=== PATIENT | male | born 1955 | race Caucasian/White ===

== ENCOUNTER 2017-05-10 09:43 | Inpatient (IN) | payer BC, OTHER ==
[2017-05-10 10:22] LABS: #Basophils 0.1 thou/uL (0.0-0.2); #Eosinphils 0.3 thou/uL (0.0-0.7); #Lymphocytes 1.6 thou/uL (1.20-3.40); #Monocytes 0.6 thou/uL (0.11-0.59); #Neutrophils 3.5 thou/uL (1.40-6.50); %Basophils 0.9 % (0.0-1.0); %Eosinophils 4.9 % (0.0-10.0); %Lymphocytes 26.5 % (21.0-51.0); %Monocytes 10.1 % (0.0-10.0); %Neutrophils 57.7 % (42.0-75.0); Hemoglobin 13.8 g/dL (14.0-18.0); Mean Corpuscular HGB CONC 33.2 g/dL (32.0-36.0); Mean Corpuscular Hemoglobin 29.4 pg (27.0-31.0); Mean Corpuscular Volume 88.7 fl (80.0-94.0); Mean Platelet Volume 6.5 fL (7.4-10.4); Platelet Count 301 thou/uL (130-400); RBC Distribution Width 12.8 % (11.5-14.5); White Blood Cell (WBC) Count 6.1 thou/uL (4.8-10.8)
[2017-05-10] MEDS ORDERED: methylPREDNISolone Sod Succ/PF 125 MG/2 ML VIAL ONE (10:34)
[2017-05-10] MEDS ORDERED: Sterile Water 10 ML ONE (10:35)
[2017-05-10 10:44] LABS: ALT (SGPT) 24 U/L (8-55); AST (SGOT) 20 U/L (5-34); Albumin 3.8 g/dL (3.5-5.0); Alkaline Phosphatase 109 U/L (40-150); Anion Gap 13 mmol/L (10-20); BUN (Urea Nitrogen) 9 mg/dL (8.4-25.7); Bilirubin, Total 0.9 mg/dL (0.2-1.2); CK (CPK) 163 U/L (30-200); Calc. Creatinine Clearance 0 mL/min (70-130); Carbon Dioxide 22 mmol/L (22-29); Chloride 105 mmol/L (98-107); Estimated GFR-MDRD Greater than 90; Globulin 2.9 g/dL (2.4-3.5); Glucose 137 mg/dL (70-105); Potassium 3.9 mmol/L (3.5-5.1); Protein, Total 6.7 g/dL (6.0-8.3); Sodium 136 mmol/L (136-145)
[2017-05-10 10:49] LABS: CKMB 2.8 ng/mL (0-6.6); Troponin I Less than 0.010 ng/mL (< 0.028)
--- NOTE | 2017-05-10 10:52 | RAD ---
PORTABLE CHEST ONE VIEW: 05/10/2017 10:00 a.m. HISTORY: Dyspnea. Chest pain. COMPARISON: 12/03/2016 FINDINGS: The heart size is borderline. No lobar consolidations, pneumothoraces, or large effusions are seen. There is blunting of the left costophrenic angle, which may be due to scarring or small effusion. POS: [facility]
[2017-05-10] MEDS ORDERED: Albuterol Sulfate 2.5 mg/3 ml Neb NEB PRN (11:27)
[2017-05-10] MEDS ORDERED: Ondansetron ODT 4 MG TAB PO PRN (11:30)
[2017-05-10] MEDS ORDERED: HYDROcodone/Acetaminophen 5/325 mg Tablet PO PRN (11:30)
[2017-05-10] MEDS ORDERED: Acetaminophen 325 MG TAB PO PRN (11:30)
[2017-05-10] MEDS ORDERED: cefTRIAXone\\ROCEPHIN 1 GM in Sodium Chloride 0.9% 100 ML IVPB SCH (11:30)
[2017-05-10] MEDS ORDERED: Dextrose 5% in Water 1,000 ML IV PRN (11:56)
[2017-05-10] MEDS ORDERED: Dextrose 50% Abboject 50 ML SYRINGE SLOW IVP PRN (11:56)
[2017-05-10] MEDS ORDERED: Diabetic Tussin 200 MG/10 ML UDCUP PO PRN (12:11)
[2017-05-10] MEDS ORDERED: cefTRIAXone\\ROCEPHIN 1 GM, Syringe 0.4 ML in Sterile Water 9.6 ML SLOW IVP SCH (13:00)
[2017-05-10] MEDS ORDERED: Heparin 5,000 UNITS/ML VIAL SC SCH (15:00)
[2017-05-10 16:25] VITALS: BMI 37.3
[2017-05-10 16:38] LABS: Troponin I 0.015 ng/mL (< 0.028)
[2017-05-10] MEDS ORDERED: Sodium Chloride 3% (15 ML) NEB NEB PRN (17:03)
[2017-05-10] MEDS ORDERED: MEPOLIZUMAB 100 MG SQ SCH (17:15)
--- NOTE | 2017-05-10 18:43 | HP ---
PRIMARY CARE PHYSICIAN: None. PRESENTING COMPLAINT: Shortness of breath. HISTORY OF PRESENT ILLNESS: Mr. Leonel Barrera is a 61-year-old male with a past medical history of chronic respiratory failure on home oxygen, COPD, REMINGTON, anxiety disorder who presented to the emergency room with shortness of breath which he reported started this morning. It occurred at rest and is associated with pleuritic chest pain. He denies fevers, chills, PND, orthopnea, palpitations or lower extremity edema. He uses home nebulizers and inhalers without success and called the EMS. On arrival, they immediately gave him nebulizer treatment with some improvement, but due to continued reduced oxygen saturation, he was started on CPAP. PAST MEDICAL HISTORY: As stated in the HPI (COPD, type 2 diabetes mellitus, anxiety disorder, chronic respiratory failure). PAST SURGICAL HISTORY: None. FAMILY HISTORY: Reviewed and noncontributory. SOCIAL HISTORY: Former smoker. Occasionally drinks alcohol, but denies use of illicit drugs. ALLERGIES: No known drug allergies. PHYSICAL EXAMINATION: VITAL SIGNS: Stable. GENERAL: Not in acute distress, on CPAP and saturating well. HEENT: Negative. RESPIRATORY: Per HPI. CARDIOVASCULAR: Per HPI. ABDOMEN: Soft, nontender, nondistended. Bowel sounds positive. No organomegaly. GENITOURINARY: Deferred. MUSCULOSKELETAL: Moves all extremities spontaneously. SKIN: Warm and well-perfused. No rashes or lesions. NEUROLOGIC: Alert and well oriented to time, place and person. No focal deficits. PSYCHIATRIC: Normal mood and affect. Denies SI/HI or depressed mood. LABORATORY DATA: CBC largely unremarkable as well as CMP. Initial troponin less than 0.010. BNP 11. IMAGING: Chest x-ray showed no acute process, apart from blunting of the left costophrenic angle which may be due to scarring or small effusion. EKG showed no signs of acute ischemia. ASSESSMENT AND PLAN: 1. Acute on chronic respiratory failure with hypoxia, which is likely from chronic obstructive pulmonary disease exacerbation which could have been aggravated by an upper respiratory tract infection/bronchitis/pneumonia. He has been started on BiPAP and nebulizer treatment with improvement. We will continue this treatment, add IV levofloxacin and IV Solu-Medrol. We will monitor oxygen status and monitor this patient in the IMCU. 2. Chronic obstructive pulmonary disease exacerbation as above. 3. Type 2 diabetes mellitus. He is currently at goal. We will obtain hemoglobin A1c, place on a diabetic diet. I will monitor his blood sugars before meals and at bedtime. We will also get and restart his home medications. 4. Anxiety disorder, stable. We will resume home medications. LIZZETH
[2017-05-10] MEDS: metFORMIN 500 MG TAB PO SCH (20:13)
[2017-05-10] MEDS: Meclizine HCl 25 MG TAB PO SCH (20:13)
[2017-05-10] MEDS: Montelukast Sodium 10 mg Tablet PO SCH (20:13)
[2017-05-10] MEDS: HumaLOG 300 UNITS/3 ML VIAL SC PRN (20:19)
[2017-05-11 05:35] LABS: #Lymphocytes 0.7 thou/uL (1.20-3.40); #Monocytes 0.3 thou/uL (0.11-0.59); %Basophils 0.1 % (0.0-1.0); %Eosinophils 0.2 % (0.0-10.0); %Lymphocytes 7.5 % (21.0-51.0); %Monocytes 2.9 % (0.0-10.0); %Neutrophils 89.3 % (42.0-75.0); Hemoglobin 13.4 g/dL (14.0-18.0); Mean Corpuscular HGB CONC 34.1 g/dL (32.0-36.0); Mean Corpuscular Hemoglobin 30.3 pg (27.0-31.0); Mean Corpuscular Volume 88.9 fl (80.0-94.0); Mean Platelet Volume 6.9 fL (7.4-10.4); Platelet Count 300 thou/uL (130-400); RBC Distribution Width 12.9 % (11.5-14.5); Red Blood Cell (RBC) Count 4.44 mill/uL (4.70-6.10); White Blood Cell (WBC) Count 8.9 thou/uL (4.8-10.8)
[2017-05-11 05:58] LABS: Hemoglobin A1c 7.6 % (4.0-6.0)
[2017-05-11] MEDS: HumaLOG 300 UNITS/3 ML VIAL SC PRN ×3 (06:02→21:09)
[2017-05-11 06:14] LABS: Anion Gap 10 mmol/L (10-20); BUN (Urea Nitrogen) 13 mg/dL (8.4-25.7); Calc. Creatinine Clearance 151 mL/min (70-130); Calcium 9.3 mg/dL (7.8-10.44); Carbon Dioxide 24 mmol/L (22-29); Chloride 104 mmol/L (98-107); Estimated GFR-MDRD Greater than 90; Glucose 183 mg/dL (70-105); Potassium 4.3 mmol/L (3.5-5.1); Sodium 134 mmol/L (136-145)
[2017-05-11] MEDS: metFORMIN 500 MG TAB PO SCH ×2 (08:41→20:30)
[2017-05-11] MEDS: Meclizine HCl 25 MG TAB PO SCH ×3 (08:41→20:30)
[2017-05-11] MEDS: Enoxaparin Sodium 40 MG/0.4 ML SYRINGE SC SCH (08:42)
[2017-05-11] MEDS ORDERED: NALTREXONE HCL PO SCH (09:00)
[2017-05-11] MEDS ORDERED: BUPROPION HCL PO SCH (09:00)
--- NOTE | 2017-05-11 09:23 | CON ---
DATE OF CONSULTATION: 05/11/2017 HISTORY OF PRESENT ILLNESS: A 61-year-old gentleman who normally seeks care at the [facility], who came in here because of insurance issues. He presented yesterday with coughing and wheezing, developed some right-sided chest pain. He thought he had a collapsed lung. He had a previous left-sided spontaneous pneumothorax requiring thoracotomy and closure of his leak, he says at [facility] some time ago. He is being in and out of the hospital numerous times. He has diagnosis of COPD, sleep apnea. He is a former smoker. He denies any chills or sweats. Denies any obviouschest pain or sputum. PAST MEDICAL HISTORY: COPD, sleep apnea, obesity, spontaneous pneumothorax, diabetes, hypertension, GI problem. MEDICATIONS: Prednisone 20, metformin 500 twice a day, Spiriva once a day, Zoloft 100, Contrave once a day, Singulair 10, Nucala 100, meclizine 25, DuoNeb , Dexilant 60, Symbicort nasal spray. He has now since admission started on steroids, neb treatments, broad-spectrum antibiotics. ALLERGIES: No medications. SOCIAL HISTORY: Worked for the [employer]. FAMILY HISTORY: Unremarkable for any breathing issues. REVIEW OF SYSTEMS: Ten-point negative. PHYSICAL EXAMINATION: VITAL SIGNS: Sats are 94 on 3 liters, pulse 80, respirations 18, temperature 98. CHEST: Diffuse wheezing and rhonchi. CARDIAC: Normal S1, S2. No gallops. ABDOMEN: Soft, no masses. LABORATORY: White count 8000, H&H 13 and 39, platelet count 300. Electrolytes are normal. X-ray shows no acute infiltrates. Clearly, it did not show any pneumothorax which the patient was worried about. IMPRESSION: 1. Chronic obstructive pulmonary disease exacerbation, bronchitis. 2. Right chest pain, no evidence of any pneumothorax. 3. Diabetes. 4. Hypertension. 5. Sleep apnea. PLAN: The patient is on adequate medication, neb treatments, steroids. Switch over to oral medication in the next 24-48 hours, discharged home if she is stable in the next 24-48 hours. We will follow this consultation note, 70 minutes of which 50% of the time spent in direct patient care. LIZZETH
--- NOTE | 2017-05-11 12:23 | PDOC.PN ---
- Subjective Encounter Start Date: 05/11/17 Encounter Start Time: 12:25 Subjective: No new complaints. -: No acute events overnight. Transitioned from bilevel to NC O2 - Objective Resuscitation Status: Resuscitation Status FULL:Full Resuscitation MAR Reviewed: Yes Vital Signs & Weight: Vital Signs (12 hours) Temp Pulse Resp BP Pulse Ox 05/11/17 11:52 99.0 F 120 H 24 H 115/61 95 05/11/17 10:11 118 H 20 94 L 05/11/17 08:00 98 F 88 18 93 L 05/11/17 07:52 92 18 94 L 05/11/17 07:16 98.0 F 88 18 124/65 93 L 05/11/17 03:40 98 19 101/57 L 96 05/11/17 02:10 96 20 96 Weight Weight 251 lb 9 oz I&O: 05/10/17 05/11/17 05/12/17 06:59 06:59 06:59 Intake Total 1441 Balance 1441 Result Diagrams: 05/11/17 04:44 05/11/17 04:44 Additional Labs: Accuchecks 05/11/17 05/11/17 05/10/17 11:06 06:02 20:16 POC Glucose 296 H 195 H 233 H 05/10/17 16:59 POC Glucose 189 H Phys Exam - Physical Examination Constitutional: NAD HEENT: PERRLA, moist MMs, sclera anicteric Neck: supple, full ROM Respiratory: no rales, no rhonchi, wheezing present, clear to auscultation bilateral Cardiovascular: RRR, no significant murmur, no rub Gastrointestinal: soft, non-tender, no distention, positive bowel sounds Musculoskeletal: no edema, pulses present Neurological: non-focal, moves all 4 limbs Psychiatric: normal affect, A&O x 3 Skin: no rash, normal turgor Dx/Plan (1) Acute and chronic respiratory failure with hypoxia Code(s): J96.21 - ACUTE AND CHRONIC RESPIRATORY FAILURE WITH HYPOXIA Status: Acute Comment: Improving with therapy. (2) DM2 (diabetes mellitus, type 2) Status: Acute Qualifiers: Diabetes mellitus complication status: without complication Diabetes mellitus termination clerk insulin use: without care home use Qualified Code(s): E11.9 - Type 2 diabetes mellitus without complications Comment: Controlled. (3) Acute exacerbation of chronic obstructive pulmonary disease Code(s): J44.1 - CHRONIC OBSTRUCTIVE PULMONARY DISEASE W (ACUTE) EXACERBATION Status: Acute Plan: See problem #1 (4) Anxiety Code(s): F41.9 - ANXIETY DISORDER, UNSPECIFIED Status: Acute Comment: Continue home meds. (5) REMINGTON (obstructive sleep apnea) Code(s): G47.33 - OBSTRUCTIVE SLEEP APNEA (ADULT) (PEDIATRIC) Status: Chronic Comment: on home BiPAP. Will continue. - Plan cont current plan of care, continue antibiotics, respiratory therapy, DVT proph w/lovenox Continue abx, O2 supplementation, IV steroids and nebs -: Likely discharge tomorrow. * .
[2017-05-11] MEDS: Mometasone/Formoterol 120 PUFF INHALER INH SCH (19:43)
[2017-05-11] MEDS: Montelukast Sodium 10 mg Tablet PO SCH (20:30)
[2017-05-12] MEDS: HumaLOG 300 UNITS/3 ML VIAL SC PRN ×2 (05:23→12:16)
[2017-05-12 06:03] LABS: #Lymphocytes 0.7 thou/uL (1.20-3.40); #Neutrophils 14.7 thou/uL (1.40-6.50); %Eosinophils 0.2 % (0.0-10.0); %Monocytes 6.1 % (0.0-10.0); %Neutrophils 89.7 % (42.0-75.0); Hemoglobin 13.4 g/dL (14.0-18.0); Mean Corpuscular HGB CONC 33.7 g/dL (32.0-36.0); Mean Corpuscular Hemoglobin 30.2 pg (27.0-31.0); Mean Corpuscular Volume 89.6 fl (80.0-94.0); Mean Platelet Volume 7.2 fL (7.4-10.4); Platelet Count 334 thou/uL (130-400); RBC Distribution Width 12.9 % (11.5-14.5); Red Blood Cell (RBC) Count 4.43 mill/uL (4.70-6.10); White Blood Cell (WBC) Count 16.4 thou/uL (4.8-10.8)
[2017-05-12 06:19] LABS: Anion Gap 16 mmol/L (10-20); BUN (Urea Nitrogen) 29 mg/dL (8.4-25.7); Calc. Creatinine Clearance 135 mL/min (70-130); Calcium 9.3 mg/dL (7.8-10.44); Carbon Dioxide 25 mmol/L (22-29); Chloride 103 mmol/L (98-107); Estimated GFR-MDRD 82; Glucose 265 mg/dL (70-105); Potassium 4.9 mmol/L (3.5-5.1); Sodium 139 mmol/L (136-145)
--- NOTE | 2017-05-12 06:19 | PRG ---
DATE OF SERVICE: 05/12/2017 This morning he is awake, alert, responsive. He is better. PHYSICAL EXAMINATION: VITAL SIGNS: His sats are 92 on 3 liters, pulse 118, blood pressure 130/80, respiration rate 18, he is on BiPAP. CHEST: Chest reveals minimal wheezing. CARDIAC: Normal S1-S2. ABDOMEN: Soft, no masses. IMPRESSION: 1. Chronic obstructive pulmonary disease exacerbation. 2. Bronchitis. 3. Former smoker. PLAN: He is much improved. I deescalated his medications. Switch to oral prednisone, oral antibiot ics, neb treatments, PT. Hopefully he can be discharged home in the next 24-48 hours.
[2017-05-12] MEDS: Mometasone/Formoterol 120 PUFF INHALER INH SCH (06:49)
[2017-05-12] MEDS: metFORMIN 500 MG TAB PO SCH (08:46)
[2017-05-12] MEDS: Meclizine HCl 25 MG TAB PO SCH ×2 (08:50→15:13)
[2017-05-12] MEDS: Enoxaparin Sodium 40 MG/0.4 ML SYRINGE SC SCH (09:05)
[2017-05-12 15:13] VITALS: BP 133/76; TEMP 97.5
--- NOTE | 2017-05-12 21:51 | DIS ---
DATE OF ADMISSION: 05/10/2017 DATE OF DISCHARGE: 05/12/2017 DISCHARGE DIAGNOSES: Acute on chronic hypoxic respiratory failure, chronic obstructive pulmonary disease exacerbation, type 2 diabetes mellitus, obstructive sleep apnea, obesity. HISTORY OF PRESENT ILLNESS/HOSPITAL COURSE: Mr. Holly Mata is a 61- year-old male with a past medical history of chronic respiratory failure on 3 liters home oxygen, COPD, REMINGTON, anxiety disorder, who presented to the emergency room with shortness of breath at rest associated with pleuritic chest pain. He had no fevers, chills, PND, orthopnea, palpitations, lower extremity edema. He used his home nebulizer and inhalers unsuccessfully and decided to call EMS. On arrival, he was given nebulizer treatment with some improvement; however, due to his continued reduced oxygen saturations, he was started on CPAP and transported to the emergency room. In the emergency room, his labs were relatively unremarkable. Chest x-ray showed no acute pathology. EKG has no signs of active ischemia. He was started on BiPAP, IV steroids, nebulizer treatments scheduled and p.r.n., as well as levofloxacin for possible pneumonia/ bronchitis. While on admission, he improved tremendously with treatment, and by the day of discharge, he reports that he felt well and stable for discharge. He was back to his home oxygen requirement and was saturating well. DISCHARGE MEDICATIONS: Levofloxacin 750 mg daily, prednisone 40 mg every morning with breakfast, ipratropium/albuterol sulfate 1 puff inhaled as needed for shortness of breath or wheezing, albuterol sulfate 2.5 mg nebulizers every 2 hours as needed for wheezing, budesonide/formoterol 2 puffs inhaled twice daily, sertraline 100 mg daily, Tiotropium inhaler 18 mcg inhaled daily, sodium chloride 3%, 5 mg 3 times a day as needed for shortness of breath, beclomethasone dipropionate 2 sprays in each naris daily, montelukast sodium 10 mg daily, meclizine 25 mg orally 3 times a day, naltrexone hydrochloride/ bupropion 1 tablet orally every morning, dexlansoprazole 60 mg daily, metformin 500 mg b.i.d., Mucinex 1 tab twice a day, and prednisone 20 mg every morning with breakfast. PHYSICAL EXAMINATION: He was examined on the day of discharge. VITAL SIGNS: Heart rate was 95, temperature 97.8 degrees Fahrenheit, oxygen saturation 95% on 3 liters nasal cannula, respiration rate 16, blood pressure 133/76. GENERAL: Not in acute distress, sitting comfortably in bed. HEENT: PERRLA. Moist mucous membranes. Sclerae are anicteric. NECK: Supple. Full range of movement. RESPIRATORY: No rales, no rhonchi, minimal wheezing bilateral lung galaviz, clear to auscultation otherwise bilaterally. CARDIOVASCULAR: Regular rate and rhythm. No murmurs, rubs or gallops. GASTROINTESTINAL: Soft, nontender, nondistended, positive bowel sounds. No organomegaly. MUSCULOSKELETAL: No edema. Pulses present. NEUROLOGICAL: Nonfocal. Moves all limbs spontaneously. PSYCHIATRIC: Normal mood and affect. Alert and well oriented to time, place, and person. SKIN: No rash or lesions. Warm, dry, and well-perfused. LABORATORY DATA: Sodium 139, potassium 4.9, chloride 103, carbon dioxide 25, anion gap 16, BUN 29, creatinine 0.94, glucose 265, calcium 9.3. WBC 16.4, hemoglobin 13.4, and platelets 334. IMAGING: Chest x-ray (05/10/2017). Heart size is borderline. No lobar consolidation, pneumothorax or large effusions are seen. Blunting of left costophrenic angle, which may be due to scarring or small effusion. CONSULTS: None. CONDITION AT DISCHARGE: Stable and improved. PROCEDURES: None. DIET: Heart healthy, diabetic. CARE GOALS: To follow up with his primary care physician within 1 week of discharge. ACTIVITY: Resume as tolerated. Discharge time 65 minutes including chart review and documentation. [facility]ITALSharif
--- NOTE | 2017-05-15 19:43 | EKG ---
Test Reason : Blood Pressure : / mmHG Vent. Rate : 091 BPM Atrial Rate : 091 BPM P-R Int : 178 ms QRS Dur : 086 ms QT Int : 344 ms P-R-T Axes : 041 062 028 degrees QTc Int : 423 ms Normal sinus rhythm Normal ECG Confirmed by JANNET JIMENEZ, BRITNEY Aldridge ([id number]), make up editor ALVINO APONTE ([id number]) on 05/15/2017 7:43:15 PM Referred By: MEHNAZ Confirmed By:BRITNEY POWER MD
== END 2017-05-12 15:50 | disposition home or self-care (01) | DRG 189 ==
LOC: ERS 09:43 → IMCU/EMU 11:30 → T4-B 05-11 16:59
PROVIDERS: ADMIT Internal Medicine; ATTEND Internal Medicine
PROC: 5A09357 Assistance with Respiratory Ventilation, Less than 24 Consecutive Hours, Continuous Positive Airway Pressure (ICD-10-PCS; principal; 2017-05-11)
DX: J96.21 Acute and chronic respiratory failure with hypoxia (principal); J44.1 Chronic obstructive pulmonary disease with (acute) exacerbation; Z99.81 Dependence on supplemental oxygen; E11.9 Type 2 diabetes mellitus without complications; F41.9 Anxiety disorder, unspecified; G47.33 Obstructive sleep apnea (adult) (pediatric); I10 Essential (primary) hypertension; E66.9 Obesity, unspecified; Z68.37 Body mass index [BMI] 37.0-37.9, adult; Z87.891 Personal history of nicotine dependence; Z79.84 Long term (current) use of oral hypoglycemic drugs; Z79.899 Other long term (current) drug therapy
CPT/HCPCS: 36415; 36416; 71045; 80048; 80053; 82550; 82553; 83036; 83880; 84484; 85025; 93005; 94640; 94660; 94664; 96374; 96375; A4216; J0696; J1650; J1956; J2920; J2930; J7620

== ENCOUNTER 2017-07-02 22:15 | Inpatient (IN) | payer OTHER ==
[2017-07-02] MEDS ORDERED: methylPREDNISolone Sod Succ/PF 125 MG/2 ML VIAL ONE (22:48)
[2017-07-02 22:53] LABS: #Basophils 0.1 thou/uL (0.0-0.2); #Eosinphils 0.6 thou/uL (0.0-0.7); #Lymphocytes 1.9 thou/uL (1.20-3.40); #Monocytes 0.6 thou/uL (0.11-0.59); #Neutrophils 4.6 thou/uL (1.40-6.50); %Eosinophils 7.7 % (0.0-10.0); %Lymphocytes 24.8 % (21.0-51.0); %Monocytes 7.4 % (0.0-10.0); %Neutrophils 59.1 % (42.0-75.0); Hemoglobin 14.4 g/dL (14.0-18.0); Mean Corpuscular HGB CONC 35.3 g/dL (32.0-36.0); Mean Corpuscular Hemoglobin 30.7 pg (27.0-31.0); Mean Corpuscular Volume 86.9 fl (80.0-94.0); Mean Platelet Volume 7.1 fL (7.4-10.4); Platelet Count 256 thou/uL (130-400); RBC Distribution Width 14.4 % (11.5-14.5); White Blood Cell (WBC) Count 7.7 thou/uL (4.8-10.8)
--- NOTE | 2017-07-02 22:59 | RAD ---
SINGLE VIEW OF THE CHEST: 07/02/17 COMPARISON: 05/10/17 HISTORY: Wheezing and dyspnea. FINDINGS: Single view of the chest shows a normal sized cardiomediastinal silhouette. There is no evidence of c onsolidation, mass, or pleural effusion. The bones are unremarkable. IMPRESSION: No evidence of acute cardiopulmonary disease. POS: [facility]
[2017-07-02] MEDS ORDERED: Albuterol Sulfate 2.5 mg/3 ml Neb ONE (23:01)
[2017-07-02 23:04] LABS: ALT (SGPT) 23 U/L (8-55); AST (SGOT) 19 U/L (5-34); Alkaline Phosphatase 119 U/L (40-150); Anion Gap 17 mmol/L (10-20); BUN (Urea Nitrogen) 16 mg/dL (8.4-25.7); Bilirubin, Total 0.4 mg/dL (0.2-1.2); CK (CPK) 80 U/L (30-200); Calc. Creatinine Clearance 0 mL/min (70-130); Calcium 9.2 mg/dL (7.8-10.44); Carbon Dioxide 20 mmol/L (22-29); Chloride 108 mmol/L (98-107); Estimated GFR-MDRD 74; Globulin 3.3 g/dL (2.4-3.5); Glucose 175 mg/dL (70-105); Potassium 4.1 mmol/L (3.5-5.1); Protein, Total 7.3 g/dL (6.0-8.3); Sodium 141 mmol/L (136-145)
[2017-07-02 23:07] LABS: CKMB 2.2 ng/mL (0-6.6); Troponin I Less than 0.010 ng/mL (< 0.028)
[2017-07-03] MEDS ORDERED: Acetaminophen 325 MG TAB PO PRN ×2 (01:02→01:05)
[2017-07-03] MEDS ORDERED: Ondansetron HCl/PF 4 MG/2 ML Vial IVP PRN ×2 (01:02→01:05)
[2017-07-03] MEDS ORDERED: Ondansetron ODT 4 MG TAB SL PRN (01:02)
[2017-07-03] MEDS ORDERED: Dextrose 5% in Water 1,000 ML IV PRN (01:05)
[2017-07-03] MEDS ORDERED: Ondansetron ODT 4 MG TAB PO PRN (01:05)
[2017-07-03] MEDS ORDERED: Dextrose 50% Abboject 50 ML SYRINGE SLOW IVP PRN (01:05)
[2017-07-03] MEDS ORDERED: Lorazepam 1 MG TAB PO PRN (01:05)
[2017-07-03] MEDS ORDERED: Mag-Al 1200 mg/1200 mg/30 ML UDCUP PO PRN (01:05)
[2017-07-03] MEDS ORDERED: hydrALAZINE 20 MG/ML VIAL SLOW IVP PRN (01:05)
[2017-07-03] MEDS ORDERED: Milk Of Magnesia 30 ML UDCUP PO PRN (01:05)
[2017-07-03 01:12] VITALS: BMI 37.1
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
[2017-07-03] MEDS: Sodium Chloride 0.9% 1,000 ML IV SCH (01:55)
[2017-07-03] MEDS ORDERED: Magnesium 2 GM/NS 0.9% 100 ML 2 GM in Premix Bag 1 BAG IVPB SCH (02:15)
[2017-07-03] MEDS ORDERED: Magnesium 2 GM/NS 0.9% 50 ML 2 GM in Premix Bag 1 BAG IVPB SCH (02:15)
[2017-07-03] MEDS ORDERED: Albuterol Sulfate 2.5 mg/3 ml Neb NEB SCH (02:30)
[2017-07-03 02:53] LABS: Base Excess (BEa) -3.3 mEq/L (0 (+/-) 2.5); CO2 Tension 40.8 mmHg (35.0-45.0); Hematocrit-ABG 42.6 % (42.0-52.0); O2 Tension (PaO2) 129.3 mmHg (80.0-100.0); pH, Arterial 7.35 (7.35-7.45)
[2017-07-03 02:54] LABS: Calcium, Ionized 1.2 mmol/L (1.12-1.30); Hemoglobin (Hb) -3.3 g/dL (14.0-18.0); Puncture Site RRAD
[2017-07-03 04:37] LABS: #Eosinphils 0.1 thou/uL (0.0-0.7); #Lymphocytes 0.4 thou/uL (1.20-3.40); #Monocytes 0.2 thou/uL (0.11-0.59); #Neutrophils 6.3 thou/uL (1.40-6.50); %Basophils 0.2 % (0.0-1.0); %Eosinophils 0.8 % (0.0-10.0); %Lymphocytes 5.5 % (21.0-51.0); %Monocytes 2.3 % (0.0-10.0); %Neutrophils 91.2 % (42.0-75.0); Hemoglobin 13.7 g/dL (14.0-18.0); Mean Corpuscular HGB CONC 34.2 g/dL (32.0-36.0); Mean Corpuscular Volume 87.8 fl (80.0-94.0); Mean Platelet Volume 7.2 fL (7.4-10.4); Platelet Count 225 thou/uL (130-400); RBC Distribution Width 14.3 % (11.5-14.5); Red Blood Cell (RBC) Count 4.56 mill/uL (4.70-6.10); White Blood Cell (WBC) Count 6.9 thou/uL (4.8-10.8)
[2017-07-03 04:58] LABS: Anion Gap 16 mmol/L (10-20); BUN (Urea Nitrogen) 13 mg/dL (8.4-25.7); Calc. Creatinine Clearance 125 mL/min (70-130); Calcium 9.1 mg/dL (7.8-10.44); Carbon Dioxide 19 mmol/L (22-29); Chloride 105 mmol/L (98-107); Estimated GFR-MDRD 75; Glucose 277 mg/dL (70-105); Potassium 4.3 mmol/L (3.5-5.1); Sodium 136 mmol/L (136-145)
[2017-07-03] MEDS: HumaLOG 300 UNITS/3 ML VIAL SC PRN ×3 (06:17→20:23)
[2017-07-03] MEDS ORDERED: Ipratropium Bromide 2.5 ml Neb NEB SCH (07:00)
[2017-07-03] MEDS ORDERED: Spiriva 18 MCG CAP (Box of 5 Caps) INH SCH (07:00)
[2017-07-03] MEDS: Enoxaparin Sodium 40 MG/0.4 ML SYRINGE SC SCH (07:59)
[2017-07-03] MEDS: Montelukast Sodium 10 mg Tablet PO SCH ×2 (07:59)
[2017-07-03] MEDS: Famotidine 20 MG TAB PO SCH ×2 (07:59→20:20)
[2017-07-03] MEDS: metFORMIN 500 MG TAB PO SCH ×2 (07:59→18:07)
[2017-07-03] MEDS: guaiFENesin ER 600 MG TAB PO SCH ×2 (07:59→20:20)
[2017-07-03] MEDS: Mometasone/Formoterol 120 PUFF INHALER INH SCH ×2 (09:06→18:52)
--- NOTE | 2017-07-03 11:24 | PDOC.PN ---
- Subjective Encounter Start Date: 07/03/17 Encounter Start Time: 09:45 Subjective: breathing better now, is off bipap from 6am -: no chest pain -: normally uses bipap at home for REMINGTON per patient - Objective Resuscitation Status: Resuscitation Status FULL:Full Resuscitation MAR Reviewed: Yes Vital Signs & Weight: Vital Signs (12 hours) Temp Pulse Resp BP BP Pulse Ox 07/03/17 08:43 85 20 94 L 07/03/17 08:00 98.5 F 84 22 H 94 L 07/03/17 07:05 98.5 F 84 22 H 162/87 H 92 L 07/03/17 04:17 97.4 F L 75 22 H 156/90 H 97 07/03/17 04:09 94 L 07/03/17 04:04 90 23 H 96 07/03/17 02:05 82 07/03/17 02:03 80 20 96 07/03/17 02:01 82 24 H 147/81 H 97 07/03/17 00:46 98.4 F 86 25 H 166/82 H 95 Weight Weight 251 lb 8 oz I&O: 07/02/17 07/03/17 07/04/17 06:59 06:59 06:59 Intake Total 762 600 Output Total 700 Balance 62 600 Result Diagrams: 07/03/17 04:00 07/03/17 04:00 Additional Labs: Accuchecks 07/03/17 07/03/17 10:51 05:51 POC Glucose 203 H 241 H Phys Exam - Physical Examination HEENT: PERRLA, moist MMs Neck: no JVD, supple Respiratory: no rales, wheezing present Cardiovascular: RRR, no significant murmur Gastrointestinal: soft, non-tender, positive bowel sounds Musculoskeletal: no edema, pulses present Neurological: non-focal, moves all 4 limbs Psychiatric: normal affect, A&O x 3 Dx/Plan (1) Acute and chronic respiratory failure with hypoxia Code(s): J96.21 - ACUTE AND CHRONIC RESPIRATORY FAILURE WITH HYPOXIA Status: Acute (2) Acute exacerbation of chronic obstructive pulmonary disease Code(s): J44.1 - CHRONIC OBSTRUCTIVE PULMONARY DISEASE W (ACUTE) EXACERBATION Status: Acute (3) Anxiety Code(s): F41.9 - ANXIETY DISORDER, UNSPECIFIED Status: Chronic Comment: Continue home meds. 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 (5) REMINGTON (obstructive sleep apnea) Code(s): G47.33 - OBSTRUCTIVE SLEEP APNEA (ADULT) (PEDIATRIC) Status: Chronic Comment: on home BiPAP. Will continue. (6) Obesity Code(s): E66.9 - OBESITY, UNSPECIFIED Status: Chronic Qualifiers: Body mass index: BMI 37.0-37.9 - Plan on solumedrol, nebs -: empiric levaquin -: is feeling better from this am, has taken his bipap off at 6am and is comfo -: -rtable on room air now -: july tx to [facility] floor once cleared by pulm service * . Review of Systems - Medications/Allergies Allergies/Adverse Reactions: Allergies Allergy/AdvReac Type Severity Reaction Status Date / Time venom-honey bee Allergy Severe Anaphylaxis Verified 06/16/14 03:22 [bee venom (honey bee)] No Known Drug Allergies Allergy Verified 09/25/14 10:39 Medications: Current Medications Acetaminophen (Tylenol) 650 mg PO Q4H PRN PRN Reason: Headache/Fever or Pain Al Hydroxide/Mg Hydroxide (Maalox) 30 ml PO Q6H PRN PRN Reason: Heartburn or Indigestion Albuterol/Ipratropium (Duoneb) 3 ml NEB Q4H PRN PRN Reason: SOB &/or Wheezing Last Admin: 07/03/17 04:04 Dose: 3 ml Albuterol/Ipratropium (Duoneb) 3 ml NEB [id number] [facility] Last Admin: 07/03/17 08:43 Dose: 3 ml Benzonatate (Tessalon) 100 mg PO Q4H PRN PRN Reason: Cough Dextrose/Water (Dextrose 50%) 25 gm SLOW IVP PRN PRN PRN Reason: Hypoglycemia Enoxaparin Sodium (Lovenox) 40 mg SC 0900 [facility] Last Admin: 07/03/17 07:59 Dose: 40 mg Famotidine (Pepcid) 20 mg PO BID [facility] Last Admin: 07/03/17 07:59 Dose: 20 mg Glucagon (Glucagon) 1 mg IM PRN PRN PRN Reason: Hypoglycemia Guaifenesin (Mucinex) 600 mg PO Q12HR [facility] Last Admin: 07/03/17 07:59 Dose: 600 mg Hydralazine HCl (Apresoline) 10 mg SLOW IVP Q4H PRN PRN Reason: Systolic BP > 180 Dextrose/Water (D5w) 1,000 mls @ 0 mls/hr IV .Q0M PRN; As Directed PRN Reason: Hypoglycemia Levofloxacin 750 mg/ Device 150 mls @ 100 mls/hr IVPB Q24HR [facility] Last Admin: 07/03/17 01:55 Dose: 150 mls Sodium Chloride (Normal Saline 0.9%) 1,000 mls @ 50 mls/hr IV .Q20H [facility] Last Admin: 07/03/17 01:55 Dose: 1,000 mls Insulin Human Lispro (Humalog) 0 units SC .MODERATE SLIDING SC PRN PRN Reason: Moderate Correctional Scale Last Admin: 07/03/17 11:09 Dose: 4 unit Insulin Human Lispro (Humalog) 0 units SC .BEDTIME SLIDING SC PRN PRN Reason: Bedtime Correctional Scale Lorazepam (Ativan) 0.5 mg PO Q4H PRN PRN Reason: Anxiety/Agitation Magnesium Hydroxide (Milk Of Magnesium) 30 ml PO DAILYPRN PRN PRN Reason: Constipation Metformin HCl (Glucophage) 500 mg PO BID-WM [facility] Last Admin: 07/03/17 07:59 Dose: 500 mg Methylprednisolone Sodium Succinate (Solu-Medrol) 40 mg IVP Q6HR [facility] Last Admin: 07/03/17 11:10 Dose: 40 mg Mometasone Furoate/Formoterol Fumar (Dulera 200 Mcg/5 Mcg Inhaler) 2 puff INH BID-RT [facility] Last Admin: 07/03/17 09:06 Dose: 2 puff Montelukast Sodium (Singulair) 10 mg PO DAILY [facility] Last Admin: 07/03/17 07:59 Dose: 10 mg Ondansetron HCl (Zofran Odt) 4 mg PO Q6H PRN PRN Reason: Nausea/Vomiting Ondansetron HCl (Zofran) 4 mg IVP Q6H PRN PRN Reason: Nausea/Vomiting Sertraline HCl (Zoloft) 100 mg PO DAILY [facility] Last Admin: 07/03/17 07:59 Dose: 100 mg Sodium Chloride (Flush - Normal Saline) 10 ml IVF PRN PRN PRN Reason: Saline Flush Stop: 07/03/17 12:00
[2017-07-03] MEDS: ALPRAZolam 0.25 MG TAB PO SCH ×2 (14:34→20:20)
[2017-07-04] MEDS: Sodium Chloride 0.9% 1,000 ML IV SCH ×2 (00:34→17:09)
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
[2017-07-04] MEDS: HumaLOG 300 UNITS/3 ML VIAL SC PRN ×3 (06:32→20:13)
[2017-07-04] MEDS: ALPRAZolam 0.25 MG TAB PO SCH ×3 (08:22→20:12)
[2017-07-04] MEDS: metFORMIN 500 MG TAB PO SCH ×2 (08:22→17:09)
[2017-07-04] MEDS: guaiFENesin ER 600 MG TAB PO SCH ×2 (08:22→20:11)
[2017-07-04] MEDS: Famotidine 20 MG TAB PO SCH ×2 (08:22→20:11)
[2017-07-04] MEDS: Enoxaparin Sodium 40 MG/0.4 ML SYRINGE SC SCH (08:23)
[2017-07-04] MEDS: Montelukast Sodium 10 mg Tablet PO SCH ×2 (08:23)
[2017-07-04] MEDS: Mometasone/Formoterol 120 PUFF INHALER INH SCH ×2 (10:32→18:38)
--- NOTE | 2017-07-04 12:33 | PDOC.PN ---
- Subjective Encounter Start Date: 07/04/17 Encounter Start Time: 10:25 Subjective: sob is better -: is using bipap at night - Objective Resuscitation Status: Resuscitation Status FULL:Full Resuscitation MAR Reviewed: Yes Vital Signs & Weight: Vital Signs (12 hours) Temp Pulse Resp BP Pulse Ox 07/04/17 11:45 98.1 F 97 18 137/86 95 07/04/17 10:31 100 18 94 L 07/04/17 08:00 98.5 F 100 18 139/77 95 07/04/17 06:14 75 07/04/17 06:12 92 18 98 07/04/17 04:20 98.5 F 96 21 H 125/83 97 07/04/17 03:39 107 H 34 H 95 07/04/17 00:33 98.1 F 94 24 H 125/83 94 L Weight Weight 251 lb 8 oz I&O: 07/03/17 07/04/17 07/05/17 06:59 06:59 06:59 Intake Total 762 2880 Output Total 700 3600 Balance 62 -720 Result Diagrams: 07/03/17 04:00 07/03/17 04:00 Additional Labs: Accuchecks 07/04/17 07/04/17 07/03/17 11:38 06:33 20:25 POC Glucose 173 H 228 H 221 H Phys Exam - Physical Examination HEENT: PERRLA, moist MMs Neck: no JVD, supple Respiratory: no rales, wheezing present Cardiovascular: RRR, no significant murmur, no rub Gastrointestinal: soft, non-tender, positive bowel sounds Musculoskeletal: no edema, pulses present Neurological: non-focal, moves all 4 limbs Psychiatric: A&O x 3 Dx/Plan (1) Acute and chronic respiratory failure with hypoxia Code(s): J96.21 - ACUTE AND CHRONIC RESPIRATORY FAILURE WITH HYPOXIA Status: Resolved (2) Acute exacerbation of chronic obstructive pulmonary disease Code(s): J44.1 - CHRONIC OBSTRUCTIVE PULMONARY DISEASE W (ACUTE) EXACERBATION Status: Acute (3) Anxiety Code(s): F41.9 - ANXIETY DISORDER, UNSPECIFIED Status: Chronic Comment: Continue home meds. (4) DM2 (diabetes mellitus, type 2) Status: Chronic Qualifiers: Diabetes mellitus meterman insulin use: without meterman use Diabetes mellitus complication status: with unspecified complications Qualified Code(s) : E11.8 - Type 2 diabetes mellitus with unspecified complications Comment: Controlled. (5) REMINGTON (obstructive sleep apnea) Code(s): G47.33 - OBSTRUCTIVE SLEEP APNEA (ADULT) (PEDIATRIC) Status: Chronic Comment: on home BiPAP. Will continue. (6) Obesity Code(s): E66.9 - OBESITY, UNSPECIFIED Status: Chronic Qualifiers: Body mass index: BMI 37.0-37.9 - Plan hemostable -: is on solumedrol 40mg q6h, nebs, empiric levaquin -: may tx to med floor if they can handle bipap at night -: pt cant get his personal bipap machine from home * . Review of Systems - Medications/Allergies Allergies/Adverse Reactions: Allergies Allergy/AdvReac Type Severity Reaction Status Date / Time venom-honey bee Allergy Severe Anaphylaxis Verified 06/16/14 03:22 [bee venom (honey bee)] No Known Drug Allergies Allergy Verified 09/25/14 10:39 Medications: Current Medications Acetaminophen (Tylenol) 650 mg PO Q4H PRN PRN Reason: Headache/Fever or Pain Last Admin: 07/03/17 20:20 Dose: 650 mg Al Hydroxide/Mg Hydroxide (Maalox) 30 ml PO Q6H PRN PRN Reason: Heartburn or Indigestion Albuterol/Ipratropium (Duoneb) 3 ml NEB Q4H PRN PRN Reason: SOB &/or Wheezing Last Admin: 07/04/17 03:39 Dose: 3 ml Albuterol/Ipratropium (Duoneb) 3 ml NEB [id number] [facility] Last Admin: 07/04/17 10:31 Dose: 3 ml Alprazolam (Xanax) 0.25 mg PO TID [facility] Last Admin: 07/04/17 08:22 Dose: 0.25 mg Benzonatate (Tessalon) 100 mg PO Q4H PRN PRN Reason: Cough Dextrose/Water (Dextrose 50%) 25 gm SLOW IVP PRN PRN PRN Reason: Hypoglycemia Enoxaparin Sodium (Lovenox) 40 mg SC 0900 [facility] Last Admin: 07/04/17 08:23 Dose: 40 mg Famotidine (Pepcid) 20 mg PO BID [facility] Last Admin: 07/04/17 08:22 Dose: 20 mg Glucagon (Glucagon) 1 mg IM PRN PRN PRN Reason: Hypoglycemia Guaifenesin (Mucinex) 1,200 mg PO Q12HR [facility] Hydralazine HCl (Apresoline) 10 mg SLOW IVP Q4H PRN PRN Reason: Systolic BP > 180 Dextrose/Water (D5w) 1,000 mls @ 0 mls/hr IV .Q0M PRN; As Directed PRN Reason: Hypoglycemia Sodium Chloride (Normal Saline 0.9%) 1,000 mls @ 50 mls/hr IV .Q20H [facility] Last Admin: 07/04/17 00:34 Dose: 1,000 mls Insulin Human Lispro (Humalog) 0 units SC .MODERATE SLIDING SC PRN PRN Reason: Moderate Correctional Scale Last Admin: 07/04/17 12:01 Dose: 2 unit Insulin Human Lispro (Humalog) 0 units SC .BEDTIME SLIDING SC PRN PRN Reason: Bedtime Correctional Scale Last Admin: 07/03/17 20:23 Dose: 2 unit Levofloxacin (Levaquin) 500 mg PO 0600 [facility] Last Admin: 07/04/17 06:30 Dose: 500 mg Lorazepam (Ativan) 0.5 mg PO Q4H PRN PRN Reason: Anxiety/Agitation Magnesium Hydroxide (Milk Of Magnesium) 30 ml PO DAILYPRN PRN PRN Reason: Constipation Metformin HCl (Glucophage) 500 mg PO BID-WM [facility] Last Admin: 07/04/17 08:22 Dose: 500 mg Methylprednisolone Sodium Succinate (Solu-Medrol) 20 mg IVP Q6HR [facility] Last Admin: 07/04/17 12:02 Dose: 20 mg Mometasone Furoate/Formoterol Fumar (Dulera 200 Mcg/5 Mcg Inhaler) 2 puff INH BID-RT [facility] Last Admin: 07/04/17 10:32 Dose: 2 puff Montelukast Sodium (Singulair) 10 mg PO DAILY [facility] Last Admin: 07/04/17 08:23 Dose: 10 mg Ondansetron HCl (Zofran Odt) 4 mg PO Q6H PRN PRN Reason: Nausea/Vomiting Ondansetron HCl (Zofran) 4 mg IVP Q6H PRN PRN Reason: Nausea/Vomiting Sertraline HCl (Zoloft) 100 mg PO DAILY [facility] Last Admin: 07/04/17 08:23 Dose: 100 mg
--- NOTE | 2017-07-04 15:04 | PRG ---
DATE OF SERVICE: 07/04/2017 SUBJECTIVE: Mr. Barrera had 2 episodes, one last night and one this morning where he suddenly go t short of breath. He said he could not get air in. I asked about panic attacks, but he quickly den ies. He said he has ever had a panic attack. He actually looks great between these episodes. Suppo se he could be plugging up with mucus, so we have increased his Mucinex and increased frequency of hi s nebulizer treatments. His lungs are clear when I evaluated him today. OBJECTIVE: VITAL SIGNS: Have been stable. He does not have a significant resting tachycardia. His heart rates were 97 and 100. Respiratory rate is in the teens. Oximetry is 94% on room air. LUNGS: Clear. HEART: Regular rhythm. ABDOMEN: Soft. IMPRESSION AND PLAN: Chronic obstructive pulmonary disease exacerbation, slowly improving with these intermittent episodes that frightened him. He should stay in the Intermediate Care Unit for now.
[2017-07-05] MEDS: HumaLOG 300 UNITS/3 ML VIAL SC PRN ×2 (05:54→11:17)
[2017-07-05] MEDS: Mometasone/Formoterol 120 PUFF INHALER INH SCH ×2 (08:25→20:17)
--- NOTE | 2017-07-05 08:48 | PRG ---
DATE OF SERVICE: 07/05/2017 This morning he is doing well, less short of breath, less cough. 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 He is no longer coughing or wheezing anymore. PHYSICAL EXAMINATION: VITAL SIGNS: His vital signs are much improved. Blood pressure is 116/67, sats 90% on room air, res piration rate 18, pulse 80. CHEST: No wheezing. CARDIAC: Normal S1, S2. ABDOMEN: Soft, no masses. IMPRESSION: Chronic obstructive pulmonary disease exacerbation. PLAN: Switch to oral prednisone, hopefully when stable, he can be discharged home in the next 24-[address] Pedroza will follow while in the hospital.
[2017-07-05] MEDS: metFORMIN 500 MG TAB PO SCH ×2 (08:50→17:06)
[2017-07-05] MEDS: Montelukast Sodium 10 mg Tablet PO SCH ×2 (08:51)
[2017-07-05] MEDS: guaiFENesin ER 600 MG TAB PO SCH ×2 (08:51→20:45)
[2017-07-05] MEDS: Famotidine 20 MG TAB PO SCH ×2 (08:51→20:46)
[2017-07-05] MEDS: ALPRAZolam 0.25 MG TAB PO SCH ×3 (08:52→20:45)
[2017-07-05] MEDS: Enoxaparin Sodium 40 MG/0.4 ML SYRINGE SC SCH (08:52)
--- NOTE | 2017-07-05 14:22 | PDOC.PN ---
- Subjective Encounter Start Date: 07/05/17 Encounter Start Time: 12:00 Subjective: breathing better, no palp - Objective Resuscitation Status: Resuscitation Status FULL:Full Resuscitation MAR Reviewed: Yes Vital Signs & Weight: Vital Signs (12 hours) Temp Pulse Resp BP BP Pulse Ox 07/05/17 13:56 88 16 94 L 07/05/17 11:19 92 18 93 L 07/05/17 11:04 98.2 F 83 12 139/85 93 L 07/05/17 08:24 105 H 18 94 L 07/05/17 08:00 97.5 F L 105 H 18 94 L 07/05/17 07:29 97.5 F L 96 14 145/96 H 95 07/05/17 04:00 88 20 116/67 98 Weight Weight 252 lb 8 oz I&O: 07/04/17 07/05/17 07/06/17 06:59 06:59 06:59 Intake Total 2880 3000 Output Total 3600 1675 550 Balance -720 1325 -550 Result Diagrams: 07/03/17 04:00 07/03/17 04:00 Additional Labs: Accuchecks 07/05/17 07/05/17 07/04/17 10:28 05:55 20:15 POC Glucose 186 H 199 H 250 H Phys Exam - Physical Examination HEENT: PERRLA, moist MMs Neck: no JVD, supple Respiratory: no rales, wheezing present Cardiovascular: RRR, no significant murmur Gastrointestinal: soft, non-tender, positive bowel sounds Musculoskeletal: no edema, pulses present Neurological: non-focal, moves all 4 limbs Psychiatric: normal affect, A&O x 3 Dx/Plan (1) Acute and chronic respiratory failure with hypoxia Code(s): J96.21 - ACUTE AND CHRONIC RESPIRATORY FAILURE WITH HYPOXIA Status: Resolved (2) Acute exacerbation of chronic obstructive pulmonary disease Code(s): J44.1 - CHRONIC OBSTRUCTIVE PULMONARY DISEASE W (ACUTE) EXACERBATION Status: Acute (3) Anxiety Code(s): F41.9 - ANXIETY DISORDER, UNSPECIFIED Status: Chronic Comment: Continue home meds. (4) DM2 (diabetes mellitus, type 2) Status: Chronic Qualifiers: Diabetes mellitus continuous churn buttermaker insulin use: without custodial use Diabetes mellitus complication status: with unspecified complications Qualified Code(s) : E11.8 - Type 2 diabetes mellitus with unspecified complications Comment: Controlled. (5) REMINGTON (obstructive sleep apnea) Code(s): G47.33 - OBSTRUCTIVE SLEEP APNEA (ADULT) (PEDIATRIC) Status: Chronic Comment: on home BiPAP. Will continue. (6) Obesity Code(s): E66.9 - OBESITY, UNSPECIFIED Status: Chronic Qualifiers: Body mass index: BMI 37.0-37.9 - Plan is on solumedrol, levaquin and duonebs -: to amb as tolerated -: dc iv fluids -: bipap home settings at night * . Review of Systems - Medications/Allergies Allergies/Adverse Reactions: Allergies Allergy/AdvReac Type Severity Reaction Status Date / Time venom-honey bee Allergy Severe Anaphylaxis Verified 06/16/14 03:22 [bee venom (honey bee)] No Known Drug Allergies Allergy Verified 09/25/14 10:39 Medications: Current Medications Acetaminophen (Tylenol) 650 mg PO Q4H PRN PRN Reason: Headache/Fever or Pain Last Admin: 07/03/17 20:20 Dose: 650 mg Al Hydroxide/Mg Hydroxide (Maalox) 30 ml PO Q6H PRN PRN Reason: Heartburn or Indigestion Albuterol/Ipratropium (Duoneb) 3 ml NEB Q4H PRN PRN Reason: SOB &/or Wheezing Last Admin: 07/04/17 03:39 Dose: 3 ml Albuterol/Ipratropium (Duoneb) 3 ml NEB [id number] [facility] Last Admin: 07/05/17 13:56 Dose: 3 ml Alprazolam (Xanax) 0.25 mg PO TID [facility] Last Admin: 07/05/17 08:52 Dose: 0.25 mg Benzonatate (Tessalon) 100 mg PO Q4H PRN PRN Reason: Cough Dextrose/Water (Dextrose 50%) 25 gm SLOW IVP PRN PRN PRN Reason: Hypoglycemia Enoxaparin Sodium (Lovenox) 40 mg SC 0900 [facility] Last Admin: 07/05/17 08:52 Dose: 40 mg Famotidine (Pepcid) 20 mg PO BID [facility] Last Admin: 07/05/17 08:51 Dose: 20 mg Glucagon (Glucagon) 1 mg IM PRN PRN PRN Reason: Hypoglycemia Guaifenesin (Mucinex) 1,200 mg PO Q12HR [facility] Last Admin: 07/05/17 08:51 Dose: 1,200 mg Hydralazine HCl (Apresoline) 10 mg SLOW IVP Q4H PRN PRN Reason: Systolic BP > 180 Dextrose/Water (D5w) 1,000 mls @ 0 mls/hr IV .Q0M PRN; As Directed PRN Reason: Hypoglycemia Sodium Chloride (Normal Saline 0.9%) 1,000 mls @ 50 mls/hr IV .Q20H [facility] Last Admin: 07/04/17 17:09 Dose: 1,000 mls Insulin Human Lispro (Humalog) 0 units SC .MODERATE SLIDING SC PRN PRN Reason: Moderate Correctional Scale Last Admin: 07/05/17 11:17 Dose: 2 unit Insulin Human Lispro (Humalog) 0 units SC .BEDTIME SLIDING SC PRN PRN Reason: Bedtime Correctional Scale Last Admin: 07/04/17 20:13 Dose: 3 unit Levofloxacin (Levaquin) 500 mg PO 0600 [facility] Last Admin: 07/05/17 05:51 Dose: 500 mg Lorazepam (Ativan) 0.5 mg PO Q4H PRN PRN Reason: Anxiety/Agitation Magnesium Hydroxide (Milk Of Magnesium) 30 ml PO DAILYPRN PRN PRN Reason: Constipation Metformin HCl (Glucophage) 500 mg PO BID-WM [facility] Last Admin: 07/05/17 08:50 Dose: 500 mg Mometasone Furoate/Formoterol Fumar (Dulera 200 Mcg/5 Mcg Inhaler) 2 puff INH BID-RT [facility] Last Admin: 07/05/17 08:25 Dose: 2 puff Montelukast Sodium (Singulair) 10 mg PO DAILY [facility] Last Admin: 07/05/17 08:51 Dose: 10 mg Ondansetron HCl (Zofran Odt) 4 mg PO Q6H PRN PRN Reason: Nausea/Vomiting Ondansetron HCl (Zofran) 4 mg IVP Q6H PRN PRN Reason: Nausea/Vomiting Prednisone (Prednisone) 40 mg PO QAM-[facility] Sertraline HCl (Zoloft) 100 mg PO DAILY [facility] Last Admin: 07/05/17 08:55 Dose: 100 mg
[2017-07-05] MEDS: Sodium Chloride 0.9% 1,000 ML IV SCH (15:38)
[2017-07-06] MEDS: Benzonatate 100 MG CAP PO PRN ×2 (05:49→11:44)
[2017-07-06] MEDS: HumaLOG 300 UNITS/3 ML VIAL SC PRN ×2 (05:53→16:08)
[2017-07-06] MEDS: Mometasone/Formoterol 120 PUFF INHALER INH SCH ×2 (06:48→18:15)
[2017-07-06] MEDS: guaiFENesin ER 600 MG TAB PO SCH ×2 (08:20→20:13)
[2017-07-06] MEDS: Montelukast Sodium 10 mg Tablet PO SCH ×2 (08:20)
[2017-07-06] MEDS: metFORMIN 500 MG TAB PO SCH ×2 (08:20→16:07)
[2017-07-06] MEDS: Enoxaparin Sodium 40 MG/0.4 ML SYRINGE SC SCH (08:20)
[2017-07-06] MEDS: predniSONE 20 MG TAB PO SCH (08:21)
[2017-07-06] MEDS: ALPRAZolam 0.25 MG TAB PO SCH ×3 (08:21→20:13)
[2017-07-06] MEDS: Sodium Chloride 0.9% 1,000 ML IV SCH (08:24)
[2017-07-06] MEDS: Famotidine 20 MG TAB PO SCH ×2 (08:24→20:13)
--- NOTE | 2017-07-06 09:05 | PRG ---
DATE OF SERVICE: 07/06/2017 This morning he is doing somewhat better. He said he had a coughing spell with a choking sensation. Sputum is clear. PHYSICAL EXAMINATION: VITAL SIGNS: His sats are 95% on 2 liters, temperature 98, pulse 85, blood pressure 145/87. CHEST: Chest revealed occasional wheeze. CARDIAC: Normal S1, S2. No gallops. ABDOMEN: Soft, no masses. IMPRESSION: 1. Atrial fibrillation. 2. Bronchitis. PLAN: Neb treatments, Symbicort, prednisone. PT and supportive care. Hopefully, he can be discharged home in the next 24-48 hours.
--- NOTE | 2017-07-06 13:28 | PDOC.PN ---
- Subjective Encounter Start Date: 07/06/17 Encounter Start Time: 10:00 Subjective: breathing better, no new complaints - Objective Resuscitation Status: Resuscitation Status FULL:Full Resuscitation MAR Reviewed: Yes Vital Signs & Weight: Vital Signs (12 hours) Temp Pulse Resp BP Pulse Ox 07/06/17 11:52 97.6 F 90 16 169/96 H 96 07/06/17 10:40 85 16 07/06/17 08:00 98.2 F 85 14 07/06/17 07:28 98.2 F 85 14 145/87 H 95 07/06/17 06:49 100 16 07/06/17 06:19 20 94 L 07/06/17 05:54 98.3 F 90 20 155/91 H 94 L 07/06/17 03:04 86 16 94 L Weight Weight 252 lb 8 oz I&O: 07/05/17 07/06/17 07/07/17 06:59 06:59 06:59 Intake Total 3000 2535 Output Total 1675 550 Balance 1325 1985 Result Diagrams: 07/03/17 04:00 07/03/17 04:00 Additional Labs: Accuchecks 07/06/17 07/06/17 07/05/17 11:05 05:54 20:40 POC Glucose 158 H 248 H 173 H 07/05/17 15:37 POC Glucose 143 H Phys Exam - Physical Examination HEENT: PERRLA, moist MMs Neck: no JVD, supple Respiratory: no wheezing, no rales rhonchi+ Cardiovascular: RRR, no significant murmur Gastrointestinal: soft, non-tender, no distention, positive bowel sounds Musculoskeletal: no edema, pulses present Neurological: non-focal, moves all 4 limbs Psychiatric: A&O x 3 Dx/Plan (1) Acute and chronic respiratory failure with hypoxia Code(s): J96.21 - ACUTE AND CHRONIC RESPIRATORY FAILURE WITH HYPOXIA Status: Resolved (2) Acute exacerbation of chronic obstructive pulmonary disease Code(s): J44.1 - CHRONIC OBSTRUCTIVE PULMONARY DISEASE W (ACUTE) EXACERBATION Status: Acute (3) Anxiety Code(s): F41.9 - ANXIETY DISORDER, UNSPECIFIED Status: Chronic Comment: Continue home meds. (4) DM2 (diabetes mellitus, type 2) Status: Chronic Qualifiers: Diabetes mellitus snf insulin use: without oysterman use Diabetes mellitus complication status: with unspecified complications Qualified Code(s) : E11.8 - Type 2 diabetes mellitus with unspecified complications Comment: Controlled. (5) REMINGTON (obstructive sleep apnea) Code(s): G47.33 - OBSTRUCTIVE SLEEP APNEA (ADULT) (PEDIATRIC) Status: Chronic Comment: on home BiPAP. Will continue. (6) Obesity Code(s): E66.9 - OBESITY, UNSPECIFIED Status: Chronic Qualifiers: Body mass index: BMI 37.0-37.9 - Plan is on levaquin, nebs and prednisone -: to amb as tolerated -: chronic bipap at night for sleep apnea -: dc plan inn 24hrs -: to amb as tolerated * . Review of Systems - Medications/Allergies Allergies/Adverse Reactions: Allergies Allergy/AdvReac Type Severity Reaction Status Date / Time venom-honey bee Allergy Severe Anaphylaxis Verified 06/16/14 03:22 [bee venom (honey bee)] No Known Drug Allergies Allergy Verified 09/25/14 10:39 Medications: Current Medications Acetaminophen (Tylenol) 650 mg PO Q4H PRN PRN Reason: Headache/Fever or Pain Last Admin: 07/03/17 20:20 Dose: 650 mg Al Hydroxide/Mg Hydroxide (Maalox) 30 ml PO Q6H PRN PRN Reason: Heartburn or Indigestion Albuterol/Ipratropium (Duoneb) 3 ml NEB Q4H PRN PRN Reason: SOB &/or Wheezing Last Admin: 07/04/17 03:39 Dose: 3 ml Albuterol/Ipratropium (Duoneb) 3 ml NEB [id number] [facility] Last Admin: 07/06/17 10:40 Dose: 3 ml Alprazolam (Xanax) 0.25 mg PO TID [facility] Last Admin: 07/06/17 08:21 Dose: 0.25 mg Benzonatate (Tessalon) 100 mg PO Q4H PRN PRN Reason: Cough Last Admin: 07/06/17 11:44 Dose: 100 mg Dextrose/Water (Dextrose 50%) 25 gm SLOW IVP PRN PRN PRN Reason: Hypoglycemia Enoxaparin Sodium (Lovenox) 40 mg SC 0900 [facility] Last Admin: 07/06/17 08:20 Dose: 40 mg Famotidine (Pepcid) 20 mg PO BID [facility] Last Admin: 07/06/17 08:24 Dose: Not Given Glucagon (Glucagon) 1 mg IM PRN PRN PRN Reason: Hypoglycemia Guaifenesin (Mucinex) 1,200 mg PO Q12HR [facility] Last Admin: 07/06/17 08:20 Dose: 1,200 mg Hydralazine HCl (Apresoline) 10 mg SLOW IVP Q4H PRN PRN Reason: Systolic BP > 180 Dextrose/Water (D5w) 1,000 mls @ 0 mls/hr IV .Q0M PRN; As Directed PRN Reason: Hypoglycemia Insulin Human Lispro (Humalog) 0 units SC .MODERATE SLIDING SC PRN PRN Reason: Moderate Correctional Scale Last Admin: 07/06/17 05:53 Dose: 4 unit Insulin Human Lispro (Humalog) 0 units SC .BEDTIME SLIDING SC PRN PRN Reason: Bedtime Correctional Scale Last Admin: 07/04/17 20:13 Dose: 3 unit Levofloxacin (Levaquin) 500 mg PO 0600 [facility] Last Admin: 07/06/17 05:50 Dose: 500 mg Lorazepam (Ativan) 0.5 mg PO Q4H PRN PRN Reason: Anxiety/Agitation Magnesium Hydroxide (Milk Of Magnesium) 30 ml PO DAILYPRN PRN PRN Reason: Constipation Metformin HCl (Glucophage) 500 mg PO BID-WM [facility] Last Admin: 07/06/17 08:20 Dose: 500 mg Mometasone Furoate/Formoterol Fumar (Dulera 200 Mcg/5 Mcg Inhaler) 2 puff INH BID-RT [facility] Last Admin: 07/06/17 06:48 Dose: 2 puff Montelukast Sodium (Singulair) 10 mg PO DAILY [facility] Last Admin: 07/06/17 08:20 Dose: 10 mg Ondansetron HCl (Zofran Odt) 4 mg PO Q6H PRN PRN Reason: Nausea/Vomiting Ondansetron HCl (Zofran) 4 mg IVP Q6H PRN PRN Reason: Nausea/Vomiting Prednisone (Prednisone) 40 mg PO QAM-WM [facility] Last Admin: 07/06/17 08:21 Dose: 40 mg Sertraline HCl (Zoloft) 100 mg PO DAILY [facility] Last Admin: 07/06/17 08:21 Dose: 100 mg
[2017-07-07] MEDS: HumaLOG 300 UNITS/3 ML VIAL SC PRN ×3 (05:12→16:29)
[2017-07-07] MEDS: Mometasone/Formoterol 120 PUFF INHALER INH SCH (06:18)
[2017-07-07] MEDS: metFORMIN 500 MG TAB PO SCH ×2 (08:08→16:27)
[2017-07-07] MEDS: predniSONE 20 MG TAB PO SCH (08:09)
[2017-07-07] MEDS: Enoxaparin Sodium 40 MG/0.4 ML SYRINGE SC SCH (08:10)
[2017-07-07] MEDS: ALPRAZolam 0.25 MG TAB PO SCH ×2 (08:10→16:27)
[2017-07-07] MEDS: Famotidine 20 MG TAB PO SCH (08:11)
[2017-07-07] MEDS: guaiFENesin ER 600 MG TAB PO SCH (08:12)
[2017-07-07] MEDS: Montelukast Sodium 10 mg Tablet PO SCH ×2 (08:12)
--- NOTE | 2017-07-07 12:43 | PRG ---
DATE OF SERVICE: 07/07/2017 SUBJECTIVE: The patient is doing much better, less shortness of breath, less cough. OBJECTIVE: VITAL SIGNS: Sats are 97% on room air, respiration 16, temperature 97, blood pressure 110/71. CHEST: Chest reveals decreased breath sounds, no wheezing. CARDIAC: Normal S1, S2. No gallops. ABDOMEN: Soft, no mass. IMPRESSION: 1. Chronic obstructive pulmonary disease with exacerbation, bronchitis. 2. Optic neuritis. PLAN: He can be discharged home. He tells me, he is taking a baseline prednisone 10 mg a day from h is neuroophthalmologist in [place]. I will taper to baseline 10 mg over a week. Otherwise, follow up with his primary utility tender carding at the [facility].
[2017-07-07 16:29] VITALS: BP 168/88; TEMP 98.4
--- NOTE | 2017-07-07 17:55 | PDOC.PN ---
- Subjective Encounter Start Date: 07/07/17 Encounter Start Time: 17:53 Mr. Barrera was seen today in follow-up. He does not have any complaints. - Objective Resuscitation Status: Resuscitation Status FULL:Full Resuscitation MAR Reviewed: Yes Vital Signs & Weight: Vital Signs (12 hours) Temp Pulse Resp BP Pulse Ox 07/07/17 16:27 98.4 F 92 20 168/88 H 97 07/07/17 11:06 98.2 F 93 20 143/82 H 98 07/07/17 10:09 61 16 96 07/07/17 08:00 98.1 F 61 18 96 07/07/17 06:16 86 16 97 Weight Weight 252 lb 8 oz I&O: 07/06/17 07/07/17 07/08/17 06:59 06:59 06:59 Intake Total 2535 1550 Output Total 550 Balance 1985 1550 Result Diagrams: 07/03/17 04:00 07/03/17 04:00 Additional Labs: Accuchecks 07/07/17 07/07/17 07/07/17 16:29 11:10 05:12 POC Glucose 155 H 167 H 224 H 07/06/17 19:27 POC Glucose 233 H Phys Exam - Physical Examination HEENT: PERRLA Respiratory: no wheezing, no rales, no rhonchi, clear to auscultation bilateral Cardiovascular: RRR, no significant murmur, no rub Gastrointestinal: soft, non-tender, positive bowel sounds Musculoskeletal: no edema Dx/Plan (1) Acute respiratory failure with hypoxia Code(s): J96.01 - ACUTE RESPIRATORY FAILURE WITH HYPOXIA Status: Acute (2) COPD exacerbation Code(s): J44.1 - CHRONIC OBSTRUCTIVE PULMONARY DISEASE W (ACUTE) EXACERBATION Status: Acute (3) DM2 (diabetes mellitus, type 2) Status: Chronic Qualifiers: Diabetes mellitus mcc insulin use: without mcc use Diabetes mellitus complication status: with unspecified complications Qualified Code(s) : E11.8 - Type 2 diabetes mellitus with unspecified complications Comment: Controlled. (4) REMINGTON (obstructive sleep apnea) Code(s): G47.33 - OBSTRUCTIVE SLEEP APNEA (ADULT) (PEDIATRIC) Status: Chronic Comment: on home BiPAP. Will continue. (5) Obesity Code(s): E66.9 - OBESITY, UNSPECIFIED Status: Chronic Qualifiers: Body mass index: BMI 37.0-37.9 - Plan * COPD exacerbation- resolved * Stable for discharge home.
--- NOTE | 2017-07-08 00:32 | DIS ---
DATE OF ADMISSION: 07/02/2017 DATE OF DISCHARGE: 07/07/2017 PRIMARY CARE PHYSICIAN: Brody Fortune M.D. DISCHARGE DISPOSITION: Home. PRIMARY DISCHARGE DIAGNOSES: 1. Chronic obstructive pulmonary disease exacerbation. 2. Diabetes mellitus, type 2. 3. Obstructive sleep apnea. 4. Chronic anxiety. DISCHARGE MEDICATIONS: Include Levaquin 500 mg daily as well as prednisone 10 mg daily. Continue Sp iriva 18 mcg inhaled daily, Zoloft 100 mg daily, naltrexone/bupropion one tablet q. day, Singulair 10 mg daily, metformin 500 mg twice a day, Nucala 100 mg subcutaneous every month, meclizine 25 mg t.i. d., Levaquin 500 mg for 3 days daily, albuterol nebs p.r.n. each naris daily, Symbicort 160/4.5 two p uffs twice a day, and Dexilant 60 mg daily. CODE STATUS: FULL CODE. ALLERGIES: VENOM BEE HONEY. HOSPITAL COURSE: Mr. Barrera is a pleasant 61-year-old gentleman that presented to the emergency room with complaints of shortness of breath. He was also having a productive cough. He was admitte d for a COPD exacerbation with acute on chronic respiratory failure with hypoxemia. He improved duri ng the course of his admission with IV antibiotics, IV steroids, nebulizer treatments and long-acting beta agonist. He was able to be transitioned to all oral medications and was subsequently discharge d home and need close follow up with Dr. Brody Fortune in 1 week.
== END 2017-07-07 19:19 | disposition home or self-care (01) | DRG 189 ==
LOC: ERS 22:15 → IMCU/EMU 23:30 → T4-A 07-05 13:42
PROVIDERS: ADMIT Internal Medicine; ATTEND Internal Medicine
DX: J96.21 Acute and chronic respiratory failure with hypoxia (principal); I48.91 Unspecified atrial fibrillation; H46.9 Unspecified optic neuritis; J44.1 Chronic obstructive pulmonary disease with (acute) exacerbation; E11.9 Type 2 diabetes mellitus without complications; G47.33 Obstructive sleep apnea (adult) (pediatric); E66.9 Obesity, unspecified; Z68.37 Body mass index [BMI] 37.0-37.9, adult; F41.9 Anxiety disorder, unspecified; Z87.01 Personal history of pneumonia (recurrent); Z87.891 Personal history of nicotine dependence; I10 Essential (primary) hypertension
CPT/HCPCS: 36415; 36416; 71045; 80048; 80053; 82553; 82805; 84484; 85025; 93005; 94640; 94660; 96374; J1650; J2930; J7506; J7611; J7620

== ENCOUNTER 2017-10-06 08:04 | Outpatient (CLI) | payer OTHER | END 2017-10-06 08:05 | disposition home or self-care (01) | LOC: BICMAMMO 08:04 | PROVIDERS: ATTEND Allergy & Immunology | DX: Z13.820 Encounter for screening for osteoporosis (principal); M85.89 Other specified disorders of bone density and structure, multiple sites | CPT/HCPCS: 77080 ==

== ENCOUNTER 2018-02-22 03:10 | Inpatient (IN) | payer OTHER ==
[2018-02-22] MEDS ORDERED: Magnesium 2 GM/50 ML BAG (IN WATER) ONE (03:26)
[2018-02-22] MEDS ORDERED: methylPREDNISolone Sod Succ/PF 125 MG/2 ML VIAL ONE (03:26)
[2018-02-22 03:30] LABS: Actual Bicarbonate (HCO3a) 22.4 mEq/L (22-28); Analyzer IN Cardio ER; Base Excess (BEa) -2.4 mEq/L (-2.0 to +3.0); CO2 Tension 38.9 mmHg (35.0-45.0); Calcium, Ionized 1.17 mmol/L (1.12-1.30); Carboxyhemoglobin (COHb) 0.5 gm% (0.0-3.0); Hemoglobin (Hb) 16.8 g/dL (14.0-18.0); O2 Tension (PaO2) 83.4 mmHg (> 80.0); Potassium - ABG Lab 4.43 mmol/L (3.70-5.30); pH, Arterial 7.38 (7.35-7.45)
[2018-02-22 03:31] LABS: ALV-art Gradient 96.135 (0-20); Puncture Site RRA
[2018-02-22 03:37] LABS: #Basophils 0.1 thou/uL (0.0-0.2); #Eosinphils 0.5 thou/uL (0.0-0.7); #Lymphocytes 1.3 thou/uL (1.20-3.40); #Monocytes 0.8 thou/uL (0.11-0.59); #Neutrophils 8.6 thou/uL (1.40-6.50); %Basophils 0.7 % (0.0-1.0); %Eosinophils 4.4 % (0.0-10.0); %Lymphocytes 11.5 % (21.0-51.0); %Neutrophils 76.4 % (42.0-75.0); Hemoglobin 16.4 g/dL (14.0-18.0); Mean Corpuscular Hemoglobin 32.2 pg (27.0-31.0); Mean Corpuscular Volume 92.1 fL (78.0-98.0); Mean Platelet Volume 6.8 fL (7.4-10.4); Platelet Count 304 thou/uL (130-400); Red Blood Cell (RBC) Count 5.11 mill/uL (4.70-6.10); White Blood Cell (WBC) Count 11.2 thou/uL (4.8-10.8)
[2018-02-22 03:59] LABS: ALT (SGPT) 27 U/L (8-55); AST (SGOT) 22 U/L (5-34); Albumin 4.2 g/dL (3.4-4.8); Alkaline Phosphatase 132 U/L (40-150); Anion Gap 13 mmol/L (10-20); BUN (Urea Nitrogen) 14 mg/dL (8.4-25.7); Bilirubin, Total 1.3 mg/dL (0.2-1.2); Calc. Creatinine Clearance 0 mL/min (70-130); Calcium 9.7 mg/dL (7.8-10.44); Carbon Dioxide 22 mmol/L (23-31); Chloride 104 mmol/L (98-107); Estimated GFR-MDRD 80; Globulin 3.3 g/dL (2.4-3.5); Glucose 142 mg/dL (80-115); Lipase 25 U/L (8-78); Magnesium 2.2 mg/dL (1.6-2.6); Potassium 4.4 mmol/L (3.5-5.1); Protein, Total 7.5 g/dL (5.8-8.1); Sodium 135 mmol/L (136-145)
[2018-02-22 04:02] LABS: CKMB 3.5 ng/mL (0-6.6); Troponin I Less than 0.010 ng/mL (< 0.028)
[2018-02-22] MEDS ORDERED: Albuterol Sulfate 2.5 mg/3 ml Neb ONE ×2 (04:30)
[2018-02-22] MEDS ORDERED: Acetaminophen 325 MG TAB PO PRN (05:07)
[2018-02-22] MEDS ORDERED: Ondansetron ODT 4 MG TAB PO PRN (05:07)
[2018-02-22] MEDS ORDERED: Zolpidem Tartrate 5 MG TAB PO PRN (05:07)
[2018-02-22] MEDS ORDERED: Senokot S 8.6-50 MG TAB PO PRN (05:07)
[2018-02-22] MEDS ORDERED: Bisacodyl 5 MG TAB PO PRN (05:07)
[2018-02-22] MEDS ORDERED: Dextrose 50% Abboject 50 ML SYRINGE SLOW IVP PRN (05:11)
[2018-02-22] MEDS ORDERED: Dextrose 5% in Water 1,000 ML IV PRN (05:11)
[2018-02-22] MEDS ORDERED: Insulin Regular 300 UNITS/3 ML VIAL SC PRN (05:11)
[2018-02-22] MEDS ORDERED: Non-Formulary Item 1 EACH (Budesonide-Formoterol [Symbicort 160-4.5] 2 PUFF) INH SCH (06:30)
[2018-02-22] MEDS ORDERED: Spiriva 18 MCG CAP (Box of 5 Caps) INH SCH (07:00)
[2018-02-22 07:21] LABS: Bilirubin Negative (Negative); Blood, Urine Trace (Negative); Clarity CLEAR (Clear); Glucose, Urine (Dipstick) Negative (Negative); Leukocyte Negative (Negative); Nitrite Negative (Negative); Protein, Urine (Dipstick) Negative (Neg-Trace); Specific Gravity, Urine 1.012 (1.002-1.036); Urobilinogen 0.2 mg/dL (0.2-1.0); pH, Urine 5.5 (5.0-9.0)
[2018-02-22 07:24] LABS: Bacteria/HPF None Seen HPF (None Seen); Hyaline Casts/LPF 0-3 HYALINE CAST LPF (0-3 Hyaline); Pathc Cast-AUWi Flag 0.72 (0-2.49); RBC/HPF 0-3 HPF (0-3); Squamous Epithelial None Seen HPF (0-3); WBC/HPF 0-3 HPF (0-3)
[2018-02-22] MEDS ORDERED: predniSONE 5 MG TAB PO SCH (08:00)
[2018-02-22] MEDS ORDERED: Insulin Regular 300 UNITS/3 ML VIAL ONE (08:06)
--- NOTE | 2018-02-22 08:34 | RAD ---
SINGLE VIEW CHEST: Date: 02/22/18 COMPARISON: 07/02/17. HISTORY: Shortness of breath. FINDINGS: Single view of the chest shows a normal sized cardiomediastinal silhouette. There is no evidence of c onsolidation, mass, or pleural effusion. The bones are unremarkable. IMPRESSION: No evidence of acute cardiopulmonary disease. POS: CET
[2018-02-22] MEDS ORDERED: Enoxaparin Sodium 40 MG/0.4 ML SYRINGE ONE (08:46)
[2018-02-22] MEDS ORDERED: Famotidine 20 MG TAB ONE (08:48)
[2018-02-22] MEDS: Mometasone/Formoterol 120 PUFF INHALER INH SCH ×2 (09:19→19:29)
[2018-02-22] MEDS ORDERED: Magnesium 2 GM/50 ML 2 GM in Premix Bag 1 BAG IVPB SCH (09:45)
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
[2018-02-22] MEDS: Enoxaparin Sodium 40 MG/0.4 ML SYRINGE SC SCH (13:49)
[2018-02-22] MEDS: Famotidine 20 MG TAB PO SCH ×2 (13:49→21:06)
[2018-02-22] MEDS: guaiFENesin/DM ER PO SCH ×2 (13:50→21:06)
[2018-02-22] MEDS: Meclizine HCl 25 MG TAB PO SCH ×3 (13:50→21:06)
[2018-02-22] MEDS: Famotidine/PF 20 mg/2ml Vial SLOW IVP SCH ×2 (13:50→21:06)
[2018-02-22 13:54] VITALS: BMI 36.9
[2018-02-22] MEDS: Insulin Regular 300 UNITS/3 ML VIAL SC PRN (17:33)
[2018-02-23 05:37] LABS: #Lymphocytes 0.5 thou/uL (1.20-3.40); #Monocytes 0.6 thou/uL (0.11-0.59); #Neutrophils 11.7 thou/uL (1.40-6.50); %Basophils 0.1 % (0.0-1.0); %Eosinophils 0.2 % (0.0-10.0); %Lymphocytes 4.2 % (21.0-51.0); %Monocytes 4.6 % (0.0-10.0); %Neutrophils 90.9 % (42.0-75.0); Hemoglobin 15.6 g/dL (14.0-18.0); Mean Corpuscular HGB CONC 34.2 g/dL (32.0-36.0); Mean Corpuscular Hemoglobin 31.9 pg (27.0-31.0); Mean Corpuscular Volume 93.4 fL (78.0-98.0); Mean Platelet Volume 6.8 fL (7.4-10.4); Platelet Count 314 thou/uL (130-400); RBC Distribution Width 12.2 % (11.5-14.5); White Blood Cell (WBC) Count 12.9 thou/uL (4.8-10.8)
[2018-02-23 05:57] LABS: Anion Gap 14 mmol/L (10-20); BUN (Urea Nitrogen) 19 mg/dL (8.4-25.7); Calc. Creatinine Clearance 118 mL/min (70-130); Calcium 9.8 mg/dL (7.8-10.44); Carbon Dioxide 23 mmol/L (23-31); Chloride 105 mmol/L (98-107); Estimated GFR-MDRD 71; Glucose 191 mg/dL (80-115); Magnesium 2.5 mg/dL (1.6-2.6); Potassium 4.8 mmol/L (3.5-5.1); Sodium 137 mmol/L (136-145)
[2018-02-23] MEDS: Mometasone/Formoterol 120 PUFF INHALER INH SCH ×2 (07:13→21:55)
[2018-02-23] MEDS: Famotidine 20 MG TAB PO SCH ×2 (08:20→20:37)
[2018-02-23] MEDS: Famotidine/PF 20 mg/2ml Vial SLOW IVP SCH (08:20)
[2018-02-23] MEDS: Saccharomyces boulardii 250 MG CAP PO SCH (08:20)
[2018-02-23] MEDS: Meclizine HCl 25 MG TAB PO SCH ×3 (08:20→20:37)
[2018-02-23] MEDS: guaiFENesin/DM ER PO SCH ×2 (08:20→20:37)
[2018-02-23] MEDS: Enoxaparin Sodium 40 MG/0.4 ML SYRINGE SC SCH (08:21)
[2018-02-23] MEDS: Insulin Regular 300 UNITS/3 ML VIAL SC PRN ×2 (08:23→11:42)
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
--- NOTE | 2018-02-23 11:16 | PRG ---
DATE OF SERVICE: 02/23/2018 SUBJECTIVE: This morning, he is much better. Less shortness of breath, less cough. OBJECTIVE: VITAL SIGNS: Sats are96%_, temperature is 98, and blood pressure 118/56. CHEST: Decreased breath sounds. No wheezing. CARDIAC: Normal S1 and S2. No gallops or murmurs. LABORATORY DATA: White count 12,000. Lytes are normal. IMPRESSION: Chronic obstructive pulmonary disease exacerbation, bronchitis, and sleep apnea. He is much improved. Switch over to oral antibiotics and steroids. Job ID: [id number] [facility]
--- NOTE | 2018-02-23 13:32 | PDOC.PN ---
- Subjective Encounter Start Date: 02/23/18 Encounter Start Time: 08:45 Patient seen and examined for Resp failure. Feeling somewhat better. Cough with some production. No other complaints. No overnight events - Objective Resuscitation Status - Order Detail: 02/22/18 05:07 Resuscitation Status Routine Resuscitation Status: FULL: Full Resuscitation MAR Reviewed: Yes Vital Signs & Weight: Vital Signs (12 hours) Temp Pulse Resp BP Pulse Ox 02/23/18 11:40 97.9 F 94 20 122/68 98 02/23/18 11:13 80 16 02/23/18 08:20 95 02/23/18 08:18 98.3 F 95 20 118/56 L 95 02/23/18 07:17 96 02/23/18 07:13 63 16 96 02/23/18 04:25 97.3 F L 68 17 144/65 H 94 L 02/23/18 02:23 90 18 98 Weight Weight 250 lb 4.8 oz I&O: 02/22/18 02/23/18 02/24/18 06:59 06:59 06:59 Intake Total 600 Output Total 550 Balance 50 Result Diagrams: 02/23/18 05:12 02/23/18 05:12 Additional Labs: Accuchecks 02/23/18 02/23/18 02/22/18 10:49 05:40 21:19 POC Glucose 204 H 189 H 206 H 02/22/18 16:39 POC Glucose 171 H EKG Reviewed by me: Yes (Tele SR) Phys Exam - Physical Examination Constitutional: NAD Respiratory: no rales, wheezing present Scat rhonchi Cardiovascular: RRR, no rub Gastrointestinal: soft, non-tender, no distention, positive bowel sounds Musculoskeletal: no edema Neurological: moves all 4 limbs Dx/Plan (1) Acute respiratory failure with hypoxia Code(s): J96.01 - ACUTE RESPIRATORY FAILURE WITH HYPOXIA Status: Acute (2) COPD exacerbation Code(s): J44.1 - CHRONIC OBSTRUCTIVE PULMONARY DISEASE W (ACUTE) EXACERBATION Status: Acute (3) Anxiety Code(s): F41.9 - ANXIETY DISORDER, UNSPECIFIED Status: Chronic Comment: (4) DM2 (diabetes mellitus, type 2) Status: Chronic Qualifiers: Diabetes mellitus senior care insulin use: without termite treater use Chronic kidney disease stage: stage 2 (mild) (5) REMINGTON (obstructive sleep apnea) Code(s): G47.33 - OBSTRUCTIVE SLEEP APNEA (ADULT) (PEDIATRIC) Status: Chronic Comment: on home BiPAP (6) Obesity (BMI 30-39.9) Code(s): E66.9 - OBESITY, UNSPECIFIED Status: Chronic - Plan DVT proph w/lovenox, DVT proph w/SCDs * Cont Steroids/Atbx * Cont Nebs * Resume Singuilar * Cont other meds as below * Transfer to Medical Microbiology 02/22/18 03:20 Nasal swab Influenza Types A,B Direct EIA - Final 02/22/18 05:50 Urine voided Urine Culture - Preliminary NO GROWTH AT 24 HOURS 02/22/18 03:42 Venous blood - Right Hand Blood Culture - Preliminary Specimen has been received and culture in progress. No Growth to date. 02/22/18 03:34 Venous blood - Left Arm Blood Culture - Preliminary Specimen has been received and culture in progress. No Growth to date. Review of Systems - Review of Systems Constitutional: negative: fever, chills, sweats, weakness, malaise, other Gastrointestinal: negative: Nausea, Vomiting, Abdominal Pain, Diarrhea, Constipation, Melena, Hematochezia, Other - Medications/Allergies Allergies/Adverse Reactions: Allergies Allergy/AdvReac Type Severity Reaction Status Date / Time venom-honey bee Allergy Severe Anaphylaxis Verified 06/16/14 03:22 [bee venom (honey bee)] No Known Drug Allergies Allergy Verified 09/25/14 10:39 Medications: Current Medications Acetaminophen (Tylenol) 650 mg PO Q4H PRN PRN Reason: Headache/Fever/Mild Pain (1-3) Albuterol/Ipratropium (Duoneb) 3 ml NEB [id number] [facility] Last Admin: 02/23/18 11:13 Dose: 3 ml Bisacodyl (Dulcolax) 10 mg PO DAILYPRN PRN PRN Reason: Constipation Dextrose/Water (Dextrose 50%) 25 gm SLOW IVP PRN PRN PRN Reason: Hypoglycemia Enoxaparin Sodium (Lovenox) 40 mg SC 0900 [facility] Last Admin: 02/23/18 08:21 Dose: 40 mg Famotidine (Pepcid) 20 mg SLOW IVP Q12HR [facility] Last Admin: 02/23/18 08:20 Dose: Not Given Famotidine (Pepcid) 20 mg PO BID [facility] Last Admin: 02/23/18 08:20 Dose: 20 mg Glucagon (Glucagon) 1 mg IM PRN PRN PRN Reason: Hypoglycemia Guaifenesin/Dextromethorphan (Mucinex Dm) 1 tab PO BID [facility] Last Admin: 02/23/18 08:20 Dose: 1 tab Dextrose/Water (D5w) 1,000 mls @ 0 mls/hr IV .Q0M PRN PRN Reason: Hypoglycemia Insulin Human Regular (Humulin R) 0 units SC .MILD SLIDING SCALE PRN PRN Reason: Mild Correctional Scale Last Admin: 02/23/18 11:42 Dose: 3 units Insulin Human Regular (Humulin R) 0 units SC .BEDTIME SLIDING SC PRN PRN Reason: Bedtime Correctional Scale Last Admin: 02/22/18 21:21 Dose: 2 unit Levofloxacin (Levaquin) 500 mg PO 0600 [facility] Meclizine HCl (Antivert) 25 mg PO TID [facility] Last Admin: 02/23/18 08:20 Dose: 25 mg Miscellaneous Medication (Pharmacy To Dose) 1 each IVPB PRN PRN PRN Reason: Pharmacy to dose Mometasone Furoate/Formoterol Fumar (Dulera 200 Mcg/5 Mcg Inhaler) 2 puff INH BID-RT [facility] Last Admin: 02/23/18 07:13 Dose: 2 puff Ondansetron HCl (Zofran Odt) 4 mg PO Q6H PRN PRN Reason: Nausea/Vomiting Prednisone (Prednisone) 40 mg PO [facility] Saccharomyces Boulardii (Florastor) 250 mg PO DAILY [facility] Last Admin: 02/23/18 08:20 Dose: 250 mg Senna/Docusate Sodium (Senokot S) 2 tab PO BID PRN PRN Reason: Constipation Sertraline HCl (Zoloft) 100 mg PO DAILY [facility] Last Admin: 02/23/18 08:21 Dose: 100 mg Sodium Chloride (Flush - Normal Saline) 10 ml IVF Q12HR PRN PRN Reason: Saline Flush Sodium Chloride (Flush - Normal Saline) 10 ml IVF PRN PRN PRN Reason: Saline Flush Last Admin: 02/23/18 05:53 Dose: 10 ml Zolpidem Tartrate (Ambien) 5 mg PO HSPRN PRN PRN Reason: Insomnia
[2018-02-23] MEDS ORDERED: Montelukast Sodium 10 mg Tablet PO SCH (21:00)
[2018-02-24] MEDS: Insulin Regular 300 UNITS/3 ML VIAL SC PRN ×2 (05:58→13:02)
[2018-02-24] MEDS: Mometasone/Formoterol 120 PUFF INHALER INH SCH (07:17)
[2018-02-24] MEDS ORDERED: predniSONE 20 MG TAB PO SCH (08:00)
[2018-02-24] MEDS: Famotidine 20 MG TAB PO SCH (08:41)
[2018-02-24] MEDS: Meclizine HCl 25 MG TAB PO SCH (08:41)
[2018-02-24] MEDS: guaiFENesin/DM ER PO SCH (08:42)
[2018-02-24] MEDS: Saccharomyces boulardii 250 MG CAP PO SCH (08:42)
--- NOTE | 2018-02-24 11:13 | PRG ---
DATE OF SERVICE: 02/24/2018 SUBJECTIVE: This morning, he still had significant right hip pain, in the process of trying to refer him to Pain Management. OBJECTIVE: VITAL SIGNS: Sats are 95 on room air, temperature 97, pulse 82, respiratory rate 12, blood pressure 107/75. CHEST: No wheezing or crackles. CANCELED DICTATION. Job ID: [id number]
--- NOTE | 2018-02-24 11:35 | PRG ---
DATE OF SERVICE: 02/24/2018 SUBJECTIVE: Mr. Barrera doing well this morning, less shortness of breath, less cough. OBJECTIVE: VITAL SIGNS: Sats are 98% room air, temperature 97,resp 20, [id number] pressure 106/75. CHEST: Minimal rhonchi. CARDIAC: Normal S1, S2. No gallops or masses. IMPRESSION: Chronic obstructive pulmonary disease exacerbation, bronchitis, and sleep apnea. PLAN: He could be discharged home today, to be followed up by his primary care physician. Job ID: [id number] [facility]
[2018-02-24 11:48] VITALS: BP 134/73; TEMP 97.8
--- NOTE | 2018-02-25 13:41 | DIS ---
DATE OF ADMISSION: 02/22/2018 DATE OF DISCHARGE: 02/24/2018 DISCHARGE DISPOSITION: Home. FOLLOWUP: 1. Follow up with primary care physician Dr. Brody Fortune in one week. 2. Follow up with Dr. Pedroza as scheduled. ALLERGIES: THE PATIENT DENIES ANY DRUG ALLERGIES. DISCHARGE MEDICATIONS: 1. Levaquin 500 mg daily for seven days. 2. Prednisone 20 mg daily for one week. The patient was advised to resume 10 mg daily after completing one week prednisone. All other home medications were left unchanged. BRIEF HOSPITAL COURSE: The patient is a 62-year-old male with COPD, obstructive sleep apnea, presented to the emergency room with shortness of breath. His workup was consistent with acute hypoxic respiratory failure. ABGs showed pH of 7.38 with pCO2 of 38.9, pO2 of 83.4 with bicarbonate 22.4 on noninvasive positive-pressure ventilation with 32% of FiO2, pressure of 12/6. He showed good improvement with steroids, antibiotics, and noninvasive positive pressure ventilation. A chest x-ray was negative for infiltrates. He was seen by Pulmonary Critical Care, Dr. Pedroza. He has been cleared by Dr. Pedroza for discharge. FINAL DIAGNOSES: 1. Acute hypoxic respiratory failure. 2. Chronic obstructive pulmonary disease exacerbation. 3. Anxiety. 4. Diabetes mellitus, type 2. 5. Obstructive sleep apnea. 6. Obesity with BMI 37. 7. Chronic kidney disease, stage 2. 8. Mild hyponatremia. PLAN: Plan of care was discussed with the patient in detail, he stated understanding. Job ID: [id number]
--- NOTE | 2018-02-26 13:03 | EKG ---
Test Reason : Blood Pressure : / mmHG Vent. Rate : 094 BPM Atrial Rate : 094 BPM P-R Int : 206 ms QRS Dur : 078 ms QT Int : 338 ms P-R-T Axes : 059 091 033 degrees QTc Int : 422 ms Normal sinus rhythm Rightward axis Borderline ECG Confirmed by AROLDO LAWRENCE ([id number]), electronic news gathering editor BEENA DOWELL ([id number]) on 02/26/2018 1:03:26 PM Referred By: Confirmed By:AROLDO LAWRENCE
== END 2018-02-24 13:57 | disposition home or self-care (01) | DRG 189 ==
LOC: ERS 03:10 → ERHOLD 05:17 → 2NO 13:43 → SURG A 02-23 19:27
PROVIDERS: ADMIT Internal Medicine; ATTEND Internal Medicine
PROC: 5A09357 Assistance with Respiratory Ventilation, Less than 24 Consecutive Hours, Continuous Positive Airway Pressure (ICD-10-PCS; principal; 2018-02-22)
DX: J96.01 Acute respiratory failure with hypoxia (principal); J44.1 Chronic obstructive pulmonary disease with (acute) exacerbation; E87.1 Hypo-osmolality and hyponatremia; E11.22 Type 2 diabetes mellitus with diabetic chronic kidney disease; N18.2 Chronic kidney disease, stage 2 (mild); F41.9 Anxiety disorder, unspecified; G47.33 Obstructive sleep apnea (adult) (pediatric); E66.9 Obesity, unspecified; Z68.37 Body mass index [BMI] 37.0-37.9, adult; H54.40 Blindness, one eye, unspecified eye; Z99.81 Dependence on supplemental oxygen; Z87.891 Personal history of nicotine dependence; Z91.030 Bee allergy status; Z79.84 Long term (current) use of oral hypoglycemic drugs; Z79.52 Long term (current) use of systemic steroids; Z79.899 Other long term (current) drug therapy
CPT/HCPCS: 36415; 36416; 71045; 80048; 80053; 81003; 81015; 82553; 82805; 83690; 83735; 84484; 85025; 87040; 87086; 87804; 93005; 94644; 94660; 96365; 96366; 96367; 96372; 96375; J1650; J1815; J1956; J2920; J2930; J7506; J7611; J7620; S0028

== ENCOUNTER 2018-03-30 07:51 | Inpatient (IN) | payer OTHER ==
[2018-03-30] MEDS ORDERED: Albuterol Sulfate 2.5 mg/3 ml Neb ONE (08:26)
[2018-03-30] MEDS ORDERED: Dexamethasone 4 MG TAB ONE (08:27)
--- NOTE | 2018-03-30 08:30 | RAD ---
SINGLE VIEW OF THE CHEST: Comparison: 02-22-18 History: COPD exacerbation and dyspnea. FINDINGS: Single view of the chest shows a normal sized cardiomediastinal silhouette. There is no evidence of c onsolidation, mass, or pleural effusion. Shrapnel is seen in the left humerus. IMPRESSION: No evidence of acute cardiopulmonary disease. POS: [facility]
[2018-03-30 09:34] LABS: #Basophils 0.1 thou/uL (0.0-0.2); #Eosinphils 0.4 thou/uL (0.0-0.7); #Lymphocytes 1.8 thou/uL (1.20-3.40); #Monocytes 0.6 thou/uL (0.11-0.59); #Neutrophils 5.3 thou/uL (1.40-6.50); %Basophils 0.9 % (0.0-1.0); %Lymphocytes 21.4 % (21.0-51.0); %Monocytes 7.3 % (0.0-10.0); %Neutrophils 65.3 % (42.0-75.0); Hemoglobin 15.3 g/dL (14.0-18.0); Mean Corpuscular HGB CONC 34.7 g/dL (32.0-36.0); Mean Corpuscular Hemoglobin 32.1 pg (27.0-31.0); Mean Corpuscular Volume 92.4 fL (78.0-98.0); Mean Platelet Volume 7.1 fL (7.4-10.4); Platelet Count 244 thou/uL (130-400); RBC Distribution Width 11.9 % (11.5-14.5); Red Blood Cell (RBC) Count 4.78 mill/uL (4.70-6.10); White Blood Cell (WBC) Count 8.2 thou/uL (4.8-10.8)
[2018-03-30 09:46] LABS: ALT (SGPT) 20 U/L (8-55); AST (SGOT) 22 U/L (5-34); Albumin 3.7 g/dL (3.4-4.8); Alkaline Phosphatase 121 U/L (40-150); Anion Gap 16 mmol/L (10-20); BUN (Urea Nitrogen) 16 mg/dL (8.4-25.7); Bilirubin, Total 0.6 mg/dL (0.2-1.2); CK (CPK) 93 U/L (30-200); Calc. Creatinine Clearance 0 mL/min (70-130); Calcium 9.2 mg/dL (7.8-10.44); Carbon Dioxide 20 mmol/L (23-31); Chloride 104 mmol/L (98-107); Estimated GFR-MDRD 70; Globulin 3.4 g/dL (2.4-3.5); Glucose 222 mg/dL (80-115); Protein, Total 7.1 g/dL (5.8-8.1); Sodium 136 mmol/L (136-145)
[2018-03-30] MEDS ORDERED: Acetaminophen 325 MG TAB PO PRN (12:40)
[2018-03-30] MEDS ORDERED: Dextrose 50% Abboject 50 ML SYRINGE SLOW IVP PRN (12:40)
[2018-03-30] MEDS ORDERED: Ondansetron PF 4 MG/2 ML Vial IVP PRN (12:40)
[2018-03-30] MEDS ORDERED: Dextrose 5% in Water 1,000 ML IV PRN (12:40)
[2018-03-30] MEDS ORDERED: HYDROcodone/Acetaminophen 5/325 mg Tablet PO PRN (12:40)
[2018-03-30] MEDS ORDERED: Ondansetron ODT 4 MG TAB PO PRN (12:40)
[2018-03-30] MEDS ORDERED: Insulin Regular 300 UNITS/3 ML VIAL SC PRN (12:40)
[2018-03-30] MEDS ORDERED: Senokot S 8.6-50 MG TAB PO PRN (12:40)
[2018-03-30] MEDS ORDERED: Meclizine HCl 25 MG TAB PO PRN (12:44)
[2018-03-30] MEDS ORDERED: ALPRAZolam 0.25 MG TAB PO PRN (12:46)
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
[2018-03-30] MEDS: Calcium Carbonate + Vit D 1 TAB PO SCH (15:05)
[2018-03-30 15:43] VITALS: BMI 36.1
[2018-03-30] MEDS: Insulin Regular 300 UNITS/3 ML VIAL SC PRN (17:28)
[2018-03-30] MEDS ORDERED: Non-Formulary Item 1 EACH (Budesonide-Formoterol [Symbicort 160-4.5] 2 PUFF) INH SCH (18:30)
[2018-03-30] MEDS: Mometasone/Formoterol 120 PUFF INHALER INH SCH (18:50)
[2018-03-30] MEDS: Fluticasone Propionate Nasal Spray 16 gm Bottle NASAL SCH (20:46)
[2018-03-30] MEDS: metFORMIN 500 MG TAB PO SCH (20:46)
[2018-03-30] MEDS ORDERED: Non-Formulary Item 1 EACH (Dexlansoprazole [Dexilant] 60 MG) PO SCH (21:00)
[2018-03-30] MEDS ORDERED: Fluticasone Propionate Nasal Spray 16 gm Bottle NASAL SCH (21:00)
[2018-03-31] MEDS ORDERED: Spiriva 18 MCG CAP (Box of 5 Caps) INH SCH (07:00)
[2018-03-31] MEDS: Mometasone/Formoterol 120 PUFF INHALER INH SCH ×2 (07:55→18:30)
[2018-03-31] MEDS: Fluticasone Propionate Nasal Spray 16 gm Bottle NASAL SCH ×2 (08:57→20:06)
[2018-03-31] MEDS: Calcium Carbonate + Vit D 1 TAB PO SCH ×2 (08:57→17:05)
[2018-03-31] MEDS: Montelukast Sodium 10 mg Tablet PO SCH (08:57)
[2018-03-31] MEDS: metFORMIN 500 MG TAB PO SCH ×2 (08:57→20:06)
[2018-03-31] MEDS: Saccharomyces boulardii 250 MG CAP PO SCH (08:57)
[2018-03-31] MEDS: Enoxaparin Sodium 40 MG/0.4 ML SYRINGE SC SCH (08:58)
[2018-03-31] MEDS: Insulin Regular 300 UNITS/3 ML VIAL SC PRN ×2 (12:01→17:05)
[2018-03-31] MEDS ORDERED: diphenhydrAMINE 25 MG CAP PO PRN (19:52)
--- NOTE | 2018-03-31 22:39 | PDOC.PN ---
- Subjective Encounter Start Date: 03/31/18 Encounter Start Time: 09:00 Patient seen and examined for COPD flare. Intermittent coughing. SOB improving. No new complaints. No overnight events - Objective Resuscitation Status - Order Detail: 03/30/18 12:40 Resuscitation Status Routine Resuscitation Status: FULL: Full Resuscitation MAR Reviewed: Yes Vital Signs & Weight: Vital Signs (12 hours) Temp Pulse Resp BP Pulse Ox 03/31/18 22:28 96 19 03/31/18 20:00 98.3 F 81 20 127/75 95 03/31/18 15:38 97.7 F 74 14 138/72 95 03/31/18 13:59 91 16 98 03/31/18 11:16 98.1 F 84 16 140/72 94 L 03/31/18 10:44 98 Weight Weight 245 lb I&O: 03/30/18 03/31/18 04/01/18 06:59 06:59 06:59 Intake Total 1020 Balance 1020 Result Diagrams: 03/30/18 08:07 03/30/18 08:07 Additional Labs: Accuchecks 03/31/18 03/31/18 03/31/18 21:11 15:37 11:15 POC Glucose 200 H 203 H 208 H 03/31/18 06:24 POC Glucose 247 H Phys Exam - Physical Examination Constitutional: NAD Respiratory: no rales, wheezing present Cardiovascular: RRR, no rub Gastrointestinal: soft, non-tender, positive bowel sounds Musculoskeletal: no edema Neurological: moves all 4 limbs Dx/Plan - Plan DVT proph w/SCDs 1. Chronic obstructive pulmonary disease exacerbation. 2. Chronic respiratory failure, on home oxygen and chronic steroids. 3. Anxiety. 4. Diabetes mellitus type 2. 5. Obstructive sleep apnea, on BiPAP 07/03. 6. Obesity with a body mass index of 37. 7. Chronic kidney disease stage 2 PLAN: Cont Steroids/Atbx Cont BiPAP HS Cont sliding scale Cont other meds as below DC in 1-2 days if stable Review of Systems - Review of Systems Respiratory: Cough, Shortness of Breath, SOB with Excertion, Wheezing Cardiovascular: negative: chest pain, palpitations, orthopnea, paroxysmal nocturnal dyspnea, edema, light headedness, other Gastrointestinal: negative: Nausea, Vomiting, Abdominal Pain, Diarrhea, Constipation, Melena, Hematochezia, Other - Medications/Allergies Allergies/Adverse Reactions: Allergies Allergy/AdvReac Type Severity Reaction Status Date / Time venom-honey bee Allergy Severe Anaphylaxis Verified 03/30/18 15:38 [bee venom (honey bee)] No Known Drug Allergies Allergy Verified 03/30/18 15:38 Medications: Current Medications Acetaminophen (Tylenol) 650 mg PO Q4H PRN PRN Reason: Headache/Fever/Mild Pain (1-3) Hydrocodone Bitart/Acetaminophen ([place] 5/325) 1 tab PO Q6H PRN PRN Reason: Moderate Pain (4-6) Albuterol/Ipratropium (Duoneb) 3 ml NEB [id number] [facility] Last Admin: 03/31/18 22:28 Dose: 3 ml Albuterol/Ipratropium (Duoneb) 3 ml NEB [id number] PRN PRN Reason: SOB &/or Wheezing Alprazolam (Xanax) 0.25 mg PO BIDPRN PRN PRN Reason: Anxiety Calcium/Vitamin D (Caltrate 600 + Vit D) 1 tab PO BID-WM [facility] Last Admin: 03/31/18 17:05 Dose: 1 tab Dextrose/Water (Dextrose 50%) 25 gm SLOW IVP PRN PRN PRN Reason: Hypoglycemia Diphenhydramine HCl (Benadryl) 25 mg PO Q6H PRN PRN Reason: Itching & Insomnia Enoxaparin Sodium (Lovenox) 40 mg SC 0900 [facility] Last Admin: 03/31/18 08:58 Dose: Not Given Fluticasone Propionate (Flonase Nasal [place]) 0 gm NASAL BID [facility] Last Admin: 03/31/18 20:06 Dose: 1 spr Glucagon (Glucagon) 1 mg IM PRN PRN PRN Reason: Hypoglycemia Levofloxacin 750 mg/ Device 150 mls @ 100 mls/hr IVPB Q24HR [facility] Last Admin: 03/31/18 14:11 Dose: 150 mls Dextrose/Water (D5w) 1,000 mls @ 0 mls/hr IV .Q0M PRN PRN Reason: Hypoglycemia Insulin Human Regular (Humulin R) 0 units SC .MILD SLIDING SCALE PRN PRN Reason: Mild Correctional Scale Last Admin: 03/31/18 17:05 Dose: 3 units Insulin Human Regular (Humulin R) 0 units SC .BEDTIME SLIDING SC PRN PRN Reason: Bedtime Correctional Scale Last Admin: 03/31/18 07:15 Dose: 2 unit Meclizine HCl (Antivert) 25 mg PO TID PRN PRN Reason: vertigo Last Admin: 03/30/18 15:05 Dose: 25 mg Metformin HCl (Glucophage) 500 mg PO BID [facility] Last Admin: 03/31/18 20:06 Dose: 500 mg Methylprednisolone Sodium Succinate (Solu-Medrol) 40 mg IVP 0200,0800,1400, 2000 [facility] Last Admin: 03/31/18 20:05 Dose: 40 mg Mometasone Furoate/Formoterol Fumar (Dulera 200 Mcg/5 Mcg Inhaler) 2 puff INH BID-RT [facility] Last Admin: 03/31/18 18:30 Dose: Not Given Montelukast Sodium (Singulair) 10 mg PO DAILY [facility] Last Admin: 03/31/18 08:57 Dose: 10 mg Ondansetron HCl (Zofran Odt) 4 mg PO Q6H PRN PRN Reason: Nausea/Vomiting Ondansetron HCl (Zofran) 4 mg IVP Q6H PRN PRN Reason: Nausea/Vomiting Pantoprazole Sodium (Protonix) 40 mg PO HS [facility] Last Admin: 03/31/18 20:05 Dose: 40 mg Saccharomyces Boulardii (Florastor) 250 mg PO DAILY [facility] Last Admin: 03/31/18 08:57 Dose: 250 mg Senna/Docusate Sodium (Senokot S) 2 tab PO BID PRN PRN Reason: Constipation Sertraline HCl (Zoloft) 100 mg PO DAILY [facility] Last Admin: 03/31/18 08:57 Dose: 100 mg Sodium Chloride (Flush - Normal Saline) 10 ml IVF PRN PRN PRN Reason: Saline Flush Last Admin: 03/31/18 08:57 Dose: 10 ml
[2018-04-01] MEDS ORDERED: Azithromycin 250 MG TAB PO SCH (08:00)
[2018-04-01] MEDS ORDERED: Cefdinir 300 MG CAP PO SCH (08:00)
[2018-04-01] MEDS: Mometasone/Formoterol 120 PUFF INHALER INH SCH (08:21)
[2018-04-01] MEDS: Montelukast Sodium 10 mg Tablet PO SCH (08:26)
[2018-04-01] MEDS: metFORMIN 500 MG TAB PO SCH (08:26)
[2018-04-01] MEDS: Calcium Carbonate + Vit D 1 TAB PO SCH (08:27)
[2018-04-01] MEDS: Fluticasone Propionate Nasal Spray 16 gm Bottle NASAL SCH (08:27)
[2018-04-01] MEDS: Saccharomyces boulardii 250 MG CAP PO SCH (08:27)
[2018-04-01] MEDS: Enoxaparin Sodium 40 MG/0.4 ML SYRINGE SC SCH (08:27)
[2018-04-01 08:48] VITALS: BP 134/79; TEMP 97.2
[2018-04-01] MEDS ORDERED: predniSONE 20 MG TAB PO SCH (09:00)
--- NOTE | 2018-04-01 12:11 | DIS ---
DATE OF ADMISSION: 03/30/2018 DATE OF DISCHARGE: 04/01/2018 DISCHARGE DISPOSITION: Home. FOLLOWUP: Follow up with primary care physician, Dr. Brody Fortune in 1 week. ALLERGIES: THE PATIENT IS ALLERGIC TO LEVAQUIN. DISCHARGE MEDICATIONS: 1. Azithromycin 250 mg daily for next 5 days. 2. Prednisone 20 mg daily for next 5 days. 3. All other home medications were left unchanged. The patient was seen and examined on the day of discharge. He denies any new complaints. No chest pain, shortness of breath, or palpitations reported. Wheezing has significantly improved. BRIEF HOSPITAL COURSE: The patient is a 62-year-old white male with COPD, chronic respiratory failure, on home oxygen, and obstructive sleep apnea, presented to the hospital with shortness of breath. Please refer to the history and physical dated March 30, 2018, for further details. The patient was admitted to the hospital with a diagnosis of COPD exacerbation. He showed good improvement with IV steroids and antibiotics. Initially, he was started on Levaquin. However, yesterday, the patient developed red streaking around the IV site after Levaquin. For this reason, Levaquin has been discontinued. Shortness of breath and wheezing have significantly improved. He appears stable for discharge. FINAL DIAGNOSES: 1. Chronic obstructive pulmonary disease exacerbation. 2. Chronic respiratory failure, on home oxygen and chronic steroids. 3. Anxiety. 4. Diabetes mellitus, type 2. 5. Obstructive sleep apnea, on BiPAP 07/03 with 3 L O2 bleed. 6. Obesity with a BMI of 37. 7. Chronic kidney disease, stage 2. Plan of care was discussed with the patient in detail. He stated understanding. Job ID: [id number]
== END 2018-04-01 10:10 | disposition home or self-care (01) | DRG 191 ==
LOC: ERS 07:51 → ERHOLD 09:10 → SURG B 14:55
PROVIDERS: ADMIT Internal Medicine; ATTEND Internal Medicine
DX: J44.1 Chronic obstructive pulmonary disease with (acute) exacerbation (principal); J96.10 Chronic respiratory failure, unspecified whether with hypoxia or hypercapnia; G47.33 Obstructive sleep apnea (adult) (pediatric); F41.9 Anxiety disorder, unspecified; N18.2 Chronic kidney disease, stage 2 (mild); E11.22 Type 2 diabetes mellitus with diabetic chronic kidney disease; Z98.890 Other specified postprocedural states; Z68.37 Body mass index [BMI] 37.0-37.9, adult; Z87.891 Personal history of nicotine dependence
CPT/HCPCS: 36416; 71045; 80053; 82550; 83880; 84484; 85025; 94640; 94644; 94660; J1650; J1815; J1956; J2920; J7506; J7611; J7620; J8540

== ENCOUNTER 2018-06-21 09:22 | Emergency (ER) | payer OTHER ==
[2018-06-21 09:48] LABS: #Basophils 0.1 thou/uL (0.0-0.2); #Eosinphils 0.5 thou/uL (0.0-0.7); #Lymphocytes 2.5 thou/uL (1.20-3.40); #Monocytes 0.8 thou/uL (0.11-0.59); #Neutrophils 5.7 thou/uL (1.40-6.50); %Basophils 0.6 % (0.0-1.0); %Eosinophils 5.2 % (0.0-10.0); %Lymphocytes 25.9 % (21.0-51.0); %Monocytes 8.1 % (0.0-10.0); %Neutrophils 60.2 % (42.0-75.0); Mean Corpuscular HGB CONC 34.7 g/dL (32.0-36.0); Mean Corpuscular Hemoglobin 32.3 pg (27.0-31.0); Mean Corpuscular Volume 93.2 fL (78.0-98.0); Mean Platelet Volume 6.4 fL (7.4-10.4); Platelet Count 243 thou/uL (130-400); Red Blood Cell (RBC) Count 4.65 mill/uL (4.70-6.10); White Blood Cell (WBC) Count 9.5 thou/uL (4.8-10.8)
--- NOTE | 2018-06-21 09:51 | RAD ---
FFrontal radiograph chest: 06/21/2018 COMPARISON: 03/30/2018 HISTORY: Shortness of breath, dyspnea, COPD FINDINGS: Stable increased linear interstitial density. Stable metallic densities overlie left yeyo l head. No focal consolidation or alveolar edema. IMPRESSION: No acute findings.
[2018-06-21 10:10] LABS: ALT (SGPT) 19 U/L (8-55); AST (SGOT) 11 U/L (5-34); Alkaline Phosphatase 104 U/L (40-150); Anion Gap 15 mmol/L (10-20); BUN (Urea Nitrogen) 14 mg/dL (8.4-25.7); Bilirubin, Total 1.1 mg/dL (0.2-1.2); Calc. Creatinine Clearance 0 mL/min (70-130); Calcium 9.1 mg/dL (7.8-10.44); Carbon Dioxide 25 mmol/L (23-31); Chloride 105 mmol/L (98-107); Estimated GFR-MDRD 71; Globulin 2.5 g/dL (2.4-3.5); Glucose 131 mg/dL (80-115); Potassium 3.9 mmol/L (3.5-5.1); Protein, Total 6.5 g/dL (5.8-8.1); Sodium 141 mmol/L (136-145)
== END 2018-06-21 11:20 | disposition home or self-care (01) ==
LOC: ERS 09:22
DX: J44.1 Chronic obstructive pulmonary disease with (acute) exacerbation (principal); E10.9 Type 1 diabetes mellitus without complications; F41.9 Anxiety disorder, unspecified; Z87.891 Personal history of nicotine dependence; Z79.899 Other long term (current) drug therapy; Z79.84 Long term (current) use of oral hypoglycemic drugs; Z79.51 Long term (current) use of inhaled steroids
CPT/HCPCS: 36415; 71045; 80053; 83880; 84484; 85025; 93005; 94760

== ENCOUNTER 2018-08-04 14:55 | Inpatient (IN) | payer OTHER ==
[2018-08-04] MEDS ORDERED: methylPREDNISolone Sod Succ/PF 125 MG/2 ML VIAL ONE (15:10)
[2018-08-04 15:19] LABS: #Basophils 0.1 thou/uL (0.0-0.2); #Eosinphils 0.6 thou/uL (0.0-0.7); #Lymphocytes 1.6 thou/uL (1.20-3.40); #Monocytes 0.7 thou/uL (0.11-0.59); %Basophils 1.1 % (0.0-1.0); %Eosinophils 7.5 % (0.0-10.0); %Lymphocytes 19.6 % (21.0-51.0); %Neutrophils 62.9 % (42.0-75.0); Hemoglobin 15.3 g/dL (14.0-18.0); Mean Corpuscular HGB CONC 34.7 g/dL (32.0-36.0); Mean Corpuscular Hemoglobin 32.1 pg (27.0-31.0); Mean Corpuscular Volume 92.7 fL (78.0-98.0); Mean Platelet Volume 7.1 fL (7.4-10.4); Platelet Count 241 thou/uL (130-400); RBC Distribution Width 11.9 % (11.5-14.5); Red Blood Cell (RBC) Count 4.75 mill/uL (4.70-6.10)
[2018-08-04 15:20] LABS: ALV-art Gradient 77.815 (0-20); Actual Bicarbonate (HCO3a) 22.2 mEq/L (22-28); Analyzer IN Cardio ER; Base Excess (BEa) -1.7 mEq/L (-2.0 to +3.0); CO2 Tension 35.3 mmHg (35.0-45.0); Calcium, Ionized 1.16 mmol/L (1.12-1.30); Carboxyhemoglobin (COHb) 0.2 gm% (0.0-3.0); Hemoglobin (Hb) 15.8 g/dL (14.0-18.0); O2 Tension (PaO2) 77.7 mmHg (> 80.0); Puncture Site RRA; pH, Arterial 7.42 (7.35-7.45)
--- NOTE | 2018-08-04 15:45 | RAD ---
RADIOGRAPH CHEST 1 VIEW: Date: 08/04/2018. Time: 3:21 p.m. HISTORY: A 62-year-old male with productive cough. COMPARISON: 06/21/2018. FINDINGS: There is a new finding of a moderate-sized region of mildly increased attenuation at the lateral aspe ct of the left mid lung zone. No pulmonary edema. Right lung is relatively clear. No pneumothorax. No cardiomegaly. There is effacement of the left lateral costophrenic angle which is similar to th at of the prior study, and similar to 07/02/2017. IMPRESSION: 1. Questionable new infiltrate in the left mid lung zone. Consider CT to confirm. (There is a poss ibility that this could be overlapping density from outside of the rib cage.) 2. Thickening-scarring of the left pleura at the lateral base. JN [] POS: [facility]
[2018-08-04 16:01] LABS: ALT (SGPT) 28 U/L (8-55); AST (SGOT) 19 U/L (5-34); Albumin 4.1 g/dL (3.4-4.8); Alkaline Phosphatase 115 U/L (40-150); Anion Gap 14 mmol/L (10-20); BUN (Urea Nitrogen) 16 mg/dL (8.4-25.7); Bilirubin, Total 0.9 mg/dL (0.2-1.2); Calc. Creatinine Clearance 0 mL/min (70-130); Calcium 9.2 mg/dL (7.8-10.44); Carbon Dioxide 23 mmol/L (23-31); Chloride 108 mmol/L (98-107); Estimated GFR-MDRD 60; Globulin 2.2 g/dL (2.4-3.5); Glucose 158 mg/dL (80-115); Potassium 4.5 mmol/L (3.5-5.1); Protein, Total 6.3 g/dL (5.8-8.1); Sodium 140 mmol/L (136-145)
[2018-08-04] MEDS ORDERED: Azithromycin 500 MG VIAL ONE (16:55)
[2018-08-04] MEDS ORDERED: cefTRIAXone\\ROCEPHIN 2 GM VIAL ONE (16:55)
[2018-08-04] MEDS ORDERED: Sodium Chloride 0.9% 1,000 ML IV SCH (20:55)
[2018-08-04] MEDS ORDERED: Senokot S 8.6-50 MG TAB PO PRN (21:24)
[2018-08-04] MEDS ORDERED: Guaifenesin DM 100-10/5 ML UDCUP PO PRN (21:24)
[2018-08-04] MEDS ORDERED: Acetaminophen 325 MG TAB PO PRN (21:24)
[2018-08-04] MEDS ORDERED: HumaLOG 300 UNITS/3 ML VIAL SC PRN (21:24)
[2018-08-04] MEDS ORDERED: Meclizine HCl 25 MG TAB PO PRN (21:24)
[2018-08-04] MEDS ORDERED: Acetaminophen 650 MG Suppository PR PRN (21:24)
[2018-08-04] MEDS ORDERED: Ondansetron ODT 4 MG TAB PO PRN (21:24)
[2018-08-04] MEDS ORDERED: Dextrose 50% Abboject 50 ML SYRINGE SLOW IVP PRN (21:24)
[2018-08-04] MEDS ORDERED: Dextrose 5% in Water 1,000 ML IV PRN (21:24)
[2018-08-04] MEDS ORDERED: Ondansetron PF 4 MG/2 ML Vial IVP PRN (21:24)
[2018-08-04] MEDS ORDERED: Ipratropium Bromide 2.5 ml Neb NEB PRN (21:42)
[2018-08-04 21:55] LABS: Lactic Acid 2.9 mmol/L (0.5-2.2)
[2018-08-04 22:00] VITALS: BMI 37.4
[2018-08-04] MEDS: Fluticasone Propionate Nasal Spray 16 gm Bottle NASAL SCH (22:37)
[2018-08-04] MEDS: metFORMIN 500 MG TAB PO SCH (22:37)
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
[2018-08-05] MEDS: Albuterol Sulfate 2.5 mg/3 ml Neb NEB SCH ×2 (00:14→07:28)
[2018-08-05] MEDS: methylPREDNISolone Sod Succ 40 MG VIAL IVP SCH ×5 (00:58→23:11)
[2018-08-05 04:57] LABS: #Lymphocytes 0.6 thou/uL (1.20-3.40); #Monocytes 0.2 thou/uL (0.11-0.59); #Neutrophils 10.3 thou/uL (1.40-6.50); %Basophils 0.2 % (0.0-1.0); %Eosinophils 0.2 % (0.0-10.0); %Lymphocytes 5.5 % (21.0-51.0); %Monocytes 1.7 % (0.0-10.0); %Neutrophils 92.5 % (42.0-75.0); Mean Corpuscular HGB CONC 34.3 g/dL (32.0-36.0); Mean Corpuscular Hemoglobin 32.1 pg (27.0-31.0); Mean Corpuscular Volume 93.4 fL (78.0-98.0); Mean Platelet Volume 7.1 fL (7.4-10.4); Platelet Count 236 thou/uL (130-400); RBC Distribution Width 11.8 % (11.5-14.5); Red Blood Cell (RBC) Count 4.68 mill/uL (4.70-6.10); White Blood Cell (WBC) Count 11.2 thou/uL (4.8-10.8)
[2018-08-05 05:17] LABS: Anion Gap 14 mmol/L (10-20); BUN (Urea Nitrogen) 15 mg/dL (8.4-25.7); Calc. Creatinine Clearance 127 mL/min (70-130); Calcium 9.2 mg/dL (7.8-10.44); Carbon Dioxide 22 mmol/L (23-31); Chloride 106 mmol/L (98-107); Estimated GFR-MDRD 77; Glucose 188 mg/dL (80-115); Potassium 4.9 mmol/L (3.5-5.1); Sodium 137 mmol/L (136-145)
[2018-08-05] MEDS: Mometasone/Formoterol 120 PUFF INHALER INH SCH ×2 (07:28→19:39)
[2018-08-05] MEDS: Enoxaparin Sodium 40 MG/0.4 ML SYRINGE SC SCH (08:20)
[2018-08-05] MEDS: metFORMIN 500 MG TAB PO SCH ×2 (08:21→20:55)
[2018-08-05] MEDS: Montelukast Sodium 10 mg Tablet PO SCH (08:21)
[2018-08-05] MEDS: Fluticasone Propionate Nasal Spray 16 gm Bottle NASAL SCH ×2 (08:24→20:55)
--- NOTE | 2018-08-05 08:52 | PDOC.PN ---
- Subjective Encounter Start Date: 08/05/18 (f/u respiratory failure) Encounter Start Time: 08:50 Subjective: Pt reports feeling better this morning - off bipap. Denies any new -: symptoms. continues to hear/feel wheezing - Objective Resuscitation Status - Order Detail: 08/04/18 17:18 Resuscitation Status Routine Resuscitation Status: FULL: Full Resuscitation Discussed with: Patient Vital Signs & Weight: Vital Signs (12 hours) Temp Pulse Resp BP Pulse Ox 08/05/18 07:28 103 H 22 H 90 L 08/05/18 07:13 97.4 F L 08/05/18 04:00 93 L 08/05/18 03:31 97.8 F 08/05/18 03:00 90 18 124/67 93 L 08/05/18 01:16 97 20 138/86 95 08/05/18 00:14 87 18 93 L 08/05/18 00:00 93 L 08/04/18 23:30 98.1 F 08/04/18 23:00 92 134/80 93 L 08/04/18 22:00 90 22 H 164/93 H 96 08/04/18 21:24 92 16 98 08/04/18 21:00 95 Weight Weight 253 lb 8.505 oz Most Recent Monitor Data Heart Rate from ECG 94 NIBP 163/93 NIBP BP-Mean 116 Respiration from ECG 22 SpO2 91 I&O: 08/04/18 08/05/18 08/06/18 06:59 06:59 06:59 Intake Total 540 Balance 540 Result Diagrams: 08/05/18 04:38 08/05/18 04:38 Additional Labs: Accuchecks 08/05/18 08/04/18 05:32 21:24 POC Glucose 169 H 236 H EKG Reviewed by me: Yes (sinus rhythm, no arrhythmias) Phys Exam - Physical Examination Constitutional: NAD Respiratory: no wheezing fair air movement, expiratory wheezing, no audible rales Cardiovascular: RRR, no significant murmur Gastrointestinal: soft, non-tender, no distention, positive bowel sounds 1+ edema bilateral LE 2+ DP pulses bilateral Neurological: non-focal, moves all 4 limbs Skin: no rash Dx/Plan (1) Acute respiratory failure with hypoxia Code(s): J96.01 - ACUTE RESPIRATORY FAILURE WITH HYPOXIA Status: Acute (2) Acute exacerbation of chronic obstructive pulmonary disease Code(s): J44.1 - CHRONIC OBSTRUCTIVE PULMONARY DISEASE W (ACUTE) EXACERBATION Status: Acute (3) Depression Code(s): F32.9 - MAJOR DEPRESSIVE DISORDER, SINGLE EPISODE, UNSPECIFIED Status : Chronic Qualifiers: Depression Type: unspecified Qualified Code(s): F32.9 - Major depressive disorder, single episode, unspecified (4) GERD (gastroesophageal reflux disease) Code(s): K21.9 - GASTRO-ESOPHAGEAL REFLUX DISEASE WITHOUT ESOPHAGITIS Status: Chronic Qualifiers: Esophagitis presence: esophagitis presence not specified Qualified Code(s) : K21.9 - Gastro-esophageal reflux disease without esophagitis (5) DM2 (diabetes mellitus, type 2) Status: Chronic Qualifiers: Diabetes mellitus long-term insulin use: 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 Bipap at night and prn during the day. Oxygen supplementation to maintain sats around 92% * DM - continue metformin and SSI * Other - continue home meds as currently ordered * * ambulate as tolerated, * * dvt prophy - lovenox * gi prophy - on ppi at home, continue * code status full. * * anticipate pt will be here a few days based on extent of exacerbation. * * reviewed plan of care with patient, no questions or further needs at end of eval
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
[2018-08-05] MEDS: cefTRIAXone\\ROCEPHIN 2 GM in Sodium Chloride 0.9% 100 ML IVPB SCH (16:37)
[2018-08-05] MEDS: HumaLOG 300 UNITS/3 ML VIAL SC PRN (16:58)
[2018-08-05] MEDS ORDERED: Azithromycin 500 MG in Sodium Chloride 0.9% 250 ML 250 ML IVPB SCH (17:00)
[2018-08-05] MEDS: Albuterol Sulfate 2.5 mg/3 ml Neb NEB PRN (23:50)
[2018-08-06 05:01] LABS: #Lymphocytes 0.9 thou/uL (1.20-3.40); #Monocytes 0.7 thou/uL (0.11-0.59); #Neutrophils 13.7 thou/uL (1.40-6.50); %Eosinophils 0.2 % (0.0-10.0); %Lymphocytes 5.5 % (21.0-51.0); %Monocytes 4.8 % (0.0-10.0); %Neutrophils 89.5 % (42.0-75.0); Hemoglobin 13.9 g/dL (14.0-18.0); Mean Corpuscular HGB CONC 33.8 g/dL (32.0-36.0); Mean Corpuscular Volume 94.7 fL (78.0-98.0); Mean Platelet Volume 7.4 fL (7.4-10.4); Platelet Count 245 thou/uL (130-400); Red Blood Cell (RBC) Count 4.34 mill/uL (4.70-6.10); White Blood Cell (WBC) Count 15.4 thou/uL (4.8-10.8)
[2018-08-06 05:23] LABS: ALT (SGPT) 21 U/L (8-55); AST (SGOT) 10 U/L (5-34); Albumin 3.8 g/dL (3.4-4.8); Alkaline Phosphatase 95 U/L (40-150); Anion Gap 11 mmol/L (10-20); BUN (Urea Nitrogen) 22 mg/dL (8.4-25.7); Bilirubin, Total 0.4 mg/dL (0.2-1.2); Calc. Creatinine Clearance 115 mL/min (70-130); Calcium 9.3 mg/dL (7.8-10.44); Carbon Dioxide 26 mmol/L (23-31); Chloride 106 mmol/L (98-107); Estimated GFR-MDRD 68; Globulin 2.3 g/dL (2.4-3.5); Glucose 218 mg/dL (80-115); Potassium 4.3 mmol/L (3.5-5.1); Protein, Total 6.1 g/dL (5.8-8.1); Sodium 139 mmol/L (136-145)
[2018-08-06] MEDS: methylPREDNISolone Sod Succ 40 MG VIAL IVP SCH ×4 (06:09→23:33)
[2018-08-06] MEDS: HumaLOG 300 UNITS/3 ML VIAL SC PRN ×3 (06:10→18:01)
[2018-08-06] MEDS: Mometasone/Formoterol 120 PUFF INHALER INH SCH ×2 (06:19→18:25)
[2018-08-06] MEDS: Enoxaparin Sodium 40 MG/0.4 ML SYRINGE SC SCH (09:10)
[2018-08-06] MEDS: Fluticasone Propionate Nasal Spray 16 gm Bottle NASAL SCH ×2 (09:10→20:38)
[2018-08-06] MEDS: Montelukast Sodium 10 mg Tablet PO SCH (09:10)
[2018-08-06] MEDS: metFORMIN 500 MG TAB PO SCH ×2 (09:10→20:38)
[2018-08-06] MEDS: Albuterol Sulfate 2.5 mg/3 ml Neb NEB PRN (09:17)
--- NOTE | 2018-08-06 10:23 | RAD ---
EXAM: Chest PA and lateral: HISTORY: Hospital follow-up. COMPARISON: 08/04/2018 FINDINGS: Density in the left lower lung suggest atelectasis or infiltrate. Mild blunting of left CP angle may represent small effusion. Heart and mediastinum appear unremarkable. Vascularity is normal. Osseous structures are unremarkable. IMPRESSION: Left lower lung atelectasis or infiltrate. Question left effusion.
[2018-08-06] MEDS ORDERED: Albuterol Sulfate 2.5 mg/3 ml Neb NEB PRN (10:25)
--- NOTE | 2018-08-06 10:29 | PDOC.PN ---
- Subjective Encounter Start Date: 08/06/18 (f/u DM) Encounter Start Time: 10:26 Subjective: Pt reports 2 episodes of acute chest tightness, coughing, difficulty -: breathing that responded to neb tx. Denies any n/v/abd pain -: denies any new concerns today - Objective Resuscitation Status - Order Detail: 08/04/18 17:18 Resuscitation Status Routine Resuscitation Status: FULL: Full Resuscitation Discussed with: Patient Vital Signs & Weight: Vital Signs (12 hours) Temp Pulse Resp Pulse Ox 08/06/18 09:17 96 20 95 08/06/18 07:00 98.2 F 08/06/18 06:22 95 08/06/18 06:20 87 23 H 94 L 08/06/18 02:55 98.0 F 08/06/18 02:45 65 18 100 08/06/18 02:44 72 18 100 08/05/18 23:50 110 H 24 H 100 08/05/18 23:27 98.4 F 08/05/18 22:31 83 19 99 Weight Weight 247 lb 2.211 oz Most Recent Monitor Data Heart Rate from ECG 79 NIBP 140/82 NIBP BP-Mean 101 Respiration from ECG 19 SpO2 94 I&O: 08/05/18 08/06/18 08/07/18 06:59 06:59 06:59 Intake Total 540 1500 Output Total 1 Balance 540 1499 Result Diagrams: 08/06/18 04:40 08/06/18 04:40 Additional Labs: Accuchecks 08/06/18 08/05/18 08/05/18 05:34 19:46 16:34 POC Glucose 206 H 174 H 190 H 08/05/18 10:33 POC Glucose 224 H EKG Reviewed by me: Yes (tele - sinus rhythm) Phys Exam - Physical Examination Constitutional: NAD Respiratory: no rales, no rhonchi wheezing throughout with improved air movement Cardiovascular: RRR, no significant murmur Gastrointestinal: soft, non-tender, no distention, positive bowel sounds Musculoskeletal: pulses present 1+ edema bilateral LE Neurological: non-focal, moves all 4 limbs Psychiatric: normal affect Skin: no rash Dx/Plan (1) Acute respiratory failure with hypoxia Code(s): J96.01 - ACUTE RESPIRATORY FAILURE WITH HYPOXIA Status: Acute (2) Acute exacerbation of chronic obstructive pulmonary disease Code(s): J44.1 - CHRONIC OBSTRUCTIVE PULMONARY DISEASE W (ACUTE) EXACERBATION Status: Acute (3) Depression Code(s): F32.9 - MAJOR DEPRESSIVE DISORDER, SINGLE EPISODE, UNSPECIFIED Status : Chronic Qualifiers: Depression Type: unspecified Qualified Code(s): F32.9 - Major depressive disorder, single episode, unspecified (4) GERD (gastroesophageal reflux disease) Code(s): K21.9 - GASTRO-ESOPHAGEAL REFLUX DISEASE WITHOUT ESOPHAGITIS Status: Chronic Qualifiers: Esophagitis presence: esophagitis presence not specified Qualified Code(s) : K21.9 - Gastro-esophageal reflux disease without esophagitis (5) DM2 (diabetes mellitus, type 2) Status: Chronic Qualifiers: Diabetes mellitus [facility] insulin use: without [facility] use Chronic kidney disease stage: stage 2 (mild) - Plan * * Overall improved - appreciate Pulmonology consult - steroids, nebs, antibiotics (change azithromycin to PO) and plan for repeat CXR today. -Bipap at night and prn during the day. Oxygen supplementation to maintain sats around 92% * DM - add lantus HS, attribute higher blood sugars to steroids. Continue metformin and SSI * * Other - continue home meds as currently ordered * * ambulate as tolerated, * * transfer to medical floor, pt declines PT * * dvt prophy - lovenox * gi prophy - on ppi at home, continue * code status full. * * anticipate another few days to improve sx and increase activity * pt remains at high risk in current condition .
--- NOTE | 2018-08-06 11:19 | EKG ---
Test Reason : Blood Pressure : / mmHG Vent. Rate : 088 BPM Atrial Rate : 088 BPM P-R Int : 186 ms QRS Dur : 078 ms QT Int : 352 ms P-R-T Axes : 032 071 031 degrees QTc Int : 425 ms Normal sinus rhythm Normal ECG Confirmed by DR. Tatianna CARRANZA (3) on 08/06/2018 11:19:41 AM Referred By: Confirmed By:DR. Tatianna CARRANZA
--- NOTE | 2018-08-06 12:22 | PRG ---
DATE OF SERVICE: 08/06/2018 SUBJECTIVE: He is still experiencing episodic bronchospasms. He 11 o'clock last night because of that. OBJECTIVE: VITAL SIGNS: Temperature 98.3, pulse 79, blood pressure 140/82. HEENT: Unremarkable. NECK: No JVD. LUNGS: Diffuse wheezing. CARDIAC: S1 and S2. Regular. ABDOMEN: Soft. EXTREMITIES: No edema. LABORATORY DATA: White blood cell count 15.4, hematocrit 41.1, and platelet count 345. Sodium 139, potassium 4.3, BUN 22, creatinine 1.1, glucose 218. ASSESSMENT: 1. Chronic obstructive pulmonary disease with exacerbation. 2. Obstructive sleep apnea. PLAN: 1. Continue intermittent BiPAP as needed. 2. Continue antibiotics, steroids, and nebulization therapy. I will leave him in the [facility] for the time being. Job ID: [id number]
[2018-08-06] MEDS: Azithromycin 250 MG TAB PO SCH (15:48)
[2018-08-06] MEDS: cefTRIAXone\\ROCEPHIN 2 GM in Sodium Chloride 0.9% 100 ML IVPB SCH (15:51)
[2018-08-06] MEDS ORDERED: Insulin Glargine 10 UNITS in Pre-Filled Syringe 1 EACH SC SCH (21:00)
[2018-08-07] MEDS: HumaLOG 300 UNITS/3 ML VIAL SC PRN ×3 (05:31→16:23)
[2018-08-07] MEDS: methylPREDNISolone Sod Succ 40 MG VIAL IVP SCH ×4 (05:31→23:48)
[2018-08-07 06:40] LABS: #Lymphocytes 0.7 thou/uL (1.20-3.40); #Monocytes 0.7 thou/uL (0.11-0.59); #Neutrophils 12.1 thou/uL (1.40-6.50); %Basophils 0.1 % (0.0-1.0); %Eosinophils 0.3 % (0.0-10.0); %Lymphocytes 5.4 % (21.0-51.0); %Monocytes 5.2 % (0.0-10.0); Hemoglobin 13.9 g/dL (14.0-18.0); Mean Corpuscular HGB CONC 34.6 g/dL (32.0-36.0); Mean Corpuscular Hemoglobin 32.9 pg (27.0-31.0); Mean Platelet Volume 7.3 fL (7.4-10.4); Platelet Count 250 thou/uL (130-400); RBC Distribution Width 11.8 % (11.5-14.5); Red Blood Cell (RBC) Count 4.21 mill/uL (4.70-6.10); White Blood Cell (WBC) Count 13.6 thou/uL (4.8-10.8)
[2018-08-07 07:02] LABS: Anion Gap 15 mmol/L (10-20); BUN (Urea Nitrogen) 25 mg/dL (8.4-25.7); Calc. Creatinine Clearance 121 mL/min (70-130); Calcium 9.4 mg/dL (7.8-10.44); Carbon Dioxide 23 mmol/L (23-31); Chloride 104 mmol/L (98-107); Estimated GFR-MDRD 74; Glucose 251 mg/dL (80-115); Potassium 3.8 mmol/L (3.5-5.1); Sodium 138 mmol/L (136-145)
[2018-08-07] MEDS: Mometasone/Formoterol 120 PUFF INHALER INH SCH ×2 (08:36→19:15)
[2018-08-07] MEDS: Fluticasone Propionate Nasal Spray 16 gm Bottle NASAL SCH ×2 (08:39→20:20)
[2018-08-07] MEDS: Enoxaparin Sodium 40 MG/0.4 ML SYRINGE SC SCH (08:42)
[2018-08-07] MEDS: Montelukast Sodium 10 mg Tablet PO SCH (08:42)
[2018-08-07] MEDS: metFORMIN 500 MG TAB PO SCH ×2 (08:42→20:21)
--- NOTE | 2018-08-07 12:01 | PRG ---
DATE OF SERVICE: 08/07/2018 SUBJECTIVE: The patient is sleeping, on his BiPAP, has no distress. He says he feels better. OBJECTIVE: VITAL SIGNS: Temperature 97.6, pulse 79, respirations 20, O2 sat 96% on 2.5 L. HEENT: Unremarkable. NECK: No JVD. LUNGS: Mild end-expiratory wheezing. CARDIAC: S1, S2. Regular. ABDOMEN: Soft. EXTREMITIES: No edema. LABORATORY DATA: White blood cell count 13.6, hematocrit 40, platelet count 250. Sodium 138, potassium 3.8, BUN 25, creatinine 1.0, glucose 251. ASSESSMENT: 1. Chronic obstructive pulmonary disease with exacerbation. 2. Obstructive sleep apnea. PLAN: The patient remains on antibiotics and IV steroids. I would not taper his steroids at this moment. Hopefully, he will go home in the next 48 hours. Job ID: [id number]
--- NOTE | 2018-08-07 15:21 | PDOC.PN ---
- Subjective Encounter Start Date: 08/07/18 (f/u [facility]) Encounter Start Time: 15:19 Subjective: Pt reports breathing improved, exercise tolerance is less than normal -: denies any n/v/abd pain/diarrhea. Takes mucinex 12 hour at home and -: reports it helps with cough - Objective Resuscitation Status - Order Detail: 08/04/18 17:18 Resuscitation Status Routine Resuscitation Status: FULL: Full Resuscitation Discussed with: Patient Vital Signs & Weight: Vital Signs (12 hours) Temp Pulse Resp BP Pulse Ox 08/07/18 12:24 92 24 H 08/07/18 11:00 97.6 F 78 18 137/85 97 08/07/18 08:36 79 20 96 08/07/18 08:31 96 08/07/18 08:28 79 20 96 08/07/18 08:00 96 08/07/18 07:24 97.6 F 86 18 154/79 H 92 L 08/07/18 04:27 97.7 F 99 16 116/72 92 L Weight Weight 247 lb 2.211 oz Most Recent Monitor Data Heart Rate from ECG 102 NIBP 127/75 NIBP BP-Mean 92 Respiration from ECG 22 SpO2 93 I&O: 08/06/18 08/07/18 08/08/18 06:59 06:59 06:59 Intake Total 1500 1320 740 Output Total 1 Balance 1499 1320 740 Result Diagrams: 08/07/18 05:59 08/07/18 05:59 Additional Labs: Accuchecks 08/07/18 08/07/18 08/06/18 11:41 04:10 20:04 POC Glucose 202 H 258 H 237 H 08/06/18 15:38 POC Glucose 161 H Phys Exam - Physical Examination Constitutional: NAD expiratory wheezing, fair/improved air movement, no audible rales Cardiovascular: RRR, no significant murmur Gastrointestinal: soft, non-tender, no distention, positive bowel sounds trace pitting edema bilateral Neurological: non-focal, moves all 4 limbs Psychiatric: normal affect Skin: no rash Dx/Plan (1) Acute respiratory failure with hypoxia Code(s): J96.01 - ACUTE RESPIRATORY FAILURE WITH HYPOXIA Status: Acute (2) Acute exacerbation of chronic obstructive pulmonary disease Code(s): J44.1 - CHRONIC OBSTRUCTIVE PULMONARY DISEASE W (ACUTE) EXACERBATION Status: Acute (3) Depression Code(s): F32.9 - MAJOR DEPRESSIVE DISORDER, SINGLE EPISODE, UNSPECIFIED Status : Chronic Qualifiers: Depression Type: unspecified Qualified Code(s): F32.9 - Major depressive disorder, single episode, unspecified (4) GERD (gastroesophageal reflux disease) Code(s): K21.9 - GASTRO-ESOPHAGEAL REFLUX DISEASE WITHOUT ESOPHAGITIS Status: Chronic Qualifiers: Esophagitis presence: esophagitis presence not specified Qualified Code(s) : K21.9 - Gastro-esophageal reflux disease without esophagitis (5) DM2 (diabetes mellitus, type 2) Status: Chronic Qualifiers: Diabetes mellitus terminologist insulin use: without senior living use Chronic kidney disease stage: stage 2 (mild) - Plan * * Overall improved - appreciate Pulmonology consult - steroids (continue IV), nebs, antibiotics (change azithromycin to PO) and plan for repeat CXR today. -Bipap at night and prn during the day. Oxygen supplementation to maintain sats around 92% * DM - increase to 15 units lantus HS, attribute higher blood sugars to steroids. Continue metformin and SSI * * Other - continue home meds as currently ordered * * ambulate as tolerated. Pt ambulating without oxygen - discussed that he may benefit from ambulating with portable oxygen. * * change robitussin to mucinex bid * * dvt prophy - lovenox * gi prophy - on ppi at home, continue * code status full. * * anticipate another few days to improve sx and increase activity * pt remains at high risk in current condition. * no questions or further needs, pt demonstrates understanding and agrees with plan of care
[2018-08-07] MEDS: Azithromycin 250 MG TAB PO SCH (16:16)
[2018-08-07] MEDS: cefTRIAXone\\ROCEPHIN 2 GM in Sodium Chloride 0.9% 100 ML IVPB SCH (16:17)
[2018-08-07] MEDS: Insulin Glargine 15 UNITS in Pre-Filled Syringe 1 EACH SC SCH (20:21)
[2018-08-07] MEDS: guaiFENesin ER 600 MG TAB PO SCH (20:21)
[2018-08-08] MEDS: methylPREDNISolone Sod Succ 40 MG VIAL IVP SCH (05:49)
[2018-08-08] MEDS: Fluticasone Propionate Nasal Spray 16 gm Bottle NASAL SCH ×2 (08:24→19:58)
[2018-08-08] MEDS: metFORMIN 500 MG TAB PO SCH ×2 (08:24→19:59)
[2018-08-08] MEDS: Montelukast Sodium 10 mg Tablet PO SCH (08:25)
[2018-08-08] MEDS: guaiFENesin ER 600 MG TAB PO SCH ×2 (08:25→19:59)
[2018-08-08] MEDS: Enoxaparin Sodium 40 MG/0.4 ML SYRINGE SC SCH (08:25)
--- NOTE | 2018-08-08 08:54 | PDOC.PN ---
- Subjective Encounter Start Date: 08/08/18 Encounter Start Time: 11:30 Subjective: Patient feeling a bit better, but had a severe attack early in the -: morning. Breathing better now. - Objective Resuscitation Status - Order Detail: 08/04/18 17:18 Resuscitation Status Routine Resuscitation Status: FULL: Full Resuscitation Discussed with: Patient FER Reviewed: Yes Vital Signs & Weight: Vital Signs (12 hours) Temp Pulse Resp BP Pulse Ox 08/08/18 07:39 97.6 F 82 16 135/78 98 08/08/18 02:24 108 H 24 H 95 08/07/18 23:32 84 20 Weight Weight 247 lb 2.211 oz Most Recent Monitor Data Heart Rate from ECG 102 NIBP 127/75 NIBP BP-Mean 92 Respiration from ECG 22 SpO2 93 I&O: 08/07/18 08/08/18 08/09/18 06:59 06:59 06:59 Intake Total 1320 2560 Balance 1320 2560 Result Diagrams: 08/07/18 05:59 08/07/18 05:59 Additional Labs: Accuchecks 08/08/18 08/07/18 08/07/18 04:18 19:44 15:42 POC Glucose 175 H 200 H 208 H 08/07/18 11:41 POC Glucose 202 H Phys Exam - Physical Examination Constitutional: NAD HEENT: moist MMs Respiratory: no rales, no rhonchi scattered wheezing, tight breath sounds Cardiovascular: RRR, no significant murmur Gastrointestinal: soft, positive bowel sounds Neurological: non-focal, moves all 4 limbs Psychiatric: normal affect, A&O x 3 Dx/Plan (1) COPD exacerbation Code(s): J44.1 - CHRONIC OBSTRUCTIVE PULMONARY DISEASE W (ACUTE) EXACERBATION Status: Acute (2) Pneumonia Code(s): J18.9 - PNEUMONIA, UNSPECIFIED ORGANISM Status: Acute Qualifiers: Laterality: left Lung location: lower lobe of lung (3) Acute respiratory failure with hypoxia Code(s): J96.01 - ACUTE RESPIRATORY FAILURE WITH HYPOXIA Status: Acute (4) Depression Code(s): F32.9 - MAJOR DEPRESSIVE DISORDER, SINGLE EPISODE, UNSPECIFIED Status : Chronic Qualifiers: Depression Type: unspecified Qualified Code(s): F32.9 - Major depressive disorder, single episode, unspecified (5) GERD (gastroesophageal reflux disease) Code(s): K21.9 - GASTRO-ESOPHAGEAL REFLUX DISEASE WITHOUT ESOPHAGITIS Status: Chronic Qualifiers: Esophagitis presence: esophagitis presence not specified Qualified Code(s) : K21.9 - Gastro-esophageal reflux disease without esophagitis (6) DM2 (diabetes mellitus, type 2) Status: Chronic Qualifiers: Diabetes mellitus [facility] insulin use: without [facility] use Chronic kidney disease stage: stage 2 (mild) (7) REMINGTON (obstructive sleep apnea) Code(s): G47.33 - OBSTRUCTIVE SLEEP APNEA (ADULT) (PEDIATRIC) Status: Chronic Comment: on home BiPAP (8) Obesity (BMI 30-39.9) Code(s): E66.9 - OBESITY, UNSPECIFIED Status: Chronic - Plan cont current plan of care, continue antibiotics, respiratory therapy, DVT proph w/lovenox, DVT proph w/SCDs 1-2 more days * . - Discharge Day Encounter end time: 11:40
--- NOTE | 2018-08-08 09:13 | PRG ---
DATE OF SERVICE: 08/08/2018 SUBJECTIVE: This morning, he is awake and responsive. Said he had an episode last night of shortness of breath and cough. He was concerned. He is still wheezing this morning, but he is better. He has some left lung atelectatic changes, I doubt he has a pneumonia. OBJECTIVE: VITAL SIGNS: His temperature 98, pulse 72, respiratory rate 16, blood pressure 130/78, and saturations are 98% on 2L. CHEST: Minimal wheezing. CARDIAC: Normal S1 and S2. No gallops. ABDOMEN: No masses. IMPRESSION: 1. Chronic obstructive pulmonary disease exacerbation. 2. Bronchitis. 3. Sleep apnea. PLAN: Switch him over to p.o. prednisone, p.o. antibiotics. Hopefully, he can be discharged home in the next 24-48 hours. Job ID: [id number]
[2018-08-08] MEDS: predniSONE 20 MG TAB PO SCH ×2 (10:20→19:59)
[2018-08-08] MEDS: Mometasone/Formoterol 120 PUFF INHALER INH SCH ×2 (10:26→18:07)
[2018-08-08] MEDS: HumaLOG 300 UNITS/3 ML VIAL SC PRN ×2 (13:38→17:13)
[2018-08-08] MEDS: Azithromycin 250 MG TAB PO SCH (15:14)
[2018-08-08] MEDS: Insulin Glargine 15 UNITS in Pre-Filled Syringe 1 EACH SC SCH (20:02)
[2018-08-08] MEDS: Dicyclomine 20 MG TAB PO PRN (23:50)
[2018-08-09] MEDS: Dicyclomine 20 MG TAB PO PRN (06:31)
[2018-08-09] MEDS: Mometasone/Formoterol 120 PUFF INHALER INH SCH ×2 (07:06→18:40)
[2018-08-09] MEDS: Enoxaparin Sodium 40 MG/0.4 ML SYRINGE SC SCH (07:49)
[2018-08-09] MEDS: metFORMIN 500 MG TAB PO SCH ×2 (07:50→19:50)
[2018-08-09] MEDS: predniSONE 20 MG TAB PO SCH ×2 (07:50→19:50)
[2018-08-09] MEDS: guaiFENesin ER 600 MG TAB PO SCH ×2 (07:50→19:50)
[2018-08-09] MEDS: Montelukast Sodium 10 mg Tablet PO SCH (07:50)
[2018-08-09] MEDS: Fluticasone Propionate Nasal Spray 16 gm Bottle NASAL SCH ×2 (07:50→19:49)
--- NOTE | 2018-08-09 08:35 | PDOC.PN ---
- Subjective Encounter Start Date: 08/09/18 Encounter Start Time: 12:30 Subjective: Patient improved, mild respiratory episode last night but not like -: the night before. Some abd spasm last night, resolved with meds -: normal BM, no diarrhea or constipation - Objective Resuscitation Status - Order Detail: 08/04/18 17:18 Resuscitation Status Routine Resuscitation Status: FULL: Full Resuscitation Discussed with: Patient MAR Reviewed: Yes Vital Signs & Weight: Vital Signs (12 hours) Temp Pulse Resp BP Pulse Ox 08/09/18 07:55 97.7 F 82 18 126/76 95 08/09/18 07:10 96 08/09/18 07:09 72 20 98 08/09/18 07:06 72 16 96 08/09/18 02:53 89 18 97 08/08/18 23:30 97.7 F 88 18 160/92 H 93 L 08/08/18 22:20 79 16 93 L 08/08/18 22:17 79 16 93 L Weight Weight 247 lb 2.211 oz Most Recent Monitor Data Heart Rate from ECG 102 NIBP 127/75 NIBP BP-Mean 92 Respiration from ECG 22 SpO2 93 I&O: 08/08/18 08/09/18 08/10/18 06:59 06:59 06:59 Intake Total 2560 1999 Balance 2560 1999 Result Diagrams: 08/07/18 05:59 08/07/18 05:59 Additional Labs: Accuchecks 08/09/18 08/08/18 08/08/18 04:28 19:48 16:43 POC Glucose 183 H 170 H 154 H 08/08/18 11:35 POC Glucose 196 H Phys Exam - Physical Examination Constitutional: NAD HEENT: moist MMs Respiratory: no rales, no rhonchi mild tightness and wheezing, improved air movement Cardiovascular: RRR, no significant murmur Gastrointestinal: soft, non-tender, positive bowel sounds Neurological: non-focal Psychiatric: normal affect, A&O x 3 Dx/Plan (1) COPD exacerbation Code(s): J44.1 - CHRONIC OBSTRUCTIVE PULMONARY DISEASE W (ACUTE) EXACERBATION Status: Acute Comment: on oral abx, steroids (2) Pneumonia Code(s): J18.9 - PNEUMONIA, UNSPECIFIED ORGANISM Status: Ruled-out Qualifiers: Laterality: left Lung location: lower lobe of lung Comment: atelectasis per Richard Gardner d/c'henny (3) Acute respiratory failure with hypoxia Code(s): J96.01 - ACUTE RESPIRATORY FAILURE WITH HYPOXIA Status: Acute (4) Depression Code(s): F32.9 - MAJOR DEPRESSIVE DISORDER, SINGLE EPISODE, UNSPECIFIED Status : Chronic Qualifiers: Depression Type: unspecified Qualified Code(s): F32.9 - Major depressive disorder, single episode, unspecified (5) GERD (gastroesophageal reflux disease) Code(s): K21.9 - GASTRO-ESOPHAGEAL REFLUX DISEASE WITHOUT ESOPHAGITIS Status: Chronic Qualifiers: Esophagitis presence: esophagitis presence not specified Qualified Code(s) : K21.9 - Gastro-esophageal reflux disease without esophagitis (6) DM2 (diabetes mellitus, type 2) Status: Chronic Qualifiers: Diabetes mellitus nursing home insulin use: without moth exterminator use Chronic kidney disease stage: stage 2 (mild) (7) REMINGTON (obstructive sleep apnea) Code(s): G47.33 - OBSTRUCTIVE SLEEP APNEA (ADULT) (PEDIATRIC) Status: Chronic Comment: on home BiPAP (8) Obesity (BMI 30-39.9) Code(s): E66.9 - OBESITY, UNSPECIFIED Status: Chronic - Plan cont current plan of care, continue antibiotics possibly home tomorrow * . - Discharge Day Encounter end time: 12:40
--- NOTE | 2018-08-09 09:45 | PRG ---
DATE OF SERVICE: 08/09/2018 SUBJECTIVE: This morning, he is still short of breath, but better. Sputum is clear. OBJECTIVE: VITAL SIGNS: Temperature is 97, pulse 82, respiratory rate 18, saturations 95% on 2 L, and blood pressure 120/67. CHEST: Minimal wheezing. CARDIAC: Normal S1 and S2. No gallops. ABDOMEN: No masses. IMPRESSION: 1. Chronic obstructive pulmonary disease, asthma, and bronchitis, stable. 2. Sleep apnea. 3. Obesity. PLAN: Can probably go home on present medication. Follow up with his primary care physician. Job ID: [id number]
[2018-08-09] MEDS: HumaLOG 300 UNITS/3 ML VIAL SC PRN ×2 (11:40→17:37)
[2018-08-09] MEDS: Azithromycin 250 MG TAB PO SCH (15:24)
[2018-08-09] MEDS: Insulin Glargine 15 UNITS in Pre-Filled Syringe 1 EACH SC SCH (19:52)
[2018-08-10] MEDS: Mometasone/Formoterol 120 PUFF INHALER INH SCH (06:00)
--- NOTE | 2018-08-10 07:53 | PDOC.PN ---
- Subjective Encounter Start Date: 08/10/18 Encounter Start Time: 11:00 Subjective: Patient improved further. Ready to go home. - Objective Resuscitation Status - Order Detail: 08/04/18 17:18 Resuscitation Status Routine Resuscitation Status: FULL: Full Resuscitation Discussed with: Patient Vital Signs & Weight: Vital Signs (12 hours) Temp Pulse Resp BP BP Pulse Ox 08/10/18 07:27 97.6 F 58 L 20 115/74 96 08/10/18 06:01 92 20 96 08/10/18 06:00 92 20 96 08/10/18 05:56 92 20 96 08/10/18 04:34 98.3 F 65 19 119/63 96 08/10/18 03:57 65 18 96 08/09/18 23:42 57 L 17 96 08/09/18 23:40 57 L 17 96 08/09/18 20:00 96 08/09/18 19:53 98.0 F 92 18 113/74 96 Weight Weight 247 lb 2.211 oz Most Recent Monitor Data Heart Rate from ECG 102 NIBP 127/75 NIBP BP-Mean 92 Respiration from ECG 22 SpO2 93 I&O: 08/09/18 08/10/18 08/11/18 06:59 06:59 06:59 Intake Total 1999 3400 Balance 1999 3400 Result Diagrams: 08/07/18 05:59 08/07/18 05:59 Additional Labs: Accuchecks 08/10/18 08/09/18 08/09/18 04:27 19:54 17:03 POC Glucose 183 H 154 H 170 H 08/09/18 11:12 POC Glucose 196 H Phys Exam - Physical Examination Constitutional: NAD HEENT: moist MMs Respiratory: no rales, no rhonchi scattered wheezes and tight breath sounds but no increased WOB, improved air movement from yesterday Cardiovascular: RRR Gastrointestinal: soft, positive bowel sounds Neurological: non-focal, moves all 4 limbs Psychiatric: normal affect, A&O x 3 Dx/Plan (1) COPD exacerbation Code(s): J44.1 - CHRONIC OBSTRUCTIVE PULMONARY DISEASE W (ACUTE) EXACERBATION Status: Acute Comment: on oral abx, steroids (2) Pneumonia Code(s): J18.9 - PNEUMONIA, UNSPECIFIED ORGANISM Status: Ruled-out Qualifiers: Laterality: left Lung location: lower lobe of lung Comment: atelectasis per Richard Gardner d/c'd (3) Acute respiratory failure with hypoxia Code(s): J96.01 - ACUTE RESPIRATORY FAILURE WITH HYPOXIA Status: Acute (4) Depression Code(s): F32.9 - MAJOR DEPRESSIVE DISORDER, SINGLE EPISODE, UNSPECIFIED Status : Chronic Qualifiers: Depression Type: unspecified Qualified Code(s): F32.9 - Major depressive disorder, single episode, unspecified (5) GERD (gastroesophageal reflux disease) Code(s): K21.9 - GASTRO-ESOPHAGEAL REFLUX DISEASE WITHOUT ESOPHAGITIS Status: Chronic Qualifiers: Esophagitis presence: esophagitis presence not specified Qualified Code(s) : K21.9 - Gastro-esophageal reflux disease without esophagitis (6) DM2 (diabetes mellitus, type 2) Status: Chronic Qualifiers: Diabetes mellitus custodial insulin use: without outside sales representative use Chronic kidney disease stage: stage 2 (mild) (7) REMINGTON (obstructive sleep apnea) Code(s): G47.33 - OBSTRUCTIVE SLEEP APNEA (ADULT) (PEDIATRIC) Status: Chronic Comment: on home BiPAP (8) Obesity (BMI 30-39.9) Code(s): E66.9 - OBESITY, UNSPECIFIED Status: Chronic - Plan cont current plan of care, continue antibiotics enough abx, will d/c -: can discharge home and f/u with Dr. Pedroza outpatient * . - Discharge Day Encounter end time: 11:30
[2018-08-10] MEDS: Enoxaparin Sodium 40 MG/0.4 ML SYRINGE SC SCH (08:34)
[2018-08-10] MEDS: predniSONE 20 MG TAB PO SCH (08:35)
[2018-08-10] MEDS: Fluticasone Propionate Nasal Spray 16 gm Bottle NASAL SCH (08:35)
[2018-08-10] MEDS: metFORMIN 500 MG TAB PO SCH (08:35)
[2018-08-10] MEDS: guaiFENesin ER 600 MG TAB PO SCH (08:35)
[2018-08-10] MEDS: Montelukast Sodium 10 mg Tablet PO SCH (08:35)
--- NOTE | 2018-08-10 09:53 | PRG ---
DATE OF SERVICE: 08/10/2018 SUBJECTIVE:. This morning, he says he is better and less short of breath. OBJECTIVE: VITAL SIGNS: He is 96% on 2 L sats, respirations 20, pulse 84 blood pressure 150/74. CHEST: Decreased breath sounds. Minimal wheezing. CARDIAC: Normal S1 and S2. No gallops. ABDOMEN: No masses. IMPRESSION: 1. Chronic obstructive pulmonary disease. 2. Bronchitis. 3. Asthma exacerbation, improved. DISPOSITION: Home. Continue tapering dose of prednisone. Antibiotics can be discontinued any time, he has had adequate antibiotics. Continue nocturnal CPAP. Follow up with primary care physician. Job ID: [id number] [id number]
[2018-08-10 14:29] VITALS: BP 137/77; TEMP 98.6
--- NOTE | 2018-08-11 05:31 | DIS ---
DATE OF ADMISSION: 08/04/2018 DATE OF DISCHARGE: 08/10/2018 PRIMARY CARE PHYSICIAN: Dr. Brody Fortune. REASON FOR ADMISSION: COPD exacerbation with possible pneumonia. DIAGNOSES AT DISCHARGE: 1. Chronic obstructive pulmonary disease exacerbation, improved. 2. Pneumonia, ruled out. 3. Acute on chronic respiratory failure with hypoxia, back to baseline. 4. Depression. 5. Gastroesophageal reflux disease. 6. Diabetes mellitus, type 2. 7. Obstructive sleep apnea. 8. Obesity. PROCEDURES: None. CONSULTATIONS: Pulmonology, Dr. Pedroza. SUMMARY OF HOSPITAL COURSE: This is a 62-year-old white male with known history of severe COPD, on home oxygen, also requires CPAP machine at home. He came in with a several-day history of increased cough, productive of white foamy sputum, chest tightness and trouble breathing. Ambulance brought him in and found him in severe increased work of breathing, improved with addition of CPAP, but still having significant increased work of breathing, so he was switched to BiPAP, feeling much better since then. The patient was put in the hospital, given steroids, antibiotics, and nebulized treatments. He had a slow improvement over his hospital course. We did consult Dr. Pedroza, his inspector open die, who followed along. There was some question on his initial chest x-ray of a pneumonia. Dr. Pedroza reviewed the films and determined this was atelectasis, not pneumonia. The patient's antibiotics were scaled back some. He did finish a course of azithromycin, which is being discontinued today. The patient was doing much better today and is being discharged home per Dr. Pedroza's recommendations, 2-week steroid taper. DISCHARGE MANAGEMENT: Location: Discharge home. Activity: As tolerated. Diet: Diabetic diet. Continue using CPAP at home as previously. Followup: Follow up with Dr. Pedroza and the outpatient with Dr. Fortune as needed. DISCHARGE MEDICATIONS: 1. Prednisone 10 mg tablets, taper over 2 weeks, 40 tablets dispensed. 2. Resume albuterol nebs as needed. 3. Symbicort 160/4.5 mg 2 puffs inhaled twice a day. 4. Dexilant 60 mg at night. 5. Flonase 2 sprays in each nostril twice a day. 6. Mucinex 600 mg twice a day. 7. Meclizine 25 mg every 6 hours. 8. Metformin 500 mg twice a day. 9. Singulair 10 mg daily. 10. Sertraline 100 mg daily. 11. Spiriva 18 mcg inhaler daily. Arranging the details of this discharge took 32 minutes. Job ID: [id number]
== END 2018-08-10 14:00 | disposition home or self-care (01) | DRG 189 ==
LOC: ERS 14:55 → IMCU/EMU 21:02 → T4-B 08-06 13:29
PROVIDERS: ADMIT Emergency Medicine; ATTEND Emergency Medicine
PROC: 5A09457 Assistance with Respiratory Ventilation, 24-96 Consecutive Hours, Continuous Positive Airway Pressure (ICD-10-PCS; principal; 2018-08-04)
DX: J96.21 Acute and chronic respiratory failure with hypoxia (principal); J44.1 Chronic obstructive pulmonary disease with (acute) exacerbation; J45.901 Unspecified asthma with (acute) exacerbation; E11.22 Type 2 diabetes mellitus with diabetic chronic kidney disease; N18.2 Chronic kidney disease, stage 2 (mild); E66.9 Obesity, unspecified; G47.33 Obstructive sleep apnea (adult) (pediatric); K21.9 Gastro-esophageal reflux disease without esophagitis; F32.9 Major depressive disorder, single episode, unspecified; F41.9 Anxiety disorder, unspecified; Z87.891 Personal history of nicotine dependence; Z99.81 Dependence on supplemental oxygen; Z88.1 Allergy status to other antibiotic agents; Z91.030 Bee allergy status; Z79.51 Long term (current) use of inhaled steroids; Z79.84 Long term (current) use of oral hypoglycemic drugs; Z79.899 Other long term (current) drug therapy; Z68.36 Body mass index [BMI] 36.0-36.9, adult
CPT/HCPCS: 36415; 36416; 71045; 71046; 80048; 80053; 82805; 83605; 84484; 85025; 87040; 87070; 87205; 93005; 94640; 96361; 96365; 96367; 96375; J0456; J0696; J1650; J1825; J2920; J2930; J3490; J7050; J7512; J7611; J7620

== ENCOUNTER 2018-09-17 13:40 | Observation (INO) | payer OTHER ==
[~2018-09-17 13:40] MED LIST: ISOVUE-370 76%-LOCM 1 ML ONE
[2018-09-17 14:10] LABS: #Basophils 0.1 thou/uL (0.0-0.2); #Eosinphils 0.3 thou/uL (0.0-0.7); #Lymphocytes 1.3 thou/uL (1.20-3.40); #Monocytes 0.6 thou/uL (0.11-0.59); %Lymphocytes 15.5 % (21.0-51.0); %Monocytes 7.3 % (0.0-10.0); %Neutrophils 72.2 % (42.0-75.0); Hemoglobin 14.9 g/dL (14.0-18.0); Mean Corpuscular HGB CONC 34.8 g/dL (32.0-36.0); Mean Corpuscular Hemoglobin 32.3 pg (27.0-31.0); Mean Corpuscular Volume 92.8 fL (78.0-98.0); Mean Platelet Volume 6.8 fL (7.4-10.4); Platelet Count 214 thou/uL (130-400); RBC Distribution Width 11.9 % (11.5-14.5); White Blood Cell (WBC) Count 8.4 thou/uL (4.8-10.8)
[2018-09-17 14:16] LABS: PTT 26.4 SEC (22.9-36.1); Prothrombin Time 12.2 SEC (12.0-14.7)
[2018-09-17 14:17] LABS: INR-International Normal Ratio 0.9
--- NOTE | 2018-09-17 14:18 | CT ---
NONCONTRAST HEAD CT: Date: 09/17/18 HISTORY: Vision changes. Loss of peripheral vision. Pressure behind the right eye. Right eye vision changes. COMPARISON: None. FINDINGS: No parenchymal hemorrhage. No extra-axial hematoma. No midline shift. Basilar cisterns are patent. Br ain volume is age-appropriate. Cortical carmen-white matter differentiation preserved. Ventricles and s ulci are patent and symmetric. Adequate aeration of sinuses and mastoid air cells. Calvarium is intac t. Visualized orbits are grossly unremarkable. IMPRESSION: No acute intracranial process. Results of study discussed with Dr. Kunz on 09/17/17 at 1407 hours. CODE CR. POS: [facility]
[2018-09-17 14:25] LABS: ALT (SGPT) 29 U/L (8-55); AST (SGOT) 15 U/L (5-34); Albumin 3.9 g/dL (3.4-4.8); Alkaline Phosphatase 95 U/L (40-150); Anion Gap 14 mmol/L (10-20); BUN (Urea Nitrogen) 16 mg/dL (8.4-25.7); Bilirubin, Total 0.8 mg/dL (0.2-1.2); Calc. Creatinine Clearance 0 mL/min (70-130); Calcium 9.4 mg/dL (7.8-10.44); Carbon Dioxide 24 mmol/L (23-31); Chloride 106 mmol/L (98-107); Estimated GFR-MDRD 70; Globulin 2.8 g/dL (2.4-3.5); Glucose 186 mg/dL (80-115); Potassium 4.4 mmol/L (3.5-5.1); Protein, Total 6.7 g/dL (5.8-8.1); Sodium 140 mmol/L (136-145)
--- NOTE | 2018-09-17 14:34 | CT ---
Exam: CT ANGIOGRAM HEAD CT ANGIOGRAM NECK: HISTORY: Right eye visual disturbance and change. Pressure behind the right eye. COMPARISON: None. TECHNIQUE: CT angiogram of the head and neck are performed in the axial plane. Three-dimensional refo rmatted images are submitted. FINDINGS: Postcontrast head CT: Cortical carmen-white matter is preserved. Postcontrast soft tissue neck CT: Bilateral ocular lenses are appropriately located. Both globes are intact. Retrobulbar fat is preserved. Symmetric attenuation of the optic nerves and ocular rectus muscles. Aerodigestive tract is patent. No mucosal abnormality. Limited evaluation of the oral cavity due to d ental amalgam artifact. Midline fatty raphae of the tongue is preserved. Adequate aeration of the sinuses and mastoid air cells. Symmetric attenuation of the parotid and submental glands. Unremarkable thyroid gland. Symmetric attenuation of the sternocleidomastoid muscles. No evidence of lymphadenopathy by size criteria. Cervical spine vertebral body height is maintained. No fracture. Varying degrees of central canal christian nosis and neural foraminal narrowing on the basis of degenerative change. At least moderate central canal stenosis at C4-C5 and C5-C6. Upper mediastinum and lung apices are unremarkable. CT ANGIOGRAM NECK: There is appropriate enhancement and luminal diameter of the aorta Right carotid: The right carotid artery origin, common carotid artery, carotid bifurcation, and inter nal carotid artery have appropriate enhancement and luminal diameter. Left carotid: Left carotid artery origin, common carotid artery, carotid bifurcation, and internal ca rotid artery have appropriate enhancement and luminal diameter. Bilateral subclavian arteries have appropriate enhancement and luminal diameter Right vertebral artery is dominant. Both vertebral arteries are patent throughout the neck. Note, the left vertebral artery originates directly off of the aorta. CT ANGIOGRAM HEAD: Intracranial internal carotid arteries have appropriate enhancement and luminal diameter. Anterior circulation: Left and right A1 segments are patent. The right A1 segment is diminutive, like ly due to congenital variant. Both A2 segments have symmetric enhancement and luminal diameter. Bilateral M1 segments have appropriate enhancement and luminal diameter. Proximal MCA branches are sy mmetric. Posterior circulation: The left PICA artery origin is unremarkable. Limited evaluation the right PICA artery origin. Both vertebral arteries supply a normal appearing basilar artery. Both P1 segments have appropriate enhancement and luminal diameter. IMPRESSION: 1. No significant stenosis at the level of [place]. 2. No significant stenosis involving the cervical carotid arteries, based on NASCET criteria. Results of study given to the ER described working with Dr. Kunz at the time of this dictation Code CR Transcribed Date/Time: 09/17/2018 2:50 PM
[2018-09-17] MEDS ORDERED: Acetaminophen 325 MG TAB PO PRN (17:32)
[2018-09-17] MEDS: metFORMIN 500 MG TAB PO SCH ×2 (19:01→20:58)
[2018-09-17] MEDS ORDERED: Montelukast Sodium 10 mg Tablet PO SCH (21:00)
[2018-09-17 22:06] VITALS: BMI 37.7
[2018-09-18 06:11] LABS: Cardiac Risk 5.3 (Less than 4.5)
[2018-09-18] MEDS ORDERED: Ipratropium Bromide 2.5 ml Neb NEB SCH (07:00)
[2018-09-18 07:46] VITALS: BP 125/59; TEMP 98.1
[2018-09-18] MEDS: metFORMIN 500 MG TAB PO SCH (08:38)
[2018-09-18] MEDS ORDERED: Montelukast Sodium 10 mg Tablet PO SCH (09:00)
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
--- NOTE | 2018-09-19 02:02 | DIS ---
DATE OF ADMISSION: 09/17/2018 DATE OF DISCHARGE: 09/18/2018 DISCHARGE DIAGNOSES: 1. Visual disturbance. 2. Subconjunctival hemorrhage. 3. History of right central retinal artery hemorrhagic stroke. 4. Chronic obstructive pulmonary disease. 5. Obstructive sleep apnea. 6. Diabetes mellitus. 7. Chronic kidney disease, stage 2. HISTORY: This patient is a 62-year-old male with a history of severe COPD who was actually in pretty good state regarding his breathing. He reports he was at home, leaned back and stretched his arms and felt an abnormal sensation in the superolateral right eye area. This resolved fairly quickly and was minor and he did not think much of it. However, when his mother subsequently came into the room and saw him, she noted that his eye was red. He looked in the mirror and saw that he had a subconjunctival hemorrhage, presented to the emergency department. There, he had his peripheral vision evaluated noting some right lateral peripheral vision deficits. Because of his history of the central retinal artery occlusion, there was concern that there may have been some more event. I was contacted for the admission, requested they perform a slit lamp exam. The patient reported that when that did occur, he did note some decreased visualization in the peripheral field. His exam was also notable for the relatively minor lateral limbus subconjunctival hemorrhage. His vital signs were otherwise stable and his exam was notable for some scattered wheezes and rales. HOSPITAL COURSE: The patient was admitted to the hospital with a negative CT brain, negative CT angio. He was felt to likely either be noticing his blind spot or having some minor peripheral visual disturbances due to the subconjunctival hemorrhage in the lateral hemisphere. He had telemetry monitoring, serial NIH evaluations. The following morning, he reported that he felt like the swelling had gone down. His vision had improved significantly and his exam confirmed that and he was felt to be stable for discharge to home. PHYSICAL EXAMINATION: VITAL SIGNS: Temperature was 98.1, pulse 78, respirations 16, O2 saturation 95% on room air, BP 125/59. HEART: Regular. LUNGS: Actually were improved with no wheezing or rales, just mildly diminished. HEENT: Revealed resolving right lateral hemisphere subconjunctival hemorrhage. He had no other neurologic findings. DISPOSITION: The patient is discharged home. DISCHARGE INSTRUCTIONS: He will continue his usual home medications with no new additions. He will remain on a diabetic diet. His activity level is as tolerated. FOLLOWUP: He is to follow up with his PCP and if he continues to feel like he is having some visual disturbance, he should follow up with Dr. Brennan, his neuroophthalmologist in [place]. Job ID: [id number]
--- NOTE | 2018-09-24 22:09 | EKG ---
Test Reason : Blood Pressure : / mmHG Vent. Rate : 069 BPM Atrial Rate : 069 BPM P-R Int : 208 ms QRS Dur : 086 ms QT Int : 374 ms P-R-T Axes : 055 055 033 degrees QTc Int : 400 ms Normal sinus rhythm with sinus arrhythmia Normal ECG Confirmed by AROLDO LAWRENCE ([id number]), news editor ALVINO APONTE ([id number]) on 09/24/2018 10:08:56 PM Referred By: Confirmed By:AROLDO LAWRENCE
== END 2018-09-18 10:02 | disposition home or self-care (01) ==
LOC: ERS 13:40 → ERHOLD 16:50 → 2SE 19:42
PROVIDERS: ADMIT Internal Medicine; ATTEND Internal Medicine
DX: H11.31 Conjunctival hemorrhage, right eye (principal); J44.9 Chronic obstructive pulmonary disease, unspecified; G47.33 Obstructive sleep apnea (adult) (pediatric); E10.22 Type 1 diabetes mellitus with diabetic chronic kidney disease; N18.2 Chronic kidney disease, stage 2 (mild); F41.9 Anxiety disorder, unspecified; J96.10 Chronic respiratory failure, unspecified whether with hypoxia or hypercapnia; E66.9 Obesity, unspecified; Z68.37 Body mass index [BMI] 37.0-37.9, adult; Z87.891 Personal history of nicotine dependence; Z99.81 Dependence on supplemental oxygen; Z86.69 Personal history of other diseases of the nervous system and sense organs; Z88.1 Allergy status to other antibiotic agents; Z91.030 Bee allergy status; Z79.84 Long term (current) use of oral hypoglycemic drugs; Z79.899 Other long term (current) drug therapy
CPT/HCPCS: 36415; 36416; 70450; 70496; 70498; 80053; 80061; 82550; 84484; 85025; 85610; 85730; 93005; 94640; G0378; Q9966

== ENCOUNTER 2018-10-09 13:44 | Inpatient (IN) | payer OTHER ==
[2018-10-09] MEDS ORDERED: methylPREDNISolone Sod Succ/PF 125 MG/2 ML VIAL ONE (13:57)
[2018-10-09 14:22] LABS: #Basophils 0.1 thou/uL (0.0-0.2); #Eosinphils 0.7 thou/uL (0.0-0.7); #Lymphocytes 1.2 thou/uL (1.20-3.40); #Monocytes 0.7 thou/uL (0.11-0.59); #Neutrophils 4.8 thou/uL (1.40-6.50); %Basophils 1.2 % (0.0-1.0); %Eosinophils 9.8 % (0.0-10.0); %Monocytes 9.4 % (0.0-10.0); %Neutrophils 63.6 % (42.0-75.0); Hemoglobin 15.6 g/dL (14.0-18.0); Mean Corpuscular HGB CONC 33.9 g/dL (32.0-36.0); Mean Corpuscular Hemoglobin 31.7 pg (27.0-31.0); Mean Corpuscular Volume 93.3 fL (78.0-98.0); Mean Platelet Volume 6.8 fL (7.4-10.4); Platelet Count 232 thou/uL (130-400); RBC Distribution Width 12.4 % (11.5-14.5); Red Blood Cell (RBC) Count 4.94 mill/uL (4.70-6.10); White Blood Cell (WBC) Count 7.5 thou/uL (4.8-10.8)
--- NOTE | 2018-10-09 14:23 | RAD ---
XR Chest 1 View Portable HISTORY: COPD COMPARISON: 07/25/2018 study FINDINGS: Heart size within normal limits the lungs appear clear of any infiltrative process. Mild ch ronic appearing changes seen. IMPRESSION: No active intrathoracic disease.
[2018-10-09 14:41] LABS: ALT (SGPT) 25 U/L (8-55); AST (SGOT) 19 U/L (5-34); Alkaline Phosphatase 92 U/L (40-150); Anion Gap 11 mmol/L (10-20); BUN (Urea Nitrogen) 12 mg/dL (8.4-25.7); Calc. Creatinine Clearance 0 mL/min (70-130); Calcium 9.7 mg/dL (7.8-10.44); Carbon Dioxide 22 mmol/L (23-31); Chloride 106 mmol/L (98-107); Estimated GFR-MDRD 78; Globulin 3.4 g/dL (2.4-3.5); Glucose 154 mg/dL (80-115); Potassium 4.1 mmol/L (3.5-5.1); Protein, Total 7.4 g/dL (5.8-8.1); Sodium 135 mmol/L (136-145)
[2018-10-09] MEDS ORDERED: Albuterol Sulfate 2.5 mg/3 ml Neb ONE (14:57)
[2018-10-09] MEDS ORDERED: Albuterol Sulfate 2.5 mg/0.5 ml Neb ONE (14:57)
[2018-10-09] MEDS ORDERED: Ondansetron ODT 4 MG TAB SL PRN (17:03)
[2018-10-09] MEDS ORDERED: Acetaminophen 325 MG TAB PO PRN (17:03)
[2018-10-09] MEDS ORDERED: HYDROcodone/Acetaminophen 5/325 mg Tablet PO PRN ×2 (17:03)
[2018-10-09] MEDS ORDERED: Ondansetron PF 4 MG/2 ML Vial IVP PRN (17:03)
[2018-10-09 17:06] VITALS: BMI 36.2
[2018-10-09] MEDS: Sodium Chloride 0.9% 1,000 ML IV SCH (17:20)
[2018-10-09] MEDS: methylPREDNISolone Sod Succ/PF 125 MG/2 ML VIAL IVP SCH (17:20)
[2018-10-09] MEDS ORDERED: Meclizine HCl 25 MG TAB PO PRN (17:57)
[2018-10-09] MEDS: methylPREDNISolone Sod Succ 40 MG VIAL IVP SCH (18:05)
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
[2018-10-09] MEDS: guaiFENesin ER 600 MG TAB PO SCH (20:42)
[2018-10-09] MEDS: Doxycycline 100 MG CAP PO SCH (20:42)
[2018-10-10] MEDS: methylPREDNISolone Sod Succ/PF 125 MG/2 ML VIAL IVP SCH (00:19)
[2018-10-10] MEDS: methylPREDNISolone Sod Succ 40 MG VIAL IVP SCH ×5 (00:19→23:52)
[2018-10-10] MEDS: Sodium Chloride 0.9% 1,000 ML IV SCH ×2 (03:21→18:53)
[2018-10-10 07:21] LABS: Actual Bicarbonate (HCO3a) 17.6 mEq/L (22-28); Base Excess (BEa) -8.1 mEq/L (-2.0 to +3.0); CO2 Tension 37.2 mmHg (35.0-45.0); Calcium, Ionized 1.19 mmol/L (1.12-1.30); Carboxyhemoglobin (COHb) 0.6 gm% (0.0-3.0); Hemoglobin (Hb) 16.2 g/dL (14.0-18.0); O2 Tension (PaO2) 127.4 mmHg (> 80.0); pH, Arterial 7.29 (7.35-7.45)
[2018-10-10 07:30] LABS: Puncture Site LRA
[2018-10-10] MEDS: Doxycycline 100 MG CAP PO SCH ×2 (07:50→20:12)
[2018-10-10] MEDS: guaiFENesin ER 600 MG TAB PO SCH ×2 (07:50→20:12)
[2018-10-10] MEDS: metFORMIN 500 MG TAB PO SCH (07:50)
[2018-10-10] MEDS: Montelukast Sodium 10 mg Tablet PO SCH (07:50)
--- NOTE | 2018-10-10 10:03 | PDOC.PN ---
- Subjective Encounter Start Date: 10/10/18 Encounter Start Time: 10:01 Patient lying in bed, he had an episode of worsening dyspnea this morning, but is doing better now. He reports stable cough and shortness of breath with phlegm production. He denies fever or chills. Denies chest pain or palpitations - Objective Resuscitation Status - Order Detail: 10/09/18 17:54 Resuscitation Status Routine Resuscitation Status: FULL: Full Resuscitation MAR Reviewed: Yes Vital Signs & Weight: Vital Signs (12 hours) Temp Pulse Resp BP Pulse Ox 10/10/18 07:43 121 H 34 H 81 L 10/10/18 07:30 121 H 24 H 92 L 10/10/18 07:15 97.2 F L 99 22 H 138/88 97 10/10/18 05:30 98 F 74 18 160/89 H 96 10/10/18 01:13 97.9 F 83 18 140/78 97 Weight Weight 245 lb 8 oz I&O: 10/09/18 10/10/18 10/11/18 06:59 06:59 06:59 Intake Total 1102 Balance 1102 Result Diagrams: 10/09/18 14:09 10/09/18 14:09 Radiology Reviewed by me: Yes Phys Exam - Physical Examination Constitutional: NAD HEENT: moist MMs, oral pharynx no lesions Neck: supple, full ROM Respiratory: wheezing present Course breath sounds heard throughout lung [place] Cardiovascular: RRR, no significant murmur Gastrointestinal: soft, positive bowel sounds Musculoskeletal: no edema, pulses present Neurological: non-focal, moves all 4 limbs Lymphatic: no nodes Psychiatric: normal affect, A&O x 3 Skin: no rash, cap refill <2 seconds Dx/Plan (1) Acute exacerbation of chronic obstructive pulmonary disease Code(s): J44.1 - CHRONIC OBSTRUCTIVE PULMONARY DISEASE W (ACUTE) EXACERBATION Status: Acute (2) DM2 (diabetes mellitus, type 2) Status: Chronic Qualifiers: Diabetes mellitus oysterman insulin use: without oysterman use Chronic kidney disease stage: stage 2 (mild) (3) GERD (gastroesophageal reflux disease) Code(s): K21.9 - GASTRO-ESOPHAGEAL REFLUX DISEASE WITHOUT ESOPHAGITIS Status: Chronic Qualifiers: Esophagitis presence: esophagitis presence not specified Qualified Code(s) : K21.9 - Gastro-esophageal reflux disease without esophagitis (4) Obesity (BMI 30-39.9) Code(s): E66.9 - OBESITY, UNSPECIFIED Status: Chronic - Plan cont current plan of care, continue antibiotics, respiratory therapy * Continue Doxycycline, IV solumedrol and duonebs * Continue home Bipap at night * Oxygen supplementation as needed to maintain O2 sats * Continue home medications including metformin for DM * Patient will follow closely with Dr Pedroza Cloud Engineer as outpatient * Possible discharge in next 24-48 hours if improved
--- NOTE | 2018-10-10 17:29 | PDOC.PN ---
- Subjective Encounter Start Date: 10/10/18 Encounter Start Time: 17:27 Subjective: three episodes severe resp distress today - Objective Resuscitation Status - Order Detail: 10/09/18 17:54 Resuscitation Status Routine Resuscitation Status: FULL: Full Resuscitation MAR Reviewed: Yes Vital Signs & Weight: Vital Signs (12 hours) Temp Pulse Resp BP Pulse Ox 10/10/18 17:10 114 H 24 H 155/69 H 97 10/10/18 17:09 127 H 34 H 95 10/10/18 15:50 98.0 F 75 12 136/65 95 10/10/18 14:17 96 18 98 10/10/18 13:31 90 L 10/10/18 13:10 93 24 H 165/74 H 97 10/10/18 12:55 96 22 H 97 10/10/18 11:51 97.3 F L 87 20 139/70 94 L 10/10/18 10:20 86 18 98 10/10/18 07:43 121 H 34 H 81 L 10/10/18 07:30 121 H 24 H 92 L 10/10/18 07:15 97.2 F L 99 22 H 138/88 97 10/10/18 05:30 98 F 74 18 160/89 H 96 Weight Weight 245 lb 8 oz I&O: 10/09/18 10/10/18 10/11/18 06:59 06:59 06:59 Intake Total 1102 Balance 1102 Result Diagrams: 10/09/18 14:09 10/09/18 14:09 Phys Exam - Physical Examination Neck: no JVD tight wheezes Cardiovascular: RRR, no significant murmur Gastrointestinal: soft, positive bowel sounds Musculoskeletal: no edema Dx/Plan (1) Acute exacerbation of chronic obstructive pulmonary disease Code(s): J44.1 - CHRONIC OBSTRUCTIVE PULMONARY DISEASE W (ACUTE) EXACERBATION Status: Acute (2) Acute respiratory failure with hypoxia Code(s): J96.01 - ACUTE RESPIRATORY FAILURE WITH HYPOXIA Status: Acute (3) Anxiety Code(s): F41.9 - ANXIETY DISORDER, UNSPECIFIED Status: Chronic Comment: (4) DM2 (diabetes mellitus, type 2) Status: Chronic Qualifiers: Diabetes mellitus long term care phlebotomist insulin use: without residential use Chronic kidney disease stage: stage 2 (mild) (5) Depression Code(s): F32.9 - MAJOR DEPRESSIVE DISORDER, SINGLE EPISODE, UNSPECIFIED Status : Chronic Qualifiers: Depression Type: unspecified Qualified Code(s): F32.9 - Major depressive disorder, single episode, unspecified (6) GERD (gastroesophageal reflux disease) Code(s): K21.9 - GASTRO-ESOPHAGEAL REFLUX DISEASE WITHOUT ESOPHAGITIS Status: Chronic Qualifiers: Esophagitis presence: esophagitis presence not specified Qualified Code(s) : K21.9 - Gastro-esophageal reflux disease without esophagitis (7) [place] (obstructive sleep apnea) Code(s): G47.33 - OBSTRUCTIVE SLEEP APNEA (ADULT) (PEDIATRIC) Status: Chronic Comment: on home BiPAP - Plan cont O2 -: cont frequent nebs, steroids -: consult pulmonology -: BIPAP prn -: inpt, IMCU * .
[2018-10-10 17:54] LABS: #Lymphocytes 0.7 thou/uL (1.20-3.40); #Monocytes 0.9 thou/uL (0.11-0.59); #Neutrophils 11.8 thou/uL (1.40-6.50); %Basophils 0.2 % (0.0-1.0); %Eosinophils 0.1 % (0.0-10.0); %Lymphocytes 4.9 % (21.0-51.0); %Monocytes 6.3 % (0.0-10.0); %Neutrophils 88.5 % (42.0-75.0); Hemoglobin 14.6 g/dL (14.0-18.0); Mean Corpuscular HGB CONC 33.5 g/dL (32.0-36.0); Mean Corpuscular Hemoglobin 31.6 pg (27.0-31.0); Mean Corpuscular Volume 94.4 fL (78.0-98.0); Mean Platelet Volume 6.7 fL (7.4-10.4); Platelet Count 245 thou/uL (130-400); RBC Distribution Width 12.4 % (11.5-14.5); Red Blood Cell (RBC) Count 4.63 mill/uL (4.70-6.10); White Blood Cell (WBC) Count 13.4 thou/uL (4.8-10.8)
[2018-10-10] MEDS ORDERED: Magnesium 2 GM/50 ML 2 GM in Premix Bag 1 BAG IVPB SCH (18:00)
[2018-10-10] MEDS: Budesonide 0.5 MG/2 ML NEB INH SCH (18:04)
[2018-10-10 18:16] LABS: Anion Gap 15 mmol/L (10-20); BUN (Urea Nitrogen) 19 mg/dL (8.4-25.7); Calc. Creatinine Clearance 115 mL/min (70-130); Carbon Dioxide 17 mmol/L (23-31); Chloride 108 mmol/L (98-107); Estimated GFR-MDRD 72; Glucose 168 mg/dL (80-115); Potassium 4.1 mmol/L (3.5-5.1); Sodium 136 mmol/L (136-145)
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
[2018-10-10] MEDS ORDERED: cefTRIAXone\\ROCEPHIN 1 GM in Sodium Chloride 0.9% 100 ML IVPB SCH (18:45)
[2018-10-10] MEDS: cefTRIAXone\\ROCEPHIN 1 GM in Sodium Chloride 0.9% 100 ML IVPB SCH (20:10)
[2018-10-10 21:52] LABS: Lactic Acid 2.6 mmol/L (0.5-2.2)
[2018-10-11] MEDS: methylPREDNISolone Sod Succ 40 MG VIAL IVP SCH ×4 (05:53→23:29)
[2018-10-11] MEDS: Budesonide 0.5 MG/2 ML NEB INH SCH ×2 (06:54→18:35)
--- NOTE | 2018-10-11 08:47 | PRG ---
DATE OF SERVICE: 10/11/2018 SUBJECTIVE: This morning, he is still having difficulty breathing. OBJECTIVE: VITAL SIGNS: Saturations are 94%_ on BiPAP, respirations 17, pulse 56, temperature 97, blood pressure 180/67. CHEST: Reveals decreased breath sounds. Prolonged expiration with wheezing. CARDIAC: Normal S1, S2. No gallops. ABDOMEN: No masses. LABORATORY DATA: His lactic acid was slightly elevated down to 2.6. Chest x- ray was otherwise unremarkable. Lytes are normal. White count 13,000. ASSESSMENT: 1. End-stage chronic obstructive pulmonary disease exacerbation. 2. Bronchitis. 3. Asthma. 4. Obesity. 5. Major anxiety. PLAN: Will continue BiPAP as tolerated. Empiric antibiotics, neb treatments, and steroids on board. We will follow. Job ID: [id number] MTDD
[2018-10-11 09:05] LABS: Magnesium 2.2 mg/dL (1.6-2.6); Phosphorus 2.8 mg/dL (2.3-4.7)
[2018-10-11] MEDS: metFORMIN 500 MG TAB PO SCH (09:09)
[2018-10-11] MEDS: Doxycycline 100 MG CAP PO SCH ×2 (09:09→20:32)
[2018-10-11] MEDS: guaiFENesin ER 600 MG TAB PO SCH ×2 (09:09→20:32)
[2018-10-11] MEDS: Montelukast Sodium 10 mg Tablet PO SCH (09:09)
[2018-10-11] MEDS: Sodium Chloride 0.9% 1,000 ML IV SCH (12:33)
--- NOTE | 2018-10-11 15:56 | PDOC.HOSPP ---
- Subjective Subjective: f/u for COPD exacerbation on current BiPAP. Feels better overall. - Objective Vital Signs & Weight: Vital Signs (12 hours) Temp Pulse Resp Pulse Ox 10/11/18 15:17 97.6 F 10/11/18 14:51 76 17 10/11/18 10:50 98.0 F 10/11/18 10:16 91 19 10/11/18 08:00 92 L 10/11/18 07:29 97.2 F L 10/11/18 06:55 56 L 17 93 L 10/11/18 04:11 97.9 F Weight Weight 257 lb 15.053 oz Most Recent Monitor Data Heart Rate from ECG 78 NIBP 130/74 NIBP BP-Mean 92 Respiration from ECG 15 SpO2 94 I&O: 10/10/18 10/11/18 10/12/18 06:59 06:59 06:59 Intake Total 1102 1530 480 Balance 1102 1530 480 Result Diagrams: 10/10/18 17:44 10/10/18 17:44 EKG Reviewed by me: Yes (Tele - SR) ROS - Review of Systems All systems: All other ROS were reviewed and found negative. - Medication Medications: Active Medications Generic Name Dose Route Start Last Admin Trade Name Freq PRN Reason Stop Dose Admin Albuterol/Ipratropium 3 ml 10/10/18 10:30 10/11/18 14:51 Duoneb NEB 3 ml [id number] ORACIO Administration Albuterol/Ipratropium 3 ml 10/10/18 07:12 10/10/18 17:09 Duoneb NEB 3 ml Q2H PRN Administration SOB &/or Wheezing Budesonide 0.5 mg 10/10/18 18:30 10/11/18 06:54 Pulmicort Neb Solution INH 0.5 mg BID-RT ORACIO Administration Doxycycline Hyclate 100 mg 10/09/18 21:00 10/11/18 09:09 Vibramycin PO 100 mg BID ORACIO Administration Guaifenesin 600 mg 10/09/18 21:00 10/11/18 09:09 Mucinex PO 600 mg Q12HR ORACIO Administration Sodium Chloride 1,000 mls @ 50 mls/hr 10/10/18 18:45 10/11/18 12:33 Normal Saline 0.9% IV 1,000 mls INF ORACIO Administration Ceftriaxone Sodium 1 gm/ 100 mls @ 200 mls/hr 10/10/18 20:00 10/10/18 20:10 Sodium Chloride IVPB 100 mls Q24H ORACIO Administration Metformin HCl 500 mg 10/10/18 09:00 10/11/18 09:09 Glucophage PO 500 mg DAILY ORACIO Administration Methylprednisolone Sodium Succinate 40 mg 10/09/18 18:00 10/11/18 12:28 Solu-Medrol IVP 40 mg Q6HR ORACIO Administration Montelukast Sodium 10 mg 10/10/18 09:00 10/11/18 09:09 Singulair PO 10 mg DAILY ORACIO Administration Pantoprazole Sodium 40 mg 10/10/18 09:00 10/11/18 09:09 Protonix PO 40 mg DAILY ORACIO Administration Sertraline HCl 100 mg 10/10/18 09:00 10/11/18 09:09 Zoloft PO 100 mg DAILY ORACIO Administration - Exam NAD, awake alert Eye: PERRL, anicteric sclera ENT: normocephalic atraumatic, no oropharyngeal lesions Neck: supple, symmetric, no JVD, no lymphadenopathy Heart: RRR, no murmur, no gallops, no rubs Respiratory: CTAB, no wheezes, no rales, no ronchi Gastrointestinal: soft, non-tender, non-distended Extremities: no cyanosis, no clubbing, no edema Neurological: CN's grossly intact, normal sensation to touch, no new deficit Musculoskeletal: normal strength, no muscle wasting Psychiatric: normal behavior, A&O x 3 Hosp A/P (1) Acute exacerbation of chronic obstructive pulmonary disease Code(s): J44.1 - CHRONIC OBSTRUCTIVE PULMONARY DISEASE W (ACUTE) EXACERBATION Status: Acute Plan: Continue Solumedrol, Rocephin, Duonebs, BiPAP NIMV, Brovana and Pulmicort (2) Acute respiratory failure with hypoxia Code(s): J96.01 - ACUTE RESPIRATORY FAILURE WITH HYPOXIA Status: Acute Plan: See above in #1 (3) Anxiety Code(s): F41.9 - ANXIETY DISORDER, UNSPECIFIED Status: Chronic Plan: Continue Sertraline (4) DM2 (diabetes mellitus, type 2) Status: Chronic Qualifiers: Diabetes mellitus exterminator helper insulin use: without exterminator helper use Chronic kidney disease stage: stage 2 (mild) Plan: Labile due to steroids, continue Metformin - Plan continue antibiotics, social service technician, respiratory therapy, DVT proph w/SCDs Continue aggressive pulmonary support BiPAP NIMV Continue Solumedrol Consider Palliative care consult
[2018-10-11] MEDS: Arformoterol 15 MCG/2 ML NEB NEB SCH (18:35)
[2018-10-11] MEDS: cefTRIAXone\\ROCEPHIN 1 GM in Sodium Chloride 0.9% 100 ML IVPB SCH (20:33)
[2018-10-12] MEDS: methylPREDNISolone Sod Succ 40 MG VIAL IVP SCH ×3 (06:46→20:43)
[2018-10-12] MEDS: Arformoterol 15 MCG/2 ML NEB NEB SCH ×2 (07:08→18:11)
[2018-10-12] MEDS: Budesonide 0.5 MG/2 ML NEB INH SCH ×2 (07:08→18:11)
--- NOTE | 2018-10-12 08:41 | PRG ---
DATE OF SERVICE: 10/12/2018 SUBJECTIVE: This morning, he is doing well. Less shortness of breath. Less coughing. He is still on his BiPAP. Apparently, his home bi-level according to him is 07/03. He is on only 02/24 and tolerating it well and good tidal volume. OBJECTIVE: VITAL SIGNS: Saturations are 96% on 3 L, respirations 20, temperature 98, and blood pressure 150/85. CHEST: Decreased breath sounds. No wheezing. CARDIAC: Normal S1 and S2. No gallops. ABDOMEN: No masses. IMPRESSION: 1. Chronic obstructive pulmonary disease exacerbation. 2. Bronchitis. 3. Sleep apnea. PLAN: Try and use BiPAP mainly at nighttime if possible. Otherwise, continue supportive care, PT, pgoldie Martinez as tolerated. Job ID: [id number]
[2018-10-12] MEDS: guaiFENesin ER 600 MG TAB PO SCH ×2 (09:33→20:42)
[2018-10-12] MEDS: metFORMIN 500 MG TAB PO SCH (09:33)
[2018-10-12] MEDS: Montelukast Sodium 10 mg Tablet PO SCH (09:33)
[2018-10-12] MEDS: Doxycycline 100 MG CAP PO SCH ×2 (09:33→20:42)
--- NOTE | 2018-10-12 17:36 | PDOC.HOSPP ---
- Subjective Subjective: f/u for COPD exacerbation. Off BiPAP and maintaining saturations at baseline 3L/ min NC. Feels much better. - Objective Vital Signs & Weight: Vital Signs (12 hours) Temp Pulse Resp Pulse Ox 10/12/18 15:08 76 22 H 95 10/12/18 15:07 91 20 95 10/12/18 15:00 97.3 F L 10/12/18 12:00 92 L 10/12/18 10:53 75 20 94 L 10/12/18 08:00 93 L 10/12/18 07:07 72 20 96 10/12/18 07:02 98.2 F Weight Weight 259 lb 7.745 oz Most Recent Monitor Data Heart Rate from ECG 71 NIBP 136/78 NIBP BP-Mean 97 Respiration from ECG 18 SpO2 97 I&O: 10/11/18 10/12/18 10/13/18 06:59 06:59 06:59 Intake Total 1530 2134 Balance 1530 2134 Result Diagrams: 10/10/18 17:44 10/10/18 17:44 EKG Reviewed by me: Yes (Tele - SR) ROS - Review of Systems All systems: All other ROS were reviewed and found negative. - Medication Medications: Active Medications Generic Name Dose Route Start Last Admin Trade Name Freq PRN Reason Stop Dose Admin Albuterol/Ipratropium 3 ml 10/10/18 10:30 10/12/18 15:07 Duoneb NEB 3 ml [id number] ORACIO Administration Albuterol/Ipratropium 3 ml 10/10/18 07:12 10/10/18 17:09 Duoneb NEB 3 ml Q2H PRN Administration SOB &/or Wheezing Arformoterol Tartrate 15 mcg 10/11/18 18:30 10/12/18 07:08 Brovana NEB 15 mcg BID-RT ORACIO Administration Budesonide 0.5 mg 10/10/18 18:30 10/12/18 07:08 Pulmicort Neb Solution INH 0.5 mg BID-RT ORACIO Administration Doxycycline Hyclate 100 mg 10/09/18 21:00 10/12/18 09:33 Vibramycin PO 100 mg BID ORACIO Administration Guaifenesin 600 mg 10/09/18 21:00 10/12/18 09:33 Mucinex PO 600 mg Q12HR ORACIO Administration Sodium Chloride 1,000 mls @ 50 mls/hr 10/10/18 18:45 10/11/18 12:33 Normal Saline 0.9% IV 1,000 mls INF ORACIO Administration Ceftriaxone Sodium 1 gm/ 100 mls @ 200 mls/hr 10/10/18 20:00 10/11/18 20:33 Sodium Chloride IVPB 100 mls Q24H ORACIO Administration Metformin HCl 500 mg 10/10/18 09:00 10/12/18 09:33 Glucophage PO 500 mg DAILY ORACIO Administration Methylprednisolone Sodium Succinate 40 mg 10/09/18 18:00 10/12/18 12:11 Solu-Medrol IVP 40 mg Q6HR ORACIO Administration Montelukast Sodium 10 mg 10/10/18 09:00 10/12/18 09:33 Singulair PO 10 mg DAILY ORACIO Administration Pantoprazole Sodium 40 mg 10/10/18 09:00 10/12/18 09:33 Protonix PO 40 mg DAILY ORACIO Administration Sertraline HCl 100 mg 10/10/18 09:00 10/12/18 09:33 Zoloft PO 100 mg DAILY ORACIO Administration - Exam NAD, awake alert Eye: PERRL, anicteric sclera ENT: normocephalic atraumatic, no oropharyngeal lesions Neck: supple, symmetric, no JVD, no Thyromegaly Heart: RRR, no murmur, no gallops, no rubs Respiratory: no ronchi, normal chest expansion, no tachypnea, wheezes (mild exp wheezes) Gastrointestinal: soft, non-tender, non-distended, normal bowel sounds, no palpable masses Extremities: no cyanosis, no clubbing, no edema Skin: normal turgor, no lesions Neurological: CN's grossly intact, no focal deficits Psychiatric: normal behavior, A&O x 3 Hosp A/P (1) Acute exacerbation of chronic obstructive pulmonary disease Code(s): J44.1 - CHRONIC OBSTRUCTIVE PULMONARY DISEASE W (ACUTE) EXACERBATION Status: Acute Plan: Improved, continue Solumedrol, Duonebs, BiPAP nocturnally and PRN, Brovana, Pulmicort (2) Acute respiratory failure with hypoxia Code(s): J96.01 - ACUTE RESPIRATORY FAILURE WITH HYPOXIA Status: Acute Plan: Baseline 3L/min NC O2 currently (3) Anxiety Code(s): F41.9 - ANXIETY DISORDER, UNSPECIFIED Status: Chronic Plan: Continue Sertraline (4) DM2 (diabetes mellitus, type 2) Status: Chronic Qualifiers: Diabetes mellitus senior care insulin use: without senior care use Chronic kidney disease stage: stage 2 (mild) Plan: labile due to steroids - Plan continue antibiotics, social media executive, respiratory therapy, DVT proph w/SCDs Stable overall Continue aggressive pulmonary support BiPAP prn/nocturnally Convert to Prednisone in 24h OOB/ambulate Likely home in 24h
[2018-10-12] MEDS: cefTRIAXone\\ROCEPHIN 1 GM in Sodium Chloride 0.9% 100 ML IVPB SCH (20:57)
[2018-10-13] MEDS: methylPREDNISolone Sod Succ 40 MG VIAL IVP SCH ×4 (01:06→18:01)
[2018-10-13] MEDS: Sodium Chloride 0.9% 1,000 ML IV SCH (06:22)
[2018-10-13] MEDS: Arformoterol 15 MCG/2 ML NEB NEB SCH ×2 (07:07→18:34)
[2018-10-13] MEDS: Budesonide 0.5 MG/2 ML NEB INH SCH ×2 (07:07→18:35)
[2018-10-13] MEDS: guaiFENesin ER 600 MG TAB PO SCH ×2 (08:44→21:30)
[2018-10-13] MEDS: Doxycycline 100 MG CAP PO SCH ×2 (08:44→21:30)
[2018-10-13] MEDS: metFORMIN 500 MG TAB PO SCH (08:45)
[2018-10-13] MEDS: Montelukast Sodium 10 mg Tablet PO SCH (08:45)
--- NOTE | 2018-10-13 09:08 | PRG ---
DATE OF SERVICE: 10/13/2018 SUBJECTIVE: This morning, he is off his BiPAP. He is walking in the room without much distress. OBJECTIVE: VITAL SIGNS: Saturations are 97% on 3 L, temperature 97, blood pressure 130/70, respiratory rate 18. CHEST: Decreased breath sounds. No wheezing. Expiration is prolonged. CARDIAC: Sinus tach. ABDOMEN: Soft without any masses. IMPRESSION: Chronic obstructive pulmonary disease exacerbation, bronchitis, sleep apnea, obesity, major anxiety. All cultures are negative. We will deescalate his antibiotics. Continue steroids. Can be transferred to a medical floor. Job ID: [id number]
--- NOTE | 2018-10-13 15:42 | PDOC.HOSPP ---
- Subjective Subjective: f/u for COPD exacerbation. Feels better with some persistent coughing and using BiPAP nocturnally. - Objective Vital Signs & Weight: Vital Signs (12 hours) Temp Pulse Resp Pulse Ox 10/13/18 14:57 98.5 F 10/13/18 14:11 79 18 94 L 10/13/18 10:39 97.8 F 10/13/18 10:26 75 20 94 L 10/13/18 07:54 93 L 10/13/18 07:09 97.5 F L 54 L 19 93 L 10/13/18 07:07 55 L 17 93 L 10/13/18 07:06 55 L 17 93 L 10/13/18 04:00 98.9 F Weight Weight 259 lb 0.69 oz Most Recent Monitor Data Heart Rate from ECG 85 NIBP 155/86 NIBP BP-Mean 109 Respiration from ECG 23 SpO2 94 I&O: 10/12/18 10/13/18 10/14/18 06:59 06:59 06:59 Intake Total 2134 3432 Balance 2134 3432 Result Diagrams: 10/10/18 17:44 10/10/18 17:44 EKG Reviewed by me: Yes (Tele - SR) ROS - Review of Systems All systems: All other ROS were reviewed and found negative. - Medication Medications: Active Medications Generic Name Dose Route Start Last Admin Trade Name Freq PRN Reason Stop Dose Admin Albuterol/Ipratropium 3 ml 10/10/18 10:30 10/13/18 14:11 Duoneb NEB 3 ml [id number] ORACIO Administration Albuterol/Ipratropium 3 ml 10/10/18 07:12 10/10/18 17:09 Duoneb NEB 3 ml Q2H PRN Administration SOB &/or Wheezing Arformoterol Tartrate 15 mcg 10/11/18 18:30 10/13/18 07:07 Brovana NEB 15 mcg BID-RT ORACIO Administration Budesonide 0.5 mg 10/10/18 18:30 10/13/18 07:07 Pulmicort Neb Solution INH 0.5 mg BID-RT ORACIO Administration Doxycycline Hyclate 100 mg 10/09/18 21:00 10/13/18 08:44 Vibramycin PO 100 mg BID ORACIO Administration Guaifenesin 600 mg 10/09/18 21:00 10/13/18 08:44 Mucinex PO 600 mg Q12HR ORACIO Administration Sodium Chloride 1,000 mls @ 50 mls/hr 10/10/18 18:45 10/13/18 06:22 Normal Saline 0.9% IV 1,000 mls INF ORACIO Administration Metformin HCl 500 mg 10/10/18 09:00 10/13/18 08:45 Glucophage PO 500 mg DAILY ORACIO Administration Methylprednisolone Sodium Succinate 40 mg 10/09/18 18:00 10/13/18 11:41 Solu-Medrol IVP 40 mg Q6HR ORACIO Administration Montelukast Sodium 10 mg 10/10/18 09:00 10/13/18 08:45 Singulair PO 10 mg DAILY ORACIO Administration Pantoprazole Sodium 40 mg 10/10/18 09:00 10/13/18 08:45 Protonix PO 40 mg DAILY ORACIO Administration Sertraline HCl 100 mg 10/10/18 09:00 10/13/18 08:45 Zoloft PO 100 mg DAILY ORACIO Administration - Exam NAD, awake alert Eye: PERRL, anicteric sclera ENT: normocephalic atraumatic, no oropharyngeal lesions Neck: supple, symmetric, no JVD, no Thyromegaly, no lymphadenopathy Heart: RRR, no murmur, no gallops, no rubs Respiratory: normal chest expansion, rhonchi, wheezes Gastrointestinal: soft, non-tender, non-distended, normal bowel sounds Extremities: no cyanosis, no clubbing, no edema Skin: normal turgor, no lesions Neurological: CN's grossly intact, no focal deficits, no new deficit Psychiatric: normal behavior, A&O x 3 Hosp A/P (1) Acute exacerbation of chronic obstructive pulmonary disease Code(s): J44.1 - CHRONIC OBSTRUCTIVE PULMONARY DISEASE W (ACUTE) EXACERBATION Status: Acute Plan: Continue Duonebs, Solumedrol, Brovana, Pulmicort, PRN BiPAP, mucolytics (2) Acute respiratory failure with hypoxia Code(s): J96.01 - ACUTE RESPIRATORY FAILURE WITH HYPOXIA Status: Acute Plan: See above (3) Anxiety Code(s): F41.9 - ANXIETY DISORDER, UNSPECIFIED Status: Chronic (4) DM2 (diabetes mellitus, type 2) Status: Chronic Qualifiers: Diabetes mellitus remote computer terminal operator insulin use: without remote computer terminal operator use Chronic kidney disease stage: stage 2 (mild) Plan: ISS, Metformin, ADA - Plan continue antibiotics, PT/OT, social media editor, respiratory therapy, DVT proph w/ SCDs Stable currently Continue pulmonary support Continue Solumedrol Transitioned to Doxycycline Transfer to Medical floor BiPAP NIMV PRN
[2018-10-14] MEDS: methylPREDNISolone Sod Succ 40 MG VIAL IVP SCH ×4 (00:20→18:43)
[2018-10-14] MEDS: Budesonide 0.5 MG/2 ML NEB INH SCH ×2 (07:51→18:33)
[2018-10-14] MEDS: Arformoterol 15 MCG/2 ML NEB NEB SCH ×2 (07:51→18:33)
[2018-10-14] MEDS: Doxycycline 100 MG CAP PO SCH ×2 (08:06→21:53)
[2018-10-14] MEDS: metFORMIN 500 MG TAB PO SCH (08:06)
[2018-10-14] MEDS: Montelukast Sodium 10 mg Tablet PO SCH (08:06)
[2018-10-14] MEDS: guaiFENesin ER 600 MG TAB PO SCH ×2 (08:06→21:54)
--- NOTE | 2018-10-14 09:39 | PRG ---
DATE OF SERVICE: 10/14/2018 SUBJECTIVE: This morning, he is awake, alert, and responsive. He is better, still coughing and still wheezing. OBJECTIVE: VITAL SIGNS: Temperature 97, pulse 80, blood pressure 140/86, respirations 18. CHEST: Bilateral wheezing. CARDIAC: Normal S1 and S2. No gallops. ABDOMEN: No masses. ASSESSMENT: Chronic obstructive pulmonary disease exacerbation and bronchitis, improved. PLAN: We will continue present treatment. I am going to consider adding Daliresp to his regime. Job ID: [id number]
--- NOTE | 2018-10-14 16:36 | PDOC.HOSPP ---
- Subjective Subjective: f/u for COPD exacerbation. Feels better overall. Nocturnal BiPAP. - Objective Vital Signs & Weight: Vital Signs (12 hours) Temp Pulse Resp Pulse Ox 10/14/18 15:46 97.6 F 10/14/18 14:41 77 20 92 L 10/14/18 11:56 97.5 F L 10/14/18 11:22 94 18 95 10/14/18 08:02 97.6 F 10/14/18 08:00 90 L 10/14/18 07:52 88 L 10/14/18 07:50 80 15 10/14/18 04:59 97.6 F Weight Weight 259 lb 0.69 oz Most Recent Monitor Data Heart Rate from ECG 67 NIBP 147/83 NIBP BP-Mean 104 Respiration from ECG 15 SpO2 93 I&O: 10/13/18 10/14/18 10/15/18 06:59 06:59 06:59 Intake Total 3432 1584 Balance 3432 1584 Result Diagrams: 10/10/18 17:44 10/10/18 17:44 ROS - Review of Systems All systems: All other ROS were reviewed and found negative. - Medication Medications: Active Medications Generic Name Dose Route Start Last Admin Trade Name Freq PRN Reason Stop Dose Admin Albuterol/Ipratropium 3 ml 10/10/18 10:30 10/14/18 14:41 Duoneb NEB 3 ml [id number] ORACIO Administration Albuterol/Ipratropium 3 ml 10/10/18 07:12 10/10/18 17:09 Duoneb NEB 3 ml Q2H PRN Administration SOB &/or Wheezing Arformoterol Tartrate 15 mcg 10/11/18 18:30 10/14/18 07:51 Brovana NEB 15 mcg BID-RT ORACIO Administration Budesonide 0.5 mg 10/10/18 18:30 10/14/18 07:51 Pulmicort Neb Solution INH 0.5 mg BID-RT ORACIO Administration Doxycycline Hyclate 100 mg 10/09/18 21:00 10/14/18 08:06 Vibramycin PO 100 mg BID ORACIO Administration Guaifenesin 600 mg 10/09/18 21:00 10/14/18 08:06 Mucinex PO 600 mg Q12HR ORACIO Administration Sodium Chloride 1,000 mls @ 50 mls/hr 10/10/18 18:45 10/13/18 06:22 Normal Saline 0.9% IV 1,000 mls INF ORACIO Administration Metformin HCl 500 mg 10/10/18 09:00 10/14/18 08:06 Glucophage PO 500 mg DAILY ORACIO Administration Methylprednisolone Sodium Succinate 40 mg 10/09/18 18:00 10/14/18 12:10 Solu-Medrol IVP 40 mg Q6HR ORACIO Administration Montelukast Sodium 10 mg 10/10/18 09:00 10/14/18 08:06 Singulair PO 10 mg DAILY ORACIO Administration Pantoprazole Sodium 40 mg 10/10/18 09:00 10/14/18 08:06 Protonix PO 40 mg DAILY ORACIO Administration Sertraline HCl 100 mg 10/10/18 09:00 10/14/18 08:06 Zoloft PO 100 mg DAILY ORACIO Administration - Exam NAD, awake alert Eye: PERRL, anicteric sclera ENT: normocephalic atraumatic, no oropharyngeal lesions Neck: supple, symmetric, no JVD, no Thyromegaly Heart: RRR, no murmur, no gallops, no rubs Respiratory: rhonchi, wheezes (few scattered exp wheezes and rhonchi) Gastrointestinal: soft, non-tender, non-distended, normal bowel sounds Extremities: no cyanosis, no clubbing, no edema Neurological: CN's grossly intact, no focal deficits, no new deficit Musculoskeletal: normal tone, normal strength Psychiatric: normal behavior, A&O x 3 Hosp A/P (1) Acute exacerbation of chronic obstructive pulmonary disease Code(s): J44.1 - CHRONIC OBSTRUCTIVE PULMONARY DISEASE W (ACUTE) EXACERBATION Status: Acute Plan: Continue pulmonary support, Duonebs, Pulmicort, Brovana, Solumedrol with nocturnal BiPAP (2) Acute respiratory failure with hypoxia Code(s): J96.01 - ACUTE RESPIRATORY FAILURE WITH HYPOXIA Status: Acute Plan: See above in #1 (3) Anxiety Code(s): F41.9 - ANXIETY DISORDER, UNSPECIFIED Status: Chronic Plan: Continue Sertraline (4) DM2 (diabetes mellitus, type 2) Status: Chronic Qualifiers: Diabetes mellitus correction insulin use: without terminal manager use Chronic kidney disease stage: stage 2 (mild) Plan: Continue Metformin, labile due to steroids - Plan continue antibiotics, out of bed/ambulate Stable currently Continue pulmonary support OOB/ambulate Nocturnal BiPAP Wean off Solumedrol Likely home in 24-48h
[2018-10-15] MEDS: methylPREDNISolone Sod Succ 40 MG VIAL IVP SCH ×2 (00:23→06:31)
[2018-10-15 02:37] VITALS: BP 136/83
[2018-10-15] MEDS: Budesonide 0.5 MG/2 ML NEB INH SCH (07:50)
[2018-10-15] MEDS: Arformoterol 15 MCG/2 ML NEB NEB SCH (07:50)
[2018-10-15] MEDS: Doxycycline 100 MG CAP PO SCH (08:57)
[2018-10-15] MEDS: guaiFENesin ER 600 MG TAB PO SCH (08:57)
[2018-10-15] MEDS: metFORMIN 500 MG TAB PO SCH (08:58)
[2018-10-15] MEDS: Montelukast Sodium 10 mg Tablet PO SCH (08:58)
--- NOTE | 2018-10-15 10:52 | PRG ---
DATE OF SERVICE: 10/15/2018 SUBJECTIVE: This morning, he is better, less short of breath, and less coughing. He is eager to go home. We are going to make some adjustments. New medicine, Daliresp 500 mg once a day and his BiPAP settings is 12/6 with a rate of 10, 30% FiO2 to which he likes. Otherwise, he is still on his Brovana and Pulmicort twice a day. His prednisone, he is getting 40 a day to be tapered because of several days. Follow up with his primary care physician. Can follow up in our office if needed. OBJECTIVE: VITAL SIGNS: Blood pressure 130/75, saturations 95%, respiratory rate 16, and pulse 80. CHEST: Very minimal wheezing. CARDIAC: Normal S1 and S2. No gallops. ABDOMEN: Soft. IMPRESSION AND PLAN: End-stage chronic obstructive pulmonary disease and sleep apnea. Disposition home. Job ID: [id number]
[2018-10-15 11:15] VITALS: TEMP 97.8
[2018-10-16] MEDS ORDERED: predniSONE 20 MG TAB PO SCH (08:00)
--- NOTE | 2018-10-17 07:03 | DIS ---
DATE OF ADMISSION: 10/09/2018 DATE OF DISCHARGE: 10/15/2018 DISCHARGE DIAGNOSES: 1. Chronic obstructive pulmonary disease exacerbation. 2. Diabetes mellitus. 3. Chronic kidney disease stage 2. 4. Obstructive sleep apnea. 5. Obesity with BMI of 38.3. HISTORY OF PRESENT ILLNESS: This patient is a 63-year-old male with a history of tobacco abuse and related COPD, who is no longer smoking. However, he continues to have some COPD exacerbation. This patient initially presented with increasing shortness of breath to the emergency department. He had still been on a prednisone taper and had no evidence of underlying infection. HOSPITAL COURSE: The patient was admitted to the hospital, and started on IV steroids, p.o. doxycycline, nebulizer treatments, and supplemental oxygen, and he was continued on his usual diabetic medications. The following day, the patient had several episodes of increased symptomatic dyspnea and he was transferred to the [facility] where he was seen in consultation by Dr. Pedroza who also happens to be the patient 's primary socket puller on an outpatient basis as well. He had some magnesium and Pulmicort and continue other therapies. Ultimately, over several days, the patient's symptoms improved. He was weaned off the steroids and oxygenation remained stable until he was felt to be stable for discharge to home. PHYSICAL EXAMINATION: VITAL SIGNS: On the day of discharge, temperature is 97.8, pulse 82, respirations 20, O2 saturation 92% on room air. GENERAL: He is awake, alert, oriented, pleasant, and cooperative. HEART: Regular rate and rhythm without murmurs, gallops, or rubs. LUNGS: Diminished with very minimal scattered rales and wheezes, but fair air exchange. ABDOMEN: Obese, soft, nontender, and nondistended. EXTREMITIES: No cyanosis, clubbing, or edema. DISPOSITION: The patient is discharged home in stable condition. ACTIVITIES: As tolerated. DIET: He will stay on a diabetic diet. MEDICATIONS: Include; 1. Prednisone 20 mg b.i.d. for two days, then one p.o. daily for 3 days. 2. He will be on Daliresp 250 mcg daily. He will continue with, 1. Zoloft. 2. Singulair. 3. Meclizine. 4. Glucophage. 5. Ventolin nebulizers. 6. Dexilant. 7. Guaifenesin. He will discontinue his 5 mg prednisone dose. FOLLOWUP: He will follow up with his PCP as well as Dr. Pedroza and he can return to the hospital should he have any problems prior to the time of his followup. Time spent in discharge activities, including face to face time with the patient was 31 minutes. Job ID: [id number] MTDD
== END 2018-10-15 15:21 | disposition home or self-care (01) | DRG 189 ==
LOC: ERS 13:44 → 2SW 16:59 → OBSVTOIN 16:59 → IMCU/EMU 10-10 17:47
PROVIDERS: ADMIT Internal Medicine; ATTEND Internal Medicine
PROC: 5A09457 Assistance with Respiratory Ventilation, 24-96 Consecutive Hours, Continuous Positive Airway Pressure (ICD-10-PCS; principal; 2018-10-09)
DX: J96.01 Acute respiratory failure with hypoxia (principal); J44.1 Chronic obstructive pulmonary disease with (acute) exacerbation; G47.33 Obstructive sleep apnea (adult) (pediatric); E11.22 Type 2 diabetes mellitus with diabetic chronic kidney disease; N18.2 Chronic kidney disease, stage 2 (mild); I12.9 Hypertensive chronic kidney disease with stage 1 through stage 4 chronic kidney disease, or unspecified chronic kidney disease; K21.9 Gastro-esophageal reflux disease without esophagitis; F41.9 Anxiety disorder, unspecified; F32.9 Major depressive disorder, single episode, unspecified; E66.01 Morbid (severe) obesity due to excess calories; Z88.1 Allergy status to other antibiotic agents; Z79.52 Long term (current) use of systemic steroids; Z68.38 Body mass index [BMI] 38.0-38.9, adult; Z99.89 Dependence on other enabling machines and devices; Z91.030 Bee allergy status; Z87.891 Personal history of nicotine dependence; Z79.84 Long term (current) use of oral hypoglycemic drugs; Z87.01 Personal history of pneumonia (recurrent)
CPT/HCPCS: 36415; 71045; 80048; 80053; 82805; 83605; 83735; 83880; 84100; 85025; 93005; 94640; 94644; 94660; 96374; J0696; J2920; J2930; J3475; J3490; J7611; J7620; J7626

== ENCOUNTER 2018-12-31 09:03 | Emergency (ER) | payer OTHER ==
[2018-12-31 09:43] LABS: Analyzer IN Cardio ER; Base Excess (BEa) -4.1 mEq/L (-2.0 to +3.0); Calcium, Ionized 1.15 mmol/L (1.12-1.30); Carboxyhemoglobin (COHb) 0.2 gm% (0.0-3.0); Hemoglobin (Hb) 14.9 g/dL (14.0-18.0); O2 Tension (PaO2) 145.9 mmHg (> 80.0); Potassium - ABG Lab 3.16 mmol/L (3.70-5.30); pH, Arterial 7.46 (7.35-7.45)
[2018-12-31 09:44] LABS: CO2 Tension 25.9 mmHg (35.0-45.0); Puncture Site RR
[2018-12-31 09:45] LABS: ALV-art Gradient 35.625 (0-20)
[2018-12-31] MEDS ORDERED: methylPREDNISolone Sod Succ/PF 125 MG/2 ML VIAL ONE (09:46)
[2018-12-31 09:59] LABS: #Eosinphils 0.4 thou/uL (0.0-0.7); #Lymphocytes 1.9 thou/uL (1.20-3.40); #Monocytes 0.6 thou/uL (0.11-0.59); %Basophils 0.5 % (0.0-1.0); %Eosinophils 4.6 % (0.0-10.0); %Lymphocytes 23.8 % (21.0-51.0); %Monocytes 7.8 % (0.0-10.0); %Neutrophils 63.3 % (42.0-75.0); Hemoglobin 14.5 g/dL (14.0-18.0); Mean Corpuscular HGB CONC 35.6 g/dL (32.0-36.0); Mean Corpuscular Hemoglobin 32.7 pg (27.0-31.0); Mean Corpuscular Volume 91.8 fL (78.0-98.0); Mean Platelet Volume 6.6 fL (7.4-10.4); Platelet Count 255 thou/uL (130-400); RBC Distribution Width 11.9 % (11.5-14.5); Red Blood Cell (RBC) Count 4.45 mill/uL (4.70-6.10); White Blood Cell (WBC) Count 7.9 thou/uL (4.8-10.8)
[2018-12-31 10:15] LABS: ALT (SGPT) 20 U/L (8-55); AST (SGOT) 14 U/L (5-34); Albumin 3.9 g/dL (3.4-4.8); Alkaline Phosphatase 94 U/L (40-110); Anion Gap 15 mmol/L (10-20); BUN (Urea Nitrogen) 11 mg/dL (8.4-25.7); Bilirubin, Total 0.6 mg/dL (0.2-1.2); Calc. Creatinine Clearance 0 mL/min (70-130); Calcium 8.8 mg/dL (7.8-10.44); Carbon Dioxide 20 mmol/L (23-31); Chloride 106 mmol/L (98-107); Estimated GFR-MDRD 82; Globulin 2.2 g/dL (2.4-3.5); Glucose 143 mg/dL (80-115); Potassium 3.2 mmol/L (3.5-5.1); Protein, Total 6.1 g/dL (5.8-8.1); Sodium 138 mmol/L (136-145)
--- NOTE | 2018-12-31 11:47 | RAD ---
PORTABLE CHEST ONE VIEW: 12/31/2018 9:16 a.m. HISTORY: Dyspnea. COMPARISON: 10/09/2018 FINDINGS: The heart size is borderline. There is clouding at the left costophrenic angle. No lobar consolidatio n, pneumothoraces, brooke pulmonary edema or large effusions are seen. IMPRESSION: No acute process. POS: ROBER
== END 2018-12-31 13:57 | disposition home or self-care (01) ==
LOC: ERS 09:03
DX: J44.1 Chronic obstructive pulmonary disease with (acute) exacerbation (principal); E10.9 Type 1 diabetes mellitus without complications; F41.9 Anxiety disorder, unspecified; Z87.891 Personal history of nicotine dependence; Z87.01 Personal history of pneumonia (recurrent); Z79.84 Long term (current) use of oral hypoglycemic drugs; Z79.899 Other long term (current) drug therapy
CPT/HCPCS: 36415; 71045; 80053; 82805; 83880; 84484; 85025; 85379; 93005; 94640; 94660; 96374; J2930; J7620

== ENCOUNTER 2019-01-20 11:25 | Inpatient (IN) | payer OTHER ==
[2019-01-20] MEDS ORDERED: Albuterol Sulfate 2.5 mg/0.5 ml Neb ONE ×4 (11:50→13:42)
[2019-01-20] MEDS ORDERED: Dexamethasone 10 MG/ML VIAL ONE (12:04)
[2019-01-20] MEDS ORDERED: Magnesium 2 GM/50 ML BAG (IN WATER) ONE (12:04)
[2019-01-20 12:06] LABS: Analyzer IN Cardio ER; Base Excess (BEa) -0.8 mEq/L (-2.0 to +3.0); CO2 Tension 35.4 mmHg (35.0-45.0); Calcium, Ionized 1.17 mmol/L (1.12-1.30); Carboxyhemoglobin (COHb) 0.2 gm% (0.0-3.0); O2 Tension (PaO2) 78.8 mmHg (> 80.0); Potassium - ABG Lab 3.81 mmol/L (3.70-5.30); Puncture Site LRA; pH, Arterial 7.43 (7.35-7.45)
[2019-01-20 12:22] LABS: #Eosinphils 0.4 thou/uL (0.0-0.7); #Lymphocytes 1.7 thou/uL (1.20-3.40); #Monocytes 0.6 thou/uL (0.11-0.59); %Basophils 0.6 % (0.0-1.0); %Lymphocytes 21.2 % (21.0-51.0); %Monocytes 8.2 % (0.0-10.0); %Neutrophils 64.9 % (42.0-75.0); Hemoglobin 14.5 g/dL (14.0-18.0); Mean Corpuscular HGB CONC 35.1 g/dL (32.0-36.0); Mean Corpuscular Hemoglobin 32.6 pg (27.0-31.0); Mean Corpuscular Volume 92.9 fL (78.0-98.0); Mean Platelet Volume 6.5 fL (7.4-10.4); Platelet Count 222 thou/uL (130-400); RBC Distribution Width 11.7 % (11.5-14.5); Red Blood Cell (RBC) Count 4.45 mill/uL (4.70-6.10); White Blood Cell (WBC) Count 7.8 thou/uL (4.8-10.8)
[2019-01-20 12:36] LABS: ALT (SGPT) 31 U/L (8-55); AST (SGOT) 17 U/L (5-34); Albumin 3.7 g/dL (3.4-4.8); Alkaline Phosphatase 99 U/L (40-110); Anion Gap 17 mmol/L (10-20); BUN (Urea Nitrogen) 14 mg/dL (8.4-25.7); Bilirubin, Total 0.9 mg/dL (0.2-1.2); CK (CPK) 122 U/L (30-200); Calc. Creatinine Clearance 0 mL/min (70-130); Carbon Dioxide 19 mmol/L (23-31); Chloride 105 mmol/L (98-107); Estimated GFR-MDRD 78; Globulin 2.8 g/dL (2.4-3.5); Glucose 159 mg/dL (80-115); Lipase 33 U/L (8-78); Potassium 3.9 mmol/L (3.5-5.1); Protein, Total 6.5 g/dL (5.8-8.1); Sodium 137 mmol/L (136-145)
[2019-01-20] MEDS ORDERED: cefTRIAXone\\ROCEPHIN 2 GM VIAL ONE (13:38)
[2019-01-20] MEDS ORDERED: Azithromycin 500 MG VIAL ONE (14:18)
[2019-01-20] MEDS ORDERED: Ondansetron PF 4 MG/2 ML Vial IVP PRN (15:40)
[2019-01-20] MEDS ORDERED: Ondansetron ODT 4 MG TAB SL PRN (15:40)
[2019-01-20] MEDS ORDERED: Sodium Chloride 0.9% 1,000 ML IV SCH (15:40)
[2019-01-20 15:50] VITALS: BMI 38.2
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
[2019-01-20] MEDS ORDERED: Acetaminophen 325 MG TAB PO PRN (18:55)
[2019-01-20] MEDS ORDERED: Senokot S 8.6-50 MG TAB PO PRN (18:55)
[2019-01-20] MEDS ORDERED: Dextrose 5% in Water 1,000 ML IV PRN (19:00)
[2019-01-20] MEDS ORDERED: Dextrose 50% Abboject 50 ML SYRINGE SLOW IVP PRN (19:00)
[2019-01-20] MEDS ORDERED: Meclizine HCl 25 MG TAB PO PRN (19:03)
[2019-01-20] MEDS: Montelukast Sodium 10 mg Tablet PO SCH (20:04)
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
[2019-01-20] MEDS ORDERED: Famotidine 20 MG TAB PO SCH (21:00)
[2019-01-20] MEDS ORDERED: Dexamethasone 4 mg/ml Vial SLOW IVP SCH (21:00)
[2019-01-20] MEDS: methylPREDNISolone Sod Succ 40 MG VIAL IVP SCH (23:44)
[2019-01-21] MEDS: HumaLOG 300 UNITS/3 ML VIAL SC PRN ×4 (05:20→20:25)
[2019-01-21] MEDS: methylPREDNISolone Sod Succ 40 MG VIAL IVP SCH ×3 (05:20→17:58)
[2019-01-21] MEDS: Enoxaparin Sodium 40 MG/0.4 ML SYRINGE SC SCH (07:54)
[2019-01-21 08:30] LABS: #Lymphocytes 0.6 thou/uL (1.20-3.40); #Monocytes 0.2 thou/uL (0.11-0.59); %Basophils 0.2 % (0.0-1.0); %Eosinophils 0.3 % (0.0-10.0); %Lymphocytes 7.3 % (21.0-51.0); %Monocytes 2.9 % (0.0-10.0); %Neutrophils 89.3 % (42.0-75.0); Hemoglobin 14.7 g/dL (14.0-18.0); Mean Corpuscular HGB CONC 34.8 g/dL (32.0-36.0); Mean Corpuscular Hemoglobin 32.2 pg (27.0-31.0); Mean Corpuscular Volume 92.4 fL (78.0-98.0); Mean Platelet Volume 6.6 fL (7.4-10.4); Platelet Count 251 thou/uL (130-400); RBC Distribution Width 11.8 % (11.5-14.5); Red Blood Cell (RBC) Count 4.56 mill/uL (4.70-6.10); White Blood Cell (WBC) Count 7.8 thou/uL (4.8-10.8)
[2019-01-21 08:52] LABS: ALT (SGPT) 30 U/L (8-55); AST (SGOT) 13 U/L (5-34); Albumin 4.1 g/dL (3.4-4.8); Alkaline Phosphatase 111 U/L (40-110); Anion Gap 17 mmol/L (10-20); BUN (Urea Nitrogen) 14 mg/dL (8.4-25.7); Bilirubin, Total 0.6 mg/dL (0.2-1.2); Calc. Creatinine Clearance 109 mL/min (70-130); Calcium 9.1 mg/dL (7.8-10.44); Carbon Dioxide 17 mmol/L (23-31); Chloride 107 mmol/L (98-107); Estimated GFR-MDRD 65; Glucose 359 mg/dL (80-115); Protein, Total 7.1 g/dL (5.8-8.1); Sodium 137 mmol/L (136-145)
[2019-01-21] MEDS ORDERED: (Roflumilast [Daliresp] 250 MCG) PO SCH (09:00)
[2019-01-21] MEDS ORDERED: Non-Formulary Item 1 EACH (Tiotropium Bromide [Spiriva] 18 MCG) IH SCH (09:00)
--- NOTE | 2019-01-21 13:28 | CON ---
DATE OF CONSULTATION: 01/21/2019 REASON FOR CONSULTATION: COPD exacerbation. HISTORY OF PRESENT ILLNESS: The patient is a 63-year-old male, who is followed by my partner, Dr. Pedroza. He was doing okay until he woke up yesterday with shortness of breath and chest tightness. He has improved almost instantaneously upon receiving IV steroids. He says he thinks he needs to stay in the hospital one more day, but overall he feels back to his baseline and wants to go home. PAST MEDICAL HISTORY: 1. COPD. 2. REMINGTON, requiring CPAP. 3. Diabetes mellitus, type 2. 4. Chronic kidney disease. 5. Obesity. 6. Central retinal hemorrhage. PAST SURGICAL HISTORY: 1. He has had a tracheostomy. 2. Left-sided chest tube. SOCIAL HISTORY: Quit smoking in 2013 after smoking 40 pack years. Does not consume alcohol. FAMILY MEDICAL HISTORY: Remarkable for cancer. MEDICATIONS: Prior to admission; 1. Albuterol. 2. Dexilant. 3. Flonase. 4. Guaifenesin. 5. Meclizine. 6. Metformin. 7. Singulair. 8. Prednisone 5 mg daily. 9. Spiriva. 10. Daliresp. 11. Zoloft. REVIEW OF SYSTEMS: Twelve-point review of systems is otherwise negative. PHYSICAL EXAMINATION: VITAL SIGNS: Temperature 98.1, pulse 92, respirations 16, O2 saturation 96%, and blood pressure 156/94. GENERAL: He is awake, alert, in no distress. HEENT: Remarkable for alopecia. NECK: No adenopathy or JVD. LUNGS: Clear without wheezing or rhonchi. He does have a prominent cough. CARDIAC: S1 and S2 regular without murmur. ABDOMEN: Obese, soft, nontender, and nondistended. EXTREMITIES: No clubbing, cyanosis, or edema. NEUROLOGIC: Nonfocal. SKIN: Shows old tracheostomy scar. LABORATORY DATA: White blood cell count 7.8, hematocrit 42.1, and platelet count 251. PH of 7.43, pCO2 of 35, and pO2 of 78. Sodium 137, potassium 4, chloride 107, CO2 of 17, BUN is 14, creatinine 1.1, and glucose 359. IMAGING DATA: Chest x-ray reviewed by myself personally shows no evidence of mass, effusion, or infiltrate. ASSESSMENT: Chronic obstructive pulmonary disease exacerbation that I would characterize as mild at this point. PLAN: As soon as practical, I would cycle him over to oral antibiotics and oral steroids. He continues outpatient medications. I would agree that he would be stable for discharge by tomorrow. Job ID: [id number]
[2019-01-21] MEDS ORDERED: cefTRIAXone\\ROCEPHIN 2 GM in Sodium Chloride 0.9% 100 ML IVPB SCH (14:00)
--- NOTE | 2019-01-21 14:41 | PDOC.HOSPP ---
- Subjective Subjective: Doing much better today. Breathing comfortably. Believes it was the weather change that go him sick this time. - Objective Vital Signs & Weight: Vital Signs (12 hours) Temp Pulse Resp BP Pulse Ox 01/21/19 11:35 98.1 F 92 16 156/94 H 96 01/21/19 10:55 85 18 98 01/21/19 08:00 95 01/21/19 07:31 97.5 F L 92 18 148/81 H 95 01/21/19 07:04 87 20 93 L 01/21/19 04:00 97.8 F 93 18 137/80 95 Weight Weight 252 lb Result Diagrams: 01/21/19 07:54 01/21/19 07:54 Additional Labs: Accuchecks 01/21/19 01/21/19 11:38 04:35 POC Glucose 288 H 312 H Hospitalist ROS - Medication Medications: Active Medications Generic Name Dose Route Start Last Admin Trade Name Freq PRN Reason Stop Dose Admin Albuterol/Ipratropium 3 ml 01/20/19 22:30 01/21/19 10:55 Duoneb NEB 3 ml [id number] ORACIO Administration Enoxaparin Sodium 40 mg 01/21/19 09:00 01/21/19 07:54 Lovenox SC 40 mg 0900 ORACIO Administration Insulin Human Lispro 0 units 01/20/19 19:00 01/21/19 12:43 Humalog SC 4 unit .MILD SLIDING SCALE PRN Administration Mild Correctional Scale Methylprednisolone Sodium Succinate 40 mg 01/20/19 23:59 01/21/19 11:58 Solu-Medrol IVP 40 mg Q6HR ORACIO Administration Montelukast Sodium 10 mg 01/20/19 21:00 01/20/19 20:04 Singulair PO 10 mg HS ORACIO Administration Pantoprazole Sodium 40 mg 01/20/19 21:00 01/20/19 20:04 Protonix PO 40 mg HS ORACIO Administration Sertraline HCl 100 mg 01/21/19 09:00 01/21/19 07:54 Zoloft PO 100 mg DAILY ORACIO Administration - Exam General Appearance: NAD, awake alert General - other findings: Obese. Heart: RRR, no murmur, no gallops, no rubs, normal peripheral pulses Respiratory: CTAB, no wheezes, no rales, no ronchi, normal chest expansion, no tachypnea, normal percussion Gastrointestinal: soft, non-tender, non-distended, normal bowel sounds, no palpable masses, no hepatomegaly, no splenomegaly, no bruit Skin: normal turgor, no lesions, no rashes Musculoskeletal: normal tone, normal strength, no muscle wasting Psychiatric: normal affect, normal behavior, A&O x 3 Hosp A/P (1) Acute respiratory failure with hypoxia Code(s): J96.01 - ACUTE RESPIRATORY FAILURE WITH HYPOXIA Status: Acute (2) COPD exacerbation Code(s): J44.1 - CHRONIC OBSTRUCTIVE PULMONARY DISEASE W (ACUTE) EXACERBATION Status: Acute (3) Obesity (BMI 30-39.9) Code(s): E66.9 - OBESITY, UNSPECIFIED Status: Chronic (4) Diabetes mellitus Code(s): E11.9 - TYPE 2 DIABETES MELLITUS WITHOUT COMPLICATIONS Status: Acute - Plan Seems to be much better already. He has a history of these very abrupt changes for the worse and the better. Given that lability, will keep him one more day on current treatment. Anticipate discharge in am. Blood sugars running high from the steroids. Will stop the steroids this evening.
[2019-01-21] MEDS ORDERED: Azithromycin 500 MG in Sodium Chloride 0.9% 250 ML 250 ML IVPB SCH (15:00)
[2019-01-21] MEDS: Montelukast Sodium 10 mg Tablet PO SCH (20:25)
[2019-01-22] MEDS: HumaLOG 300 UNITS/3 ML VIAL SC PRN (06:22)
[2019-01-22 07:32] VITALS: BP 130/75; TEMP 97.5
[2019-01-22] MEDS: Enoxaparin Sodium 40 MG/0.4 ML SYRINGE SC SCH (08:50)
--- NOTE | 2019-01-23 05:27 | DIS ---
DATE OF ADMISSION: 01/20/2019 DATE OF DISCHARGE: 01/22/2019 DISCHARGE DIAGNOSES: 1. Chronic obstructive pulmonary disease exacerbation. 2. Diabetes with hyperglycemia. 3. History of reflux. 4. Obesity with a BMI of 38. INDICATIONS FOR PROCEDURE: This patient is a 63-year-old male with a known history of COPD with fairly rapid onset exacerbations. The patient had awakened on the day of admission, feeling acutely short of breath. He felt that it was related to weather changes. He had no significant productive cough and had no ill exposures. He was admitted to the hospital, started on steroids, nebulizer treatments, Rocephin, and azithromycin. His blood sugars increased with the steroids. However, his breathing improved very quickly and was already sounding much better by the following day. He was seen in consultation by Dr. Smith, who agreed with the treatment plan. The steroids were stopped that evening due to the hyperglycemia. He continued to feel well by the following day and his exam remains improved. PHYSICAL EXAMINATION: On the day of discharge, VITAL SIGNS: Temperature is 97.5, pulse 68, respirations 16, O2 saturation 96% on room air, BP 130/75. GENERAL: He was awake and alert. HEART: Regular rate and rhythm. LUNGS: Clear with the exception of the very minimal wheeze heard at the bases bilaterally at end-expiration. ABDOMEN: Soft, nontender, and nondistended with positive bowel sounds. EXTREMITIES: No cyanosis, clubbing, or edema. DISPOSITION: The patient is discharged to home. ACTIVITY: As tolerated. He will stay on a diabetic diet. DISCHARGE MEDICATIONS: 1. He will be on prednisone 20 mg daily for 3 days and doxycycline 100 mg b.i.d. 2. He will double his metformin to 1000 mg a day for the days he is staying on the steroids. Otherwise, he will continue with, 1. Sertraline. 2. Montelukast. 3. Meclizine. 4. Albuterol. 5. Dexilant. 6. Guaifenesin. 7. Daliresp. 8. Spiriva. 9. Flonase. FOLLOWUP: He is to follow up with his primary care provider, sounds like he is establishing with someone new this week and he should follow up with Dr. Pedroza who is his primary labor utilization superintendent and he can return to the hospital should he have any need to do so. Time spent in discharge activities was 35 min. Job ID: [id number] MTDD
[2019-01-23] MEDS ORDERED: metFORMIN 500 MG TAB PO SCH (08:00)
--- NOTE | 2019-01-24 09:36 | PQF ---
ISAIAS MANCILLA DAVID R MD [id number] CLINICAL DOCUMENTATION CLARIFICATION FORM: POST DISCHARGE Addendum to original discharge summary date: ____ Late entry note date: __ DATE:01/24/2019 ATTN:MARGARITA CEDEÑO MD Please exercise your independent, professional judgment in responding to the clarification form. Clinical indicators are provided on the bottom of this form for your review Diagnosis: Acute respiratory failure with hypoxia Present on Admission (POA): [ x ] Yes [ ] No [ ] Unable to determine Coding guidelines require hospitals to identify whether a diagnosis was present on admission (POA) or not. To accurately assign the appropriate POA indicator, this information must be clearly documented within the medical record. CLINICAL INDICATORS - SIGNS / SYMPTOMS / LABS Resp-20 -Documented in ED on 01/20 by Gabby Miles Shortness of breath-Documented in H&P on 01/20 by Vanita Jackson Chronic obstructive pulmonary disease exacerabation-Documented in H&P on 01/20 by Vanita Jackson Pulse [id number] in Hospitalist progress note on 01/21 by Christie Cano Acute respiratory failure with hypoxia-Documented in Hospitalist progress note on 01/21 by Christie Cano RISK FACTORS: Chronic obstructive pulmonary disease exacerabation-Documented in H&P on 01/20 by Vanita Jackson TREATMENT: Bi-PAP- doucemented in clinical panels [employer] Winform Viewer (This form is maintained as a part of the permanent medical record) 2014 [employer]. All Rights Reserved [email or web address] [not provided] MTDD
== END 2019-01-22 12:33 | disposition home or self-care (01) | DRG 190 ==
LOC: ERS 11:25 → T4-B 13:48
PROVIDERS: ADMIT Internal Medicine; ATTEND Internal Medicine
DX: J44.1 Chronic obstructive pulmonary disease with (acute) exacerbation (principal); J96.01 Acute respiratory failure with hypoxia; G47.33 Obstructive sleep apnea (adult) (pediatric); Z87.891 Personal history of nicotine dependence; K21.9 Gastro-esophageal reflux disease without esophagitis; I25.10 Atherosclerotic heart disease of native coronary artery without angina pectoris; E66.9 Obesity, unspecified; Z68.38 Body mass index [BMI] 38.0-38.9, adult; E11.65 Type 2 diabetes mellitus with hyperglycemia
CPT/HCPCS: 36415; 36416; 71045; 80053; 82550; 82805; 83690; 83880; 84484; 85025; 87040; 93005; 94640; 94644; 94660; 94760; 96361; 96365; 96367; 96375; J0456; J0696; J1100; J1650; J2920; J3475; J3490; J7050; J7611; J7620

== ENCOUNTER 2019-04-01 01:43 | Emergency (ER) | payer MEDICARE, OTHER, SELFPAY ==
[2019-04-01] MEDS ORDERED: methylPREDNISolone Sod Succ/PF 125 MG/2 ML VIAL ONE (02:01)
[2019-04-01 02:04] LABS: #Basophils 0.1 thou/uL (0.0-0.2); #Eosinphils 0.6 thou/uL (0.0-0.7); #Lymphocytes 2.1 thou/uL (1.20-3.40); #Monocytes 0.8 thou/uL (0.11-0.59); #Neutrophils 5.3 thou/uL (1.40-6.50); %Basophils 1.5 % (0.0-1.0); %Eosinophils 6.7 % (0.0-10.0); %Lymphocytes 23.2 % (21.0-51.0); %Monocytes 9.1 % (0.0-10.0); %Neutrophils 59.5 % (42.0-75.0); Hemoglobin 15.9 g/dL (14.0-18.0); Mean Corpuscular HGB CONC 33.9 g/dL (32.0-36.0); Mean Corpuscular Hemoglobin 31.2 pg (27.0-31.0); Mean Corpuscular Volume 92.1 fL (78.0-98.0); Mean Platelet Volume 6.8 fL (7.4-10.4); Platelet Count 278 thou/uL (130-400); RBC Distribution Width 12.1 % (11.5-14.5); Red Blood Cell (RBC) Count 5.09 mill/uL (4.70-6.10); White Blood Cell (WBC) Count 8.9 thou/uL (4.8-10.8)
[2019-04-01 02:29] LABS: ALT (SGPT) 21 U/L (8-55); AST (SGOT) 18 U/L (5-34); Albumin 4.1 g/dL (3.4-4.8); Alkaline Phosphatase 91 U/L (40-110); Anion Gap 15 mmol/L (10-20); BUN (Urea Nitrogen) 8 mg/dL (8.4-25.7); Bilirubin, Total 1.2 mg/dL (0.2-1.2); Calc. Creatinine Clearance 0 mL/min (70-130); Calcium 9.2 mg/dL (7.8-10.44); Carbon Dioxide 20 mmol/L (23-31); Chloride 107 mmol/L (98-107); Estimated GFR-MDRD 84; Glucose 114 mg/dL (80-115); Potassium 3.3 mmol/L (3.5-5.1); Protein, Total 7.1 g/dL (5.8-8.1); Sodium 139 mmol/L (136-145)
--- NOTE | 2019-04-01 07:37 | RAD ---
XR Chest Pa Lat STANDARD History: Cough and shortness of breath Comparison: Radiograph January 20, 2019 Findings: Peripheral pleural-parenchymal scarring within the lingula and left lower lobe is similar. No new confluent airspace consolidation, pneumothorax, or effusion. BX silhouette and mediastinal contours are similar. No acute osseous abnormality. Radiopaque debris projects over the left shoulder. Impression: No acute intrathoracic abnormality nor significant change.
== END 2019-04-01 04:06 | disposition home or self-care (01) ==
LOC: ERS 01:43
DX: J44.1 Chronic obstructive pulmonary disease with (acute) exacerbation (principal); E10.9 Type 1 diabetes mellitus without complications; F41.9 Anxiety disorder, unspecified; Z87.891 Personal history of nicotine dependence; Z79.899 Other long term (current) drug therapy; Z79.84 Long term (current) use of oral hypoglycemic drugs; Z79.51 Long term (current) use of inhaled steroids
CPT/HCPCS: 71046; 80053; 83880; 84484; 85025; 87040; 87804; 93005; 94640; 96374; J2930; J7620

== ENCOUNTER 2019-05-05 22:49 | Emergency (ER) | payer MEDICARE, SELFPAY ==
[2019-05-05] MEDS ORDERED: Albuterol Sulfate 2.5 mg/3 ml Neb ONE (23:13)
--- NOTE | 2019-05-05 23:18 | RAD ---
Exam: Chest one view HISTORY:Dyspnea. Chest tightness. Comparison: 01/20/2019, 04/01/2019 FINDINGS: Cardiac silhouette: Normal Aorta: Unremarkable Pulmonary vessels: Normal Costophrenic angles: Chronic blunting of the left costophrenic angle likely due to scar LUNGS: No masses or consolidation. Chronic lung parenchymal changes. Pneumothorax: None Osseous abnormalities: Stable shrapnel projecting over the left humeral head IMPRESSION: No acute cardiopulmonary process.
[2019-05-05] MEDS ORDERED: Magnesium 2 GM/50 ML BAG (IN WATER) ONE (23:47)
[2019-05-06] MEDS ORDERED: Albuterol Sulfate 2.5 mg/3 ml Neb ONE (00:40)
[2019-05-06] MEDS ORDERED: methylPREDNISolone Sod Succ/PF 125 MG/2 ML VIAL ONE (00:41)
== END 2019-05-06 01:53 | disposition home or self-care (01) ==
LOC: ERS 22:49
DX: J44.1 Chronic obstructive pulmonary disease with (acute) exacerbation (principal); E10.9 Type 1 diabetes mellitus without complications; Z87.891 Personal history of nicotine dependence; Z79.899 Other long term (current) drug therapy; Z79.84 Long term (current) use of oral hypoglycemic drugs
CPT/HCPCS: 71045; 93005; 94640; 96365; 96375; J2930; J3475; J7611; J7620

== ENCOUNTER 2019-07-14 10:38 | Emergency (ER) | payer MEDICARE ==
[2019-07-14] MEDS ORDERED: Nitroglycerin 2% Ointment 1 INCH/1 GM Packet ONE (11:07)
[2019-07-14] MEDS ORDERED: Dexamethasone 10 MG/ML VIAL ONE (11:07)
[2019-07-14] MEDS ORDERED: Albuterol Sulfate 2.5 mg/0.5 ml Neb ONE ×2 (11:08)
[2019-07-14 11:15] LABS: #Basophils 0.1 thou/uL (0.0-0.2); #Eosinphils 0.7 thou/uL (0.0-0.7); #Lymphocytes 1.3 thou/uL (1.20-3.40); #Monocytes 0.6 thou/uL (0.11-0.59); #Neutrophils 5.8 thou/uL (1.40-6.50); %Basophils 0.8 % (0.0-1.0); %Eosinophils 8.4 % (0.0-10.0); %Lymphocytes 15.7 % (21.0-51.0); %Monocytes 6.9 % (0.0-10.0); %Neutrophils 68.2 % (42.0-75.0); Hemoglobin 16.1 g/dL (14.0-18.0); Mean Corpuscular HGB CONC 35.4 g/dL (32.0-36.0); Mean Corpuscular Hemoglobin 33.4 pg (27.0-31.0); Mean Corpuscular Volume 94.6 fL (78.0-98.0); Mean Platelet Volume 7.5 fL (7.4-10.4); Platelet Count 229 thou/uL (130-400); Red Blood Cell (RBC) Count 4.81 mill/uL (4.70-6.10); White Blood Cell (WBC) Count 8.5 thou/uL (4.8-10.8)
[2019-07-14 11:33] LABS: ALT (SGPT) 13 U/L (8-55); AST (SGOT) 9 U/L (5-34); Albumin 3.9 g/dL (3.4-4.8); Alkaline Phosphatase 120 U/L (40-110); Anion Gap 16 mmol/L (10-20); BUN (Urea Nitrogen) 11 mg/dL (8.4-25.7); Bilirubin, Total 0.8 mg/dL (0.2-1.2); Calc. Creatinine Clearance 0 mL/min (70-130); Calcium 9.3 mg/dL (7.8-10.44); Carbon Dioxide 20 mmol/L (23-31); Chloride 106 mmol/L (98-107); Estimated GFR-MDRD 75; Globulin 2.4 g/dL (2.4-3.5); Glucose 238 mg/dL (80-115); Lipase 32 U/L (8-78); Potassium 3.8 mmol/L (3.5-5.1); Protein, Total 6.3 g/dL (5.8-8.1); Sodium 138 mmol/L (136-145)
--- NOTE | 2019-07-14 12:24 | RAD ---
PORTABLE CHEST 1 VIEW: Date: 07/14/2019 Time: 1118 hours HISTORY: Shortness of breath, COPD. FINDINGS: Comparison made with exam of 05/05/2019. The heart size is normal. No lobar consolidation, pneumothoraces, or large effusions are seen. There is continued blunting of the left costophrenic angle which is a chronic finding. This was also seen o n the exam of 05/10/2017 and is consistent with scarring. Metallic density/shrapnel in the left proxi mal humerus is again seen. IMPRESSION: No acute process. POS: RENATA
[2019-07-14 14:48] LABS: Troponin I Less than 0.010 ng/mL (< 0.028)
== END 2019-07-14 15:15 | disposition home or self-care (01) ==
LOC: ERS 10:38
DX: J44.1 Chronic obstructive pulmonary disease with (acute) exacerbation (principal); R07.9 Chest pain, unspecified; E10.9 Type 1 diabetes mellitus without complications; F17.210 Nicotine dependence, cigarettes, uncomplicated; Z79.51 Long term (current) use of inhaled steroids; Z79.84 Long term (current) use of oral hypoglycemic drugs; Z79.52 Long term (current) use of systemic steroids; Z79.899 Other long term (current) drug therapy
CPT/HCPCS: 71045; 80053; 83690; 83880; 84484 ×2; 85025; 93005; 94640 ×2; 96374; 99285; J1100; J7620; 36415; J7611

== ENCOUNTER 2019-08-28 07:37 | Inpatient (IN) | payer MEDICARE ==
[2019-08-28] MEDS ORDERED: Magnesium 2 GM/50 ML BAG (IN WATER) ONE (08:21)
[2019-08-28 08:55] LABS: #Basophils 0.1 thou/uL (0.0-0.2); #Eosinphils 0.7 thou/uL (0.0-0.7); #Lymphocytes 1.5 thou/uL (1.20-3.40); #Monocytes 0.7 thou/uL (0.11-0.59); #Neutrophils 5.5 thou/uL (1.40-6.50); %Lymphocytes 17.9 % (21.0-51.0); %Monocytes 8.1 % (0.0-10.0); Hemoglobin 15.2 g/dL (14.0-18.0); Mean Corpuscular HGB CONC 34.2 g/dL (32.0-36.0); Mean Corpuscular Hemoglobin 32.3 pg (27.0-31.0); Mean Corpuscular Volume 94.4 fL (78.0-98.0); Mean Platelet Volume 6.9 fL (7.4-10.4); Platelet Count 222 thou/uL (130-400); RBC Distribution Width 11.7 % (11.5-14.5); Red Blood Cell (RBC) Count 4.69 mill/uL (4.70-6.10); White Blood Cell (WBC) Count 8.5 thou/uL (4.8-10.8)
[2019-08-28 09:16] LABS: ALT (SGPT) 18 U/L (8-55); AST (SGOT) 11 U/L (5-34); Albumin 3.8 g/dL (3.4-4.8); Alkaline Phosphatase 108 U/L (40-110); Anion Gap 13 mmol/L (10-20); BUN (Urea Nitrogen) 15 mg/dL (8.4-25.7); Bilirubin, Total 0.6 mg/dL (0.2-1.2); Calc. Creatinine Clearance 0 mL/min (70-130); Calcium 8.8 mg/dL (7.8-10.44); Carbon Dioxide 21 mmol/L (23-31); Chloride 108 mmol/L (98-107); Estimated GFR-MDRD 84; Globulin 2.6 g/dL (2.4-3.5); Glucose 152 mg/dL (80-115); Potassium 3.5 mmol/L (3.5-5.1); Protein, Total 6.4 g/dL (5.8-8.1); Sodium 138 mmol/L (136-145)
[2019-08-28] MEDS ORDERED: Ondansetron ODT 4 MG TAB SL PRN (12:45)
[2019-08-28] MEDS ORDERED: Acetaminophen 325 MG TAB PO PRN ×2 (12:45→18:26)
[2019-08-28] MEDS ORDERED: Ondansetron PF 4 MG/2 ML Vial IVP PRN ×2 (12:45→18:26)
[2019-08-28 13:03] VITALS: BMI 34.3
--- NOTE | 2019-08-28 13:51 | RAD ---
PORTABLE CHEST: History: Shortness of breath. COPD. Comparison: 07-14-2019 FINDINGS: Lung galaviz appear clear of infiltrate. No evidence of vascular congestion. Chronic parenchymal stran ding in the left peripheral lung appears stable. Heart and mediastinum unremarkable. Numerous metallic opacities overlie the left humeral head which is a stable finding. IMPRESSION: No acute finding. POS: AGW
[2019-08-28] MEDS ORDERED: Dextrose 5% in Water 1,000 ML IV PRN (18:26)
[2019-08-28] MEDS ORDERED: HYDROcodone/Acetaminophen 5/325 mg Tablet PO PRN (18:26)
[2019-08-28] MEDS ORDERED: hydrALAZINE 20 MG/ML VIAL SLOW IVP PRN (18:26)
[2019-08-28] MEDS ORDERED: Dextrose 50% Abboject 50 ML SYRINGE SLOW IVP PRN (18:26)
[2019-08-28] MEDS ORDERED: Ondansetron ODT 4 MG TAB PO PRN (18:26)
[2019-08-28] MEDS ORDERED: Meclizine HCl 25 MG TAB PO PRN (18:27)
[2019-08-28] MEDS ORDERED: hydrALAZINE 25 MG TAB PO PRN (18:29)
[2019-08-28] MEDS ORDERED: cefTRIAXone\\ROCEPHIN 1 GM in Sodium Chloride 0.9% 100 ML IVPB SCH (20:00)
[2019-08-28] MEDS: Famotidine 20 MG TAB PO SCH (20:06)
[2019-08-28] MEDS: Montelukast Sodium 10 mg Tablet PO SCH (20:07)
[2019-08-28] MEDS: HumaLOG 300 UNITS/3 ML VIAL SC PRN (20:53)
[2019-08-28] MEDS ORDERED: Azithromycin 500 MG in Sodium Chloride 0.9% 250 ML 250 ML IVPB SCH (21:00)
[2019-08-28] MEDS ORDERED: diphenhydrAMINE 25 MG CAP PO PRN (22:02)
[2019-08-28] MEDS ORDERED: diphenhydrAMINE 50 MG/ML VIAL IM SCH (22:15)
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
[2019-08-28] MEDS: methylPREDNISolone Sod Succ 40 MG VIAL IVP SCH (22:37)
[2019-08-29] MEDS: methylPREDNISolone Sod Succ 40 MG VIAL IVP SCH ×2 (05:42→08:48)
[2019-08-29] MEDS: HumaLOG 300 UNITS/3 ML VIAL SC PRN ×4 (05:42→20:42)
[2019-08-29 06:26] LABS: #Lymphocytes 0.8 thou/uL (1.20-3.40); #Monocytes 0.7 thou/uL (0.11-0.59); #Neutrophils 12.6 thou/uL (1.40-6.50); %Eosinophils 0.1 % (0.0-10.0); %Lymphocytes 5.6 % (21.0-51.0); %Monocytes 4.9 % (0.0-10.0); %Neutrophils 89.4 % (42.0-75.0); Hemoglobin 16.3 g/dL (14.0-18.0); Mean Corpuscular HGB CONC 34.6 g/dL (32.0-36.0); Mean Corpuscular Hemoglobin 33.2 pg (27.0-31.0); Mean Corpuscular Volume 95.7 fL (78.0-98.0); Mean Platelet Volume 7.1 fL (7.4-10.4); Platelet Count 257 thou/uL (130-400); RBC Distribution Width 12.1 % (11.5-14.5); Red Blood Cell (RBC) Count 4.93 mill/uL (4.70-6.10)
[2019-08-29 06:45] LABS: Anion Gap 18 mmol/L (10-20); BUN (Urea Nitrogen) 18 mg/dL (8.4-25.7); Calc. Creatinine Clearance 99 mL/min (70-130); Calcium 9.1 mg/dL (7.8-10.44); Carbon Dioxide 17 mmol/L (23-31); Chloride 105 mmol/L (98-107); Estimated GFR-MDRD 64; Glucose 334 mg/dL (80-115); Potassium 4.9 mmol/L (3.5-5.1); Sodium 135 mmol/L (136-145)
[2019-08-29] MEDS: Famotidine 20 MG TAB PO SCH ×2 (07:59→20:40)
[2019-08-29] MEDS: metFORMIN 500 MG TAB PO SCH (07:59)
[2019-08-29] MEDS: Enoxaparin Sodium 40 MG/0.4 ML SYRINGE SC SCH (08:01)
[2019-08-29] MEDS ORDERED: Insulin Glargine 8 UNITS in Pre-Filled Syringe 1 EACH SC SCH (08:15)
[2019-08-29] MEDS ORDERED: Insulin Glargine 8 UNITS in Pre-Filled Syringe 1 EACH SC ONE (09:00)
[2019-08-29] MEDS ORDERED: (Roflumilast [Daliresp] 250 MCG) PO SCH (09:00)
--- NOTE | 2019-08-29 12:28 | CON ---
DATE OF CONSULTATION: HISTORY OF PRESENT ILLNESS: Leonel Barrera is a 63-year-old gentleman, who has known history of COPD. He sees several different pulmonologists including people at the [facility], including Nain and Gabrielle. He presented yesterday with increasing shortness of breath and cough, unresponsive to his usual home medication. He has not been seen in the office for a very long period of time. He states that mostly, he is able to walk a fair distance without getting markedly short of breath. Additionally, he is complaining of some left-sided chest pain. PAST MEDICAL HISTORY: COPD, diabetes, and sleep apnea. PAST SURGICAL HISTORY: Pneumothorax, trach in the past. SOCIAL HISTORY: Alcohol and tobacco in the past, none recently. ALLERGIES: NONE. HOME MEDICATIONS: Include: 1. Prednisone 5. 2. Metformin 500. 3. Guaifenesin. 4. Zoloft 100. 5. Daliresp 250. 6. Singulair 10. 7. Meclizine 25. 8. Dexilant 60. REVIEW OF SYSTEMS: Otherwise, negative. PHYSICAL EXAMINATION: GENERAL: He is awake, alert, and responsive. VITAL SIGNS: Temperature 98, pulse 70, respiratory rate 20, saturations are 96% on room air, and blood pressure 130/73. CHEST: Minimal wheezing. CARDIAC: Normal S1 and S2. No gallops. ABDOMEN: No masses. LABORATORY DATA: White count 14,000. Lytes are normal. Glucose 334. X-ray is clear. IMPRESSION: Chronic obstructive pulmonary disease exacerbation, bronchitis, sleep apnea, and diabetes. PLAN: Switch him over to oral medication. He is stable and he could be discharged home in the next 24 to 48 hours. This is a consultation note, 70 minutes, 50% direct patient care. Job ID: [id number]
[2019-08-29] MEDS: Mometasone 200 MCG/Formoterol 5 MCG 120 PUFF INHALER INH SCH (17:47)
--- NOTE | 2019-08-29 19:09 | PDOC.HOSPP ---
- Subjective Encounter Date: 08/29/19 Encounter Time: 19:08 Subjective: Mr. Barrera was seen today in follow-up of COPD exacerbation. He is doing a bit better, but has had a few episodes of dyspnea and wheezing. He also noted a skin reaction and itching during the Azithromycin infusion. - Objective Vital Signs & Weight: Vital Signs (12 hours) Temp Pulse Resp BP Pulse Ox 08/29/19 17:48 97 08/29/19 17:47 102 H 20 97 08/29/19 17:45 102 H 20 97 08/29/19 16:00 98.1 F 96 20 143/73 H 94 L 08/29/19 12:11 90 16 95 08/29/19 12:04 97.7 F 76 18 139/72 93 L 08/29/19 08:00 96 08/29/19 07:21 98.5 F 78 20 134/73 96 Weight Weight 232 lb 8 oz I&O: 08/28/19 08/29/19 08/30/19 06:59 06:59 06:59 Intake Total 1280 Balance 1280 Result Diagrams: 08/29/19 06:02 08/29/19 06:02 Additional Labs: Accuchecks 08/29/19 08/29/19 08/29/19 16:35 12:13 04:54 POC Glucose 295 H 248 H 259 H 08/28/19 19:59 POC Glucose 265 H Hospitalist ROS - Medication Medications: Active Medications Generic Name Dose Route Start Last Admin Trade Name Freq PRN Reason Stop Dose Admin Albuterol/Ipratropium 3 ml 08/28/19 19:00 08/29/19 17:45 Duoneb NEB 3 ml [id number] ORACIO Administration Albuterol/Ipratropium 3 ml 08/28/19 18:26 08/29/19 04:42 Duoneb NEB 3 ml [id number] PRN Administration SOB &/or Wheezing Diphenhydramine HCl 50 mg 08/28/19 22:02 08/28/19 22:15 Benadryl PO 50 mg Q6H PRN Administration Itching & Insomnia Enoxaparin Sodium 40 mg 08/29/19 09:00 08/29/19 08:01 Lovenox SC 40 mg 09 ORACIO Administration Famotidine 20 mg 08/28/19 21:00 08/29/19 07:59 Pepcid PO 20 mg BID ORACIO Administration Insulin Human Lispro 0 units 08/28/19 18:26 08/29/19 17:08 Humalog SC 6 unit .MODERATE SLIDING SC PRN Administration Moderate Correctional Scale Insulin Human Lispro 0 units 08/28/19 18:26 08/28/19 20:53 Humalog SC 3 unit .BEDTIME SLIDING SC PRN Administration Bedtime Correctional Scale Metformin HCl 500 mg 08/29/19 09:00 08/29/19 07:59 Glucophage PO 500 mg DAILY ORACIO Administration Methylprednisolone Sodium Succinate 40 mg 08/29/19 09:00 08/29/19 08:48 Solu-Medrol IVP 40 mg DAILY ORACIO Administration Mometasone Furoate/Formoterol Fumar 2 puff 08/29/19 18:30 08/29/19 17:47 Dulera 200 Mcg/5 Mcg Inhaler INH 2 puff BID-RT ORACIO Administration Montelukast Sodium 10 mg 08/28/19 21:00 08/28/19 20:07 Singulair PO 10 mg HS ORACIO Administration Pantoprazole Sodium 40 mg 08/28/19 21:00 08/28/19 20:07 Protonix PO 40 mg HS ORACIO Administration Sertraline HCl 100 mg 08/29/19 09:00 08/29/19 07:59 Zoloft PO 100 mg DAILY ORACIO Administration Sodium Chloride 10 ml 08/29/19 09:00 08/29/19 08:47 Flush - Normal Saline IVF 10 ml Q12HR ORACIO Administration - Exam Eye: PERRL, anicteric sclera Heart: RRR, no murmur, no gallops, no rubs, normal peripheral pulses Respiratory: no rales, rhonchi, wheezes (+ bilateral wheezing and rhonchi) Gastrointestinal: soft, non-tender, non-distended, normal bowel sounds, no palpable masses, no hepatomegaly Extremities: no cyanosis, 1+ LE edema (trace pedal edema bilaterally) Hosp A/P (1) Acute on chronic respiratory failure with hypoxemia Code(s): J96.21 - ACUTE AND CHRONIC RESPIRATORY FAILURE WITH HYPOXIA Status: Acute (2) COPD exacerbation Code(s): J44.1 - CHRONIC OBSTRUCTIVE PULMONARY DISEASE W (ACUTE) EXACERBATION Status: Acute (3) Diabetes mellitus Code(s): E11.9 - TYPE 2 DIABETES MELLITUS WITHOUT COMPLICATIONS Status: Chronic (4) GERD (gastroesophageal reflux disease) Code(s): K21.9 - GASTRO-ESOPHAGEAL REFLUX DISEASE WITHOUT ESOPHAGITIS Status: Chronic Qualifiers: Esophagitis presence: esophagitis presence not specified Qualified Code(s) : K21.9 - Gastro-esophageal reflux disease without esophagitis (5) REMINGTON (obstructive sleep apnea) Code(s): G47.33 - OBSTRUCTIVE SLEEP APNEA (ADULT) (PEDIATRIC) Status: Chronic (6) Obesity (BMI 30-39.9) Code(s): E66.9 - OBESITY, UNSPECIFIED Status: Chronic - Plan * Acute on chronic exacerbation of COPD- continue Dounebs, and inhaled steroids, * Antibiotics have been transition to Doxycycline, and Azithromycin has been entered as an allergy * Begin to antoinette steroids * Echo results noted * DM- blood glucose is elevated due to steroids- will continue to antoinette steroids, and continue SSI * HTN- blood pressure is stable
[2019-08-29] MEDS: Doxycycline 100 MG CAP PO SCH (20:40)
[2019-08-29] MEDS: Montelukast Sodium 10 mg Tablet PO SCH (20:40)
[2019-08-30] MEDS: Mometasone 200 MCG/Formoterol 5 MCG 120 PUFF INHALER INH SCH (07:12)
[2019-08-30] MEDS: Enoxaparin Sodium 40 MG/0.4 ML SYRINGE SC SCH (08:45)
[2019-08-30] MEDS: methylPREDNISolone Sod Succ 40 MG VIAL IVP SCH (08:45)
[2019-08-30] MEDS: metFORMIN 500 MG TAB PO SCH (08:46)
[2019-08-30] MEDS: Doxycycline 100 MG CAP PO SCH (08:46)
[2019-08-30] MEDS: Famotidine 20 MG TAB PO SCH (08:46)
[2019-08-30 11:19] VITALS: BP 109/79; TEMP 98
--- NOTE | 2019-08-30 12:45 | PRG ---
DATE OF SERVICE: 08/30/2019 SUBJECTIVE: This morning, the patient is better. His echo was normal. OBJECTIVE: VITAL SIGNS: Pulse 67, respirations 16, saturations 96% on room air, blood pressure 126/69. CHEST: Minimal wheezing. CARDIAC: Normal S1 and S2. No gallops. ABDOMEN: No masses. IMPRESSION: Chronic obstructive pulmonary disease exacerbation, bronchitis, sleep apnea, and normal echo. Disposition home any time. Switch him to p.o. prednisone. Job ID: [id number]
--- NOTE | 2019-08-30 14:48 | PDOC.HOSPP ---
- Subjective Encounter Date: 08/30/19 Encounter Time: 14:47 Subjective: Mr. Barrera was seen today in follow-up of COPD exacerbation. He is breathing better. - Objective Vital Signs & Weight: Vital Signs (12 hours) Temp Pulse Resp BP Pulse Ox 08/30/19 11:42 70 16 98 08/30/19 11:15 98.0 F 98 20 109/79 97 08/30/19 07:28 67 16 126/69 96 08/30/19 07:14 98 08/30/19 07:12 59 L 20 98 08/30/19 05:05 78 16 97 08/30/19 04:00 97.7 F 78 18 151/80 H 96 08/30/19 03:46 75 16 94 L Weight Weight 232 lb 8 oz I&O: 08/29/19 08/30/19 08/31/19 06:59 06:59 06:59 Intake Total 1280 Balance 1280 Result Diagrams: 08/29/19 06:02 08/29/19 06:02 Additional Labs: Accuchecks 08/30/19 08/30/19 08/29/19 11:24 05:00 19:37 POC Glucose 188 H 181 H 203 H 08/29/19 16:35 POC Glucose 295 H Hospitalist ROS - Medication Medications: Active Medications Generic Name Dose Route Start Last Admin Trade Name Freq PRN Reason Stop Dose Admin Albuterol/Ipratropium 3 ml 08/28/19 19:00 08/30/19 11:42 Duoneb NEB 3 ml [id number] ORACIO Administration Albuterol/Ipratropium 3 ml 08/28/19 18:26 08/29/19 04:42 Duoneb NEB 3 ml [id number] PRN Administration SOB &/or Wheezing Diphenhydramine HCl 50 mg 08/28/19 22:02 08/28/19 22:15 Benadryl PO 50 mg Q6H PRN Administration Itching & Insomnia Doxycycline Hyclate 100 mg 08/29/19 21:00 08/30/19 08:46 Vibramycin PO 09/03/19 21:01 100 mg BID ORACIO Administration Enoxaparin Sodium 40 mg 08/29/19 09:00 08/30/19 08:45 Lovenox SC 40 mg 09 ORACIO Administration Famotidine 20 mg 08/28/19 21:00 08/30/19 08:46 Pepcid PO 20 mg BID ORACIO Administration Insulin Human Lispro 0 units 08/28/19 18:26 08/29/19 17:08 Humalog SC 6 unit .MODERATE SLIDING SC PRN Administration Moderate Correctional Scale Insulin Human Lispro 0 units 08/28/19 18:26 08/29/19 20:42 Humalog SC 2 unit .BEDTIME SLIDING SC PRN Administration Bedtime Correctional Scale Metformin HCl 500 mg 08/29/19 09:00 08/30/19 08:46 Glucophage PO 500 mg DAILY ORACIO Administration Methylprednisolone Sodium Succinate 40 mg 08/29/19 09:00 08/30/19 08:45 Solu-Medrol IVP 40 mg DAILY ORACIO Administration Mometasone Furoate/Formoterol Fumar 2 puff 08/29/19 18:30 08/30/19 07:12 Dulera 200 Mcg/5 Mcg Inhaler INH 2 puff BID-RT ORACIO Administration Montelukast Sodium 10 mg 08/28/19 21:00 08/29/19 20:40 Singulair PO 10 mg HS ORACIO Administration Pantoprazole Sodium 40 mg 08/28/19 21:00 08/29/19 20:40 Protonix PO 40 mg HS ORACIO Administration Sertraline HCl 100 mg 08/29/19 09:00 08/30/19 08:46 Zoloft PO 100 mg DAILY ORACIO Administration Sodium Chloride 10 ml 08/29/19 09:00 08/30/19 08:46 Flush - Normal Saline IVF 10 ml Q12HR ORACIO Administration - Exam Eye: PERRL, anicteric sclera Heart: RRR, no murmur, no gallops, no rubs, normal peripheral pulses Respiratory: CTAB (+ mild expiratory wheeze) Gastrointestinal: soft, non-tender, non-distended, normal bowel sounds, no palpable masses, no hepatomegaly Extremities: no cyanosis, no edema Hosp A/P (1) Acute on chronic respiratory failure with hypoxemia Code(s): J96.21 - ACUTE AND CHRONIC RESPIRATORY FAILURE WITH HYPOXIA Status: Acute (2) COPD exacerbation Code(s): J44.1 - CHRONIC OBSTRUCTIVE PULMONARY DISEASE W (ACUTE) EXACERBATION Status: Acute (3) Diabetes mellitus Code(s): E11.9 - TYPE 2 DIABETES MELLITUS WITHOUT COMPLICATIONS Status: Chronic (4) GERD (gastroesophageal reflux disease) Code(s): K21.9 - GASTRO-ESOPHAGEAL REFLUX DISEASE WITHOUT ESOPHAGITIS Status: Chronic Qualifiers: Esophagitis presence: esophagitis presence not specified Qualified Code(s) : K21.9 - Gastro-esophageal reflux disease without esophagitis (5) REMINGTON (obstructive sleep apnea) Code(s): G47.33 - OBSTRUCTIVE SLEEP APNEA (ADULT) (PEDIATRIC) Status: Chronic (6) Obesity (BMI 30-39.9) Code(s): E66.9 - OBESITY, UNSPECIFIED Status: Chronic - Plan * Acute on chronic exacerbation of COPD- improving * Stable for discharge home.
--- NOTE | 2019-08-30 19:48 | DIS ---
DATE OF ADMISSION: 08/28/2019 DATE OF DISCHARGE: 08/30/2019 DISCHARGE DISPOSITION: Home. DISCHARGE DIAGNOSES: 1. Acute on chronic respiratory failure with hypoxemia. 2. Chronic obstructive pulmonary disease exacerbation. 3. Hypertension. 4. Diabetes mellitus, type 2. 5. Obstructive sleep apnea. DISCHARGE MEDICATIONS: 1. Zoloft 100 mg at bedtime. 2. Daliresp 250 mcg inhaled daily. 3. Prednisone 20 mg daily for 4 days. 4. Doxycycline 100 mg twice daily. 5. Singulair 10 mg daily. 6. He is to resume 5 mg of prednisone daily after the taper. 7. Meclizine 25 mg t.i.d. 8. Dexilant 60 mg at bedtime. 9. Ventolin inhaler q.4 hours as needed. IMAGING: Includes echocardiogram with an ejection fraction of 55% to 60% and left atrium was normal size. No evidence of any significant valvular disease. CODE STATUS: Full code. ALLERGIES: HONEY VENOM, LEVAQUIN, AND AZITHROMYCIN. HOSPITAL COURSE: Mr. Barrera is a pleasant 63-year-old gentleman, who came to the hospital with complaints of shortness of breath and wheezing. He has a known history of COPD. Chest x-ray was essentially clear. It is felt that the patient's symptoms were due to COPD exacerbation. He was started on antibiotics, as well as DuoNeb and steroids. He had good improvement with this treatment and was able to be discharged home on 08/30/2019. An echo was done to rule out any significant heart failure, which may have symptoms and this was essentially within normal limits. Job ID: [id number]
== END 2019-08-30 17:23 | disposition home or self-care (01) | DRG 189 ==
LOC: ERS 07:37 → OBSVTOIN 12:37 → T4-B 12:37
PROVIDERS: ADMIT Internal Medicine; ATTEND Internal Medicine
DX: J96.21 Acute and chronic respiratory failure with hypoxia (principal); J44.1 Chronic obstructive pulmonary disease with (acute) exacerbation; G47.33 Obstructive sleep apnea (adult) (pediatric); E11.22 Type 2 diabetes mellitus with diabetic chronic kidney disease; N18.9 Chronic kidney disease, unspecified; I12.9 Hypertensive chronic kidney disease with stage 1 through stage 4 chronic kidney disease, or unspecified chronic kidney disease; E66.9 Obesity, unspecified; Z88.1 Allergy status to other antibiotic agents; Z79.51 Long term (current) use of inhaled steroids; Z79.899 Other long term (current) drug therapy; Z79.52 Long term (current) use of systemic steroids; Z79.84 Long term (current) use of oral hypoglycemic drugs; Z99.81 Dependence on supplemental oxygen; Z68.34 Body mass index [BMI] 34.0-34.9, adult
CPT/HCPCS: 36415; 36416; 71045; 80048; 80053; 84484; 85025; 93005; 93306; 94640; 94660; J0456; J0696; J1650; J1815; J2920; J3475; J3490; J7050; J7620; Q0163

== ENCOUNTER 2019-09-14 09:36 | Emergency (ER) | payer MEDICARE, OTHER ==
[2019-09-14] MEDS ORDERED: predniSONE 20 MG TAB ONE (10:13)
[2019-09-14] MEDS ORDERED: Magnesium 2 GM/50 ML BAG (IN WATER) ONE (10:13)
[2019-09-14] MEDS ORDERED: Albuterol 200 PUFF (6.7GM INHALER) ONE (10:15)
[2019-09-14 10:56] LABS: #Basophils 0.1 thou/uL (0.0-0.2); #Eosinphils 0.7 thou/uL (0.0-0.7); #Lymphocytes 1.3 thou/uL (1.20-3.40); #Monocytes 0.6 thou/uL (0.11-0.59); %Basophils 0.9 % (0.0-1.0); %Eosinophils 7.1 % (0.0-10.0); %Lymphocytes 13.3 % (21.0-51.0); %Monocytes 6.6 % (0.0-10.0); %Neutrophils 72.1 % (42.0-75.0); Mean Corpuscular Hemoglobin 31.7 pg (27.0-31.0); Mean Corpuscular Volume 93.3 fL (78.0-98.0); Mean Platelet Volume 7.2 fL (7.4-10.4); Platelet Count 241 thou/uL (130-400); RBC Distribution Width 11.6 % (11.5-14.5); Red Blood Cell (RBC) Count 4.71 mill/uL (4.70-6.10); White Blood Cell (WBC) Count 9.8 thou/uL (4.8-10.8)
--- NOTE | 2019-09-14 11:08 | RAD ---
Exam: Chest one view HISTORY:Cough and shortness of breath Comparison: 08/28/2019 FINDINGS: Cardiac silhouette: Normal Aorta: Unremarkable Pulmonary vessels: Normal Costophrenic angles: Blunting of the left costophrenic angle due to small effusion. LUNGS: Possible parenchymal changes in the left lung base. Pneumothorax: None Osseous abnormalities: None IMPRESSION: Blunting of left costophrenic angle likely due to small effusion. Likely adjacent parench ymal changes.
[2019-09-14 12:03] LABS: ALT (SGPT) 23 U/L (8-55); AST (SGOT) 23 U/L (5-34); Albumin 3.8 g/dL (3.4-4.8); Alkaline Phosphatase 92 U/L (40-110); Anion Gap 15 mmol/L (10-20); BUN (Urea Nitrogen) 13 mg/dL (8.4-25.7); Bilirubin, Total 0.7 mg/dL (0.2-1.2); Calc. Creatinine Clearance 0 mL/min (70-130); Calcium 9.1 mg/dL (7.8-10.44); Carbon Dioxide 20 mmol/L (23-31); Chloride 109 mmol/L (98-107); Estimated GFR-MDRD 78; Globulin 2.9 g/dL (2.4-3.5); Glucose 119 mg/dL (80-115); Potassium 4.6 mmol/L (3.5-5.1); Protein, Total 6.7 g/dL (5.8-8.1); Sodium 139 mmol/L (136-145)
[2019-09-15 12:10] LABS: SARS-CoV-2 MS2 Positive; SARS-CoV-2 N Gene Negative; SARS-CoV-2 S Gene Negative; SARS-CoV-2 orf1ab Negative
== END 2019-09-14 12:20 | disposition home or self-care (01) ==
LOC: ERS 09:36
DX: J44.0 Chronic obstructive pulmonary disease with (acute) lower respiratory infection (principal); J18.9 Pneumonia, unspecified organism; J44.1 Chronic obstructive pulmonary disease with (acute) exacerbation; Z20.828 Contact with and (suspected) exposure to other viral communicable diseases; E10.9 Type 1 diabetes mellitus without complications; Z87.891 Personal history of nicotine dependence; Z79.52 Long term (current) use of systemic steroids; Z79.899 Other long term (current) drug therapy; Z79.51 Long term (current) use of inhaled steroids
CPT/HCPCS: 71045; 80053; 84484; 85025; 93005; 96365; 99285; U0003; 87635; J3475; J7512

== ENCOUNTER 2019-10-19 13:19 | Outpatient (CLI) | payer MEDICARE ==
--- NOTE | 2019-10-19 13:31 | RAD ---
EXAM: Chest 2 views: HISTORY: Dyspnea COMPARISON: 04/01/2019 FINDINGS: There is a normal-sized cardiomediastinal silhouette. There is no evidence of consolidation, mass, or pleural effusion. The bones are unremarkable. IMPRESSION: No evidence of acute cardiopulmonary disease
== END 2019-10-19 13:20 | disposition home or self-care (01) ==
LOC: BICRAD 13:19
PROVIDERS: ATTEND Internal Medicine Pulmonary Disease
DX: R06.00 Dyspnea, unspecified (principal)
CPT/HCPCS: 71046

== ENCOUNTER 2020-04-09 08:11 | Emergency (ER) | payer MEDICARE ==
[2020-04-09 08:37] LABS: #Basophils 0.1 thou/uL (0.0-0.2); #Eosinphils 0.5 thou/uL (0.0-0.7); #Lymphocytes 1.6 thou/uL (1.20-3.40); #Monocytes 0.8 thou/uL (0.11-0.59); #Neutrophils 6.5 thou/uL (1.40-6.50); %Basophils 0.9 % (0.0-1.0); %Eosinophils 5.3 % (0.0-10.0); %Lymphocytes 16.5 % (21.0-51.0); %Monocytes 8.9 % (0.0-10.0); %Neutrophils 68.3 % (42.0-75.0); Hemoglobin 15.6 g/dL (14.0-18.0); Mean Corpuscular HGB CONC 34.1 g/dL (32.0-36.0); Mean Corpuscular Hemoglobin 32.3 pg (27.0-31.0); Mean Corpuscular Volume 94.5 fL (78.0-98.0); Mean Platelet Volume 7.3 fL (7.4-10.4); Platelet Count 229 thou/uL (130-400); RBC Distribution Width 11.8 % (11.5-14.5); Red Blood Cell (RBC) Count 4.85 mill/uL (4.70-6.10); White Blood Cell (WBC) Count 9.5 thou/uL (4.8-10.8)
--- NOTE | 2020-04-09 08:37 | RAD ---
XR Chest 1 View Portable History: Dyspnea Comparison: Radiograph October 19, 2019 Findings: Peripheral scar within the lingula and left lower lobe is similar. No clinical airspace con solidation, pneumothorax or effusion. Dense radiopaque debris projects of the left humeral head. Impression: Chronic findings. No acute intrathoracic abnormality.
[2020-04-09 08:56] LABS: ALT (SGPT) 31 U/L (8-55); AST (SGOT) 16 U/L (5-34); Alkaline Phosphatase 92 U/L (40-110); Anion Gap 16 mmol/L (10-20); BUN (Urea Nitrogen) 14 mg/dL (8.4-25.7); Bilirubin, Total 0.9 mg/dL (0.2-1.2); Calc. Creatinine Clearance 0 mL/min (70-130); Calcium 9.2 mg/dL (7.8-10.44); Carbon Dioxide 22 mmol/L (23-31); Chloride 106 mmol/L (98-107); Globulin 2.8 g/dL (2.4-3.5); Glucose 139 mg/dL (80-115); Potassium 3.8 mmol/L (3.5-5.1); Protein, Total 6.8 g/dL (5.8-8.1); Sodium 140 mmol/L (136-145)
[2020-04-09] MEDS ORDERED: predniSONE 20 MG TAB ONE ×2 (09:09→09:10)
[2020-04-09] MEDS ORDERED: Albuterol 200 PUFF (6.7GM INHALER) ONE (09:09)
[2020-04-09 14:19] LABS: SARS-CoV-2 PCR by NAA Not Detected (NotDetected)
--- NOTE | 2020-04-27 21:50 | EKG ---
Test Reason : SOB Blood Pressure : / mmHG Vent. Rate : 090 BPM Atrial Rate : 090 BPM P-R Int : 188 ms QRS Dur : 088 ms QT Int : 336 ms P-R-T Axes : 053 076 032 degrees QTc Int : 411 ms Normal sinus rhythm Normal ECG Confirmed by RUSSELL PATEL DO ([id number]), editor department BEENA DOWELL ([id number]) on 04/27/2020 9:50:13 PM Referred By: Confirmed By:RUSSELL PATEL DO
== END 2020-04-09 09:46 | disposition home or self-care (01) ==
LOC: ERS 08:11
DX: J44.1 Chronic obstructive pulmonary disease with (acute) exacerbation (principal); Z20.822 Contact with and (suspected) exposure to COVID-19; E11.9 Type 2 diabetes mellitus without complications; G47.30 Sleep apnea, unspecified; Z87.891 Personal history of nicotine dependence; Z79.51 Long term (current) use of inhaled steroids; Z79.899 Other long term (current) drug therapy
CPT/HCPCS: 71045; 80053; 84484; 85025; 93005; U0003; U0005; 87635; J7512

== ENCOUNTER 2020-05-06 05:22 | Emergency (ER) | payer MEDICARE ==
[2020-05-06] MEDS ORDERED: Ibuprofen 200 MG TAB ONE (05:38)
--- NOTE | 2020-05-07 08:42 | RAD ---
4 VIEWS RIGHT KNEE: Date: 05/06/2020 COMPARISON: None. HISTORY: Pain. FINDINGS: The lateral examination demonstrates no significant knee joint effusion. There is no displaced fractu re or evidence of dislocation seen. There is mild medial compartment narrowing. IMPRESSION: No displaced fracture or evidence of dislocation. POS: ROBER
== END 2020-05-06 06:02 | disposition home or self-care (01) ==
LOC: EDBD → ERS 05:22
DX: M25.561 Pain in right knee (principal); W00.0XXA Fall on same level due to ice and snow, initial encounter

== ENCOUNTER 2020-05-10 18:59 | Emergency (ER) | payer MEDICARE ==
[2020-05-10] MEDS ORDERED: methylPREDNISolone Sod Succ/PF 125 MG/2 ML VIAL ONE (20:35)
[2020-05-10] MEDS ORDERED: Doxycycline 100 MG CAP PO SCH (20:45)
--- NOTE | 2020-05-10 21:04 | RAD ---
Portable frontal chest radiograph: 05/10/2020 COMPARISON: 04/09/2020 HISTORY: Shortness of breath, COPD, cough FINDINGS: Stable interstitial prominence and pulmonary hyperinflation consistent with the provided hi story of COPD. Stable blunting of the costophrenic angle on the left suggesting left pleural thickening, small volume pleural fluid, and/or pleural scar. No focal consolidation or alveolar edema . IMPRESSION: Stable appearance of the chest as detailed above.
== END 2020-05-10 21:21 | disposition home or self-care (01) ==
LOC: EDBD 18:59 → ERS 18:59
DX: J45.901 Unspecified asthma with (acute) exacerbation (principal); Z87.891 Personal history of nicotine dependence; Z79.51 Long term (current) use of inhaled steroids
CPT/HCPCS: 71045; 96372; J2930